=== PATIENT | male | born 1960 | race Hispanic/Latino ===

== ENCOUNTER 2017-07-14 10:44 | Inpatient (IN) | payer MEDICAID, OTHER ==
--- NOTE | 2017-07-14 11:52 | C.PDOC ---
Time Seen by Provider: 07/14/17 11:41 Chief Complaint (Nursing): Lower Extremity Problem/Injury Past Medical History Vital Signs: Last Vital Signs Temp 97.7 F 07/14/17 10:50 Pulse 95 H 07/14/17 10:50 Resp 18 07/14/17 10:50 BP 138/88 07/14/17 10:50 Pulse Ox 96 07/14/17 10:50 - Social History Hx Alcohol Use: Yes Hx Substance Use: Yes ED Course And Treatment O2 Sat by Pulse Oximetry: 96 Progress - Data Reviewed Data Reviewed: Lab, Diagnostic imaging, EKG, Old records Disposition - Disposition Forms: [employer] [employer] (Estonian)
--- NOTE | 2017-07-14 11:54 | C.PDOC ---
History Of Present Illness 56 Y/O MALE C/O NEW ONSET WORSENING KIRKPATRICK FOR SEVERAL MONTHS; NEW ONSET BILATERAL LEG SWELLING FOR 2 WEEKS. PT STATES HIS RIGHT LEG IS CHRONICALLY THINNER VS. LEFT DUE TO PRIOR INJURY. DENIES CHEST PAIN. NOT ON ANY DIURETICS. NO KNOWN HEART PROBLEMS. DENIES SMOKING OR OTHER LUNG DISEASE. EXAM LUNGS CLEAR, L > R LEG SWELLING. BILATERAL. 2+ PITTING EDEMA. NO CELLULITIS. Time Seen by Provider: 07/14/17 11:41 Chief Complaint (Nursing): Lower Extremity Problem/Injury History Per: Patient History/Exam Limitations: no limitations Onset/Duration Of Symptoms: Days Current Symptoms Are (Timing): Still Present Recent travel outside of the [place]: No Past Medical History Reviewed: Historical Data, Nursing Documentation, Vital Signs Vital Signs: Last Vital Signs Temp 97.7 F 07/14/17 10:50 Pulse 83 07/14/17 13:45 Resp 19 07/14/17 13:45 BP 136/95 H 07/14/17 13:45 Pulse Ox 96 07/14/17 15:43 - Medical History PMH: No Chronic Diseases Family History: States: Unknown Family Hx - Social History Hx Alcohol Use: Yes Hx Substance Use: Yes Review Of Systems Except As Marked, All Systems Reviewed And Found Negative. Constitutional: Negative for: Fever, Chills Cardiovascular: Negative for: Chest Pain, Palpitations Respiratory: Positive for: SOB with Excertion. Negative for: Cough Gastrointestinal: Negative for: Nausea, Vomiting, Abdominal Pain Musculoskeletal: Positive for: Other (LEG SWELLING) Skin: Negative for: Rash Neurological: Negative for: Headache, Dizziness Physical Exam - Physical Exam Appears: Non-toxic, No Acute Distress Skin: Normal Color, Warm, Dry Head: Atraumatic, Normacephalic Oral Mucosa: Moist Chest: Symmetrical Cardiovascular: Rhythm Regular Respiratory: Normal Breath Sounds, No Rales, No Rhonchi, No Wheezing Gastrointestinal/Abdominal: Soft, No Tenderness, No Guarding, No Rebound Back: Normal Inspection Extremity: Normal ROM, Capillary Refill (< 2 SEC.), Other (L > R LEG SWELLING. BILATERAL. 2+ PITTING EDEMA. NO CELLULITIS. ) Neurological/Psych: Oriented x3, Normal Speech, Normal Cognition ED Course And Treatment - Laboratory Results Result Diagrams: 07/14/17 12:07 07/14/17 12:07 ECG: Interpreted By Me ECG Rhythm: Sinus Rhythm Interpretation Of ECG: Prolonged QT Rate From EC (bpm) O2 Sat by Pulse Oximetry: 96 (RA) Pulse Ox Interpretation: Normal - Radiology CXR: Interpreted by Me CXR Interpretation: Yes: No Acute Disease - CT Scan/US CT Chest Other Rad Studies (CT/US): Read By Radiologist, Radiology Report Reviewed CT/US Interpretation: Findings: Visualized portions of the inferior thyroid gland appear unremarkable. The mediastinal and hilar vascular structures appear within normal limits. The heart appears within normal limits of size. No large central or segmental pulmonary embolus evident. No focal consolidation. No pleural effusion. No pneumothorax. No suspicious pulmonary nodules measuring greater than 5 mm. Limited visualized portions of the upper abdomen demonstrates diffuse hypoattenuation of the visualized liver consistent with hepatic steatosis. 18 mm probable splenule. Degenerative changes of the spine including confluent anterior osteophyte formation. Impression: No large central or segmental pulmonary embolus identified. Hepatic steatosis. Progress - Re-Evaluation Re-evaluation Note: 07/14/17 15:42 EXAM UN[facility] D/W DR NUNEZ WILL ADMIT - Data Reviewed Data Reviewed: Lab, Diagnostic imaging, EKG, Old records Disposition Counseled Patient/Family Regarding: Studies Performed, Diagnosis - Disposition Disposition: HOSPITALIZED Disposition Time: 15:42 Condition: STABLE - POA Present On Arrival: None - Clinical Impression Clinical Impression: Leg edema, KIRKPATRICK (dyspnea on exertion), Abnormal liver enzymes - Scribe Statement The provider has reviewed the documentation as recorded by the Scribe [facility] [place] All medical record entries made by the Scribe were at my direction and personally dictated by me. I have reviewed the chart and agree that the record accurately reflects my personal performance of the history, physical exam, medical decision making, and the department course for this patient. I have also personally directed, reviewed, and agree with the discharge instructions and disposition. Decision To Admit - Pt Status Changed To: Hospital Disposition Of: Observation - . Bed Request Type: Regular Admitting Physician: Abimael Nunez Patient Diagnosis: Leg edema, KIRKPATRICK (dyspnea on exertion), Abnormal liver enzymes
[2017-07-14 12:16] LABS: BASO # 0.1 K/uL (0.0-0.2); BASO % 0.8 % (0.0-2.0); EOS # 0.1 K/uL (0.0-0.7); EOS % 1.1 % (0.0-4.0); HEMATOCRIT 39.1 % (35.0-51.0); LYMPH # 1.9 K/uL (1.0-4.3); LYMPH % 24.1 % (20.0-40.0); MEAN CELL VOLUME 114.2 fL (80.0-94.0); MEAN CORPUSCULAR HEMOGLOBIN 39.3 pg (27.0-31.0); MEAN CORPUSCULAR HGB CONC 34.4 g/dL (33.0-37.0); MEAN PLATELET VOLUME 7.6 fL (7.2-11.7); MONO % 12.9 % (0.0-10.0); WHITE BLOOD COUNT 7.9 K/uL (4.8-10.8)
[2017-07-14 12:29] LABS: INR 1.1
--- NOTE | 2017-07-14 12:29 | RAD ---
HISTORY: SOB COMPARISON: No prior. TECHNIQUE: Chest PA and lateral FINDINGS: LUNGS: There appears to be some mild pleural-based scarring and tenting right hemidiaphragm. . Note that small nodules or masses may be not visualized on plain film radiographs and there is any concern, followup CT scan recommended PLEURA: No significant pleural effusion identified. No pneumothorax apparent. CARDIOVASCULAR: Normal. OSSEOUS STRUCTURES: ACDF plate seen overlying the lower cervical spine. Mild moderate multilevel degenerative spondylosis of the thoracic spine VISUALIZED UPPER ABDOMEN: Normal. OTHER FINDINGS: None. IMPRESSION: Mild pleural-based scarring and tenting right hemidiaphragm. . See above discussion for additional details
[2017-07-14 12:30] LABS: CHLORIDE 103 mmol/L (98-107); POTASSIUM 3.2 mmol/L (3.6-5.2); SODIUM 141 mmol/L (132-148)
[2017-07-14 12:32] LABS: AST/SGOT 223 U/L (17-59); CARBON DIOXIDE 25 mmol/L (22-30); GFR AFRICAN-AMERICAN > 60
[2017-07-14 12:33] LABS: ALB/GLOB RATIO 0.8 (1.0-2.1); ALKALINE PHOSPHATASE 195 U/L (38-126); ALT/SGPT 84 U/L (21-72); BLOOD UREA NITROGEN 3 mg/dL (9-20); CALCIUM 7.9 mg/dl (8.6-10.4); GLUCOSE,RANDOM 121 mg/dL (75-110); TOTAL PROTEIN 6.7 g/dL (6.3-8.3)
[2017-07-14] MEDS ORDERED: Iodixanol 320 MG/ML 100 ML BOTTLE IV ONE (14:07)
--- NOTE | 2017-07-14 15:26 | CT ---
CTA chest PE protocol Indication: Shortness of breath, rule out PE Technique: Contiguous axial images were obtained through the chest with intravenous contrast enhancement. Sagittal and coronal reconstructions were generated and reviewed. This CT exam was performed using 1 or more of the falling dose reduction techniques: Automated exposure control, adjustment of the MAA and/or kV according to patient size, and/or use of iterative reconstruction technique. IV Contrast: 100 mL Visipaque Radiation dose (DLP): 598.53 MGy-cm. Comparison: Chest x-ray performed 07/14/17 Findings: Visualized portions of the inferior thyroid gland appear unremarkable. The mediastinal and hilar vascular structures appear within normal limits. The heart appears within normal limits of size. No large central or segmental pulmonary embolus evident. No focal consolidation. No pleural effusion. No pneumothorax. No suspicious pulmonary nodules measuring greater than 5 mm. Limited visualized portions of the upper abdomen demonstrates diffuse hypoattenuation of the visualized liver consistent with hepatic steatosis. 18 mm probable splenule. Degenerative changes of the spine including confluent anterior osteophyte formation. Impression: No large central or segmental pulmonary embolus identified. Hepatic steatosis.
[2017-07-14] MEDS ORDERED: Potassium Chloride 20 mEq ER Tab PO ONE ×2 (15:56→16:48)
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
[2017-07-14 16:49] LABS: PHOSPHOROUS 2.2 mg/dL (2.5-4.5)
[2017-07-14 17:08] LABS: T4 7.91 ug/dL (5.5-11.0)
[2017-07-14 17:21] LABS: THYROID STIMULATING HORMONE 1.85 mIU/L (0.46-4.68)
--- NOTE | 2017-07-14 19:07 | US ---
HISTORY: cirrhosis COMPARISON: None. TECHNIQUE: Sonographic evaluation of the abdomen. FINDINGS: LIVER: Liver demonstrates increased echogenicity, likely representing hepatic parenchymal disease or fatty infiltration. This limits evaluation for small masses. No focal large liver mass is identified. No intrahepatic biliary ductal dilatation is identified. Portal vein is patent with normal hepatopetal flow. GALLBLADDER: The gallbladder is physiologically distended. No gallstones, gallbladder wall thickening, or pericholecystic fluid is identified.No sonographic Padilla's sign was appreciated during the exam. COMMON BILE DUCT: Normal in caliber measuring 0.6 cm. PANCREAS: Not visualized due to overlying bowel gas. RIGHT KIDNEY: Measures 12.3cm. Unremarkable in echogenicity. No shadowing renal stone, cyst or hydronephrosis is identified. LEFT KIDNEY: Measures 11.8cm. Unremarkable in echogenicity. No cyst or hydronephrosis is identified .Questionable, non shadowing 0.9 cm echogenic focus, possibly angiomyolipoma or non shadowing renal stone. SPLEEN: Measures 12cm. Normal in size and unremarkable in echotexture. AORTA: No aneurysmal dilatation of the visualized portions. IVC: Visualized portions are unremarkable.. OTHER FINDINGS: None. IMPRESSION: Echogenic liver, likely representing fatty infiltration or hepatic parenchymal disease. Left kidney with a Questionable, non shadowing 0.9 cm echogenic focus, possibly angiomyolipoma or non shadowing renal stone.
[2017-07-14 19:41] LABS: RBC URINE < 1 /hpf (0-3); URINE BACTERIA RARE (<OCC); URINE BILIRUBIN NEGATIVE (NEGATIVE); URINE BLOOD NEGATIVE (NEGATIVE); URINE COLOR Yellow (YELLOW); URINE GLUCOSE (UA) NORMAL (Normal); URINE KETONE NEGATIVE (NEGATIVE); URINE LEUKOCYTE ESTERASE NEG Leu/uL (Negative); URINE PROTEIN NEGATIVE (NEGATIVE); WBC URINE 2 /hpf (0-5)
[2017-07-14] MEDS ORDERED: Bacitracin 500 Units/gm Oint Foilpak UD ONE (19:57)
[2017-07-14] MEDS: Bacitracin 500 Units/gm Oint Foilpak UD TOP SCH (20:00)
[2017-07-14] MEDS: Potassium & Sodium Phosphate PO SCH (20:00)
[2017-07-14] MEDS: Nystatin 100,000 Units/gm Cream(15 gm) TOP SCH (20:07)
[2017-07-15 07:58] LABS: BASO % 0.5 % (0.0-2.0); EOS # 0.1 K/uL (0.0-0.7); EOS % 1.2 % (0.0-4.0); HEMATOCRIT 37.2 % (35.0-51.0); LYMPH # 1.3 K/uL (1.0-4.3); LYMPH % 20.9 % (20.0-40.0); MEAN CELL VOLUME 112.8 fL (80.0-94.0); MEAN CORPUSCULAR HEMOGLOBIN 39.5 pg (27.0-31.0); MEAN CORPUSCULAR HGB CONC 35.1 g/dL (33.0-37.0); MONO # 0.6 K/uL (0.0-0.8); MONO % 10.3 % (0.0-10.0); NRBC % 0.1 % (0.0-2.0); RED CELL DISTRIBUTION WIDTH 14.9 % (11.5-14.5)
[2017-07-15 08:07] LABS: CHLORIDE 101 mmol/L (98-107); SODIUM 138 mmol/L (132-148)
[2017-07-15 08:08] LABS: POTASSIUM 3.5 mmol/L (3.6-5.2)
[2017-07-15 08:09] LABS: GFR AFRICAN-AMERICAN > 60
[2017-07-15 08:10] LABS: ALB/GLOB RATIO 0.8 (1.0-2.1); ALKALINE PHOSPHATASE 205 U/L (38-126); ALT/SGPT 81 U/L (21-72); AST/SGOT 223 U/L (17-59); BILIRUBIN,TOTAL 1.2 mg/dL (0.2-1.3); BLOOD UREA NITROGEN 6 mg/dL (9-20); CARBON DIOXIDE 29 mmol/L (22-30); GLUCOSE,RANDOM 90 mg/dL (75-110); PHOSPHOROUS 3.1 mg/dL (2.5-4.5); TOTAL PROTEIN 6.4 g/dL (6.3-8.3)
[2017-07-15 08:11] LABS: CALCIUM 7.9 mg/dl (8.6-10.4); MAGNESIUM 1.2 mg/dL (1.6-2.3)
[2017-07-15] MEDS: Potassium & Sodium Phosphate PO SCH ×2 (09:31→22:16)
[2017-07-15] MEDS: Enoxaparin 40 mg Syringe SC SCH (09:32)
[2017-07-15] MEDS: Bacitracin 500 Units/gm Oint Foilpak UD TOP SCH ×3 (09:32→18:41)
[2017-07-15] MEDS: Multiple Vitamins Tab PO SCH (09:33)
[2017-07-15] MEDS ORDERED: Potassium Chloride 20 mEq ER Tab PO ONE (10:00)
[2017-07-15] MEDS: Magnesium Sulfate 1 gm in D5W 1 GM/100 ML BAG IVPB SCH ×2 (10:30→10:55)
[2017-07-15] MEDS: Nystatin 100,000 Units/gm Cream(15 gm) TOP SCH ×3 (11:02→18:41)
[2017-07-15] MEDS ORDERED: Magnesium Sulfate 1 gm in D5W 1 GM/100 ML BAG IVPB ONE (12:30)
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
--- NOTE | 2017-07-15 13:21 | PCM.PSYCH ---
Initial Psychiatric Evaluation - Initial Psychiatric Evaluation Type of Admission: Voluntary Legal Status: Capacity Chief Complaint (in patient's own words): "I am alright" History of Present Illness and Precipitating Events: Pt is a 56 y.o. male. Psych consult was requested for alcohol use and a hx of depression. Pt was admitted into the hospital due to severe lower leg swelling bilaterally. Pt also complains of back pain. Pt reports doing "20 shots a day" of alcohol the past couple of months and reports drinking "all his life." Pt denies any withdrawal symptoms currently. Pt also says he smokes marijuana "once in a while." Pt reports no history of seizures. Pt reports feeling "alright" currently. Pt denies SI, AVH, and paranoid delusions. Pt denies feelings of depression, nervousness. Pt reports mild anxiety due to current medical state. Psychiatric Hx: Denies. Never been to detox or rehab. Social Hx: Pt is living with his sister currently. Pt has a girlfriend currently but no children. Pt says he works "on and off" in the [employer] business. Other Medical Hx: HTN Family Psych Hx: Denies Current Medications: Active Medications Generic Name Dose Route Start Last Admin Trade Name Freq PRN Reason Stop Dose Admin Bacitracin 1 ea 07/14/17 18:00 07/15/17 09:32 Bacitracin TOP 1 ea TID [facility] Administration Clonidine HCl 1 patch 07/22/17 10:00 Catapres-Tts2 0.2 Mg/24 Hr TD Q7D@1000 [facility] Docusate Sodium 100 mg 07/14/17 18:00 07/15/17 09:33 Colace PO 100 mg BID [facility] Administration Enalapril Maleate 10 mg 07/15/17 10:00 07/15/17 09:32 Vasotec PO 10 mg DAILY [facility] Administration Enoxaparin Sodium 40 mg 07/15/17 10:00 07/15/17 09:32 Lovenox SC 40 mg DAILY [facility] Administration Escitalopram Oxalate 10 mg 07/15/17 12:15 Lexapro PO DAILY [facility] Famotidine 20 mg 07/15/17 10:00 07/15/17 09:33 Pepcid PO 20 mg DAILY [facility] Administration Folic Acid 1 mg 07/15/17 10:00 07/15/17 09:32 Folic Acid PO 1 mg DAILY [facility] Administration Furosemide 40 mg 07/15/17 10:00 07/15/17 09:32 Lasix IVP 40 mg DAILY [facility] Administration Gabapentin 100 mg 07/14/17 18:00 07/15/17 09:33 Neurontin PO 100 mg TID [facility] Administration Lorazepam 2 mg 07/14/17 18:00 07/15/17 09:32 Ativan PO 07/19/17 17:59 2 mg Q8H [facility] Administration Taper Lorazepam 1 mg 07/14/17 17:10 Ativan IVP Q6H PRN Symptoms of alcohol withdrawl Morphine Sulfate 1 mg 07/14/17 17:03 07/15/17 11:11 Morphine IVP 1 mg Q4 PRN Administration Pain, severe (8-10) Multivitamins 1 tab 07/15/17 10:00 07/15/17 09:33 Hexavitamin PO 1 tab DAILY [facility] Administration Nystatin 1 ea 07/14/17 18:00 07/15/17 11:02 Mycostatin Cream TOP 1 applic TID [facility] Administration Ondansetron HCl 4 mg 07/14/17 17:15 Zofran Inj IVP Q6H PRN Nausea/Vomiting Potassium Phos/Sodium Phos 1 pkt 07/14/17 18:00 07/15/17 09:31 Neutra-Phos PO 07/15/17 18:01 1 pkt BID [facility] Administration Thiamine HCl 100 mg 07/15/17 10:00 07/15/17 09:32 Vitamin B1 Tab PO 100 mg DAILY [facility] Administration Past Psychiatric History - Past Psychiatric History Pertinent Medical Hx (Current Medical&Sleep Prob, Allergies): Allergies Allergy/AdvReac Type Severity Reaction Status Date / Time No Known Allergies Allergy Verified 07/14/17 10:52 No Known Home Med 07/14/17 Review of Systems - Neurological Neurological: UNREMARKABLE - Psychiatric Psychiatric: As Per HPI. absent: Depression, Hallucinations, Paranoia, Suicidal Ideation, Visual Hallucinations Mental Status Examination - Personal Presentation Personal Presentation: Looks stated age - Affect Affect: Broad - Motor Activity Motor Activity: Calm - Reliability in Providing Information Reliability in Providing Information: Good - Speech Speech: Organized - Mood Mood: Neutral - Formal Thought Process Formal Thought Process: No Impairment - Cognitive Functions Orientation: Person, Place, Situation, Time Sensorium: Alert - Risk Risk: Withdrawal - Strength & Assets Inventory Strength & Assets Inventory: Family support DSM 5 DX - DSM 5 DSM 5 Diagnosis: Alcohol use disorder, Severe Alcohol withdrawal Alcohol-induced anxiety disorder Depressive d/o - unspecified - Recommended/Plan of Treatment Treatment Recommendations and Plan of Treatment: Lexapro for depression and anxiety Gabapentinfor alcohol and anxiety Lorazepam for alcohol As needed meds and vitamins [place] for abstinence and CBT for relapse prevention Support and psychoeducation Consider and encourage MAT Refer to after care 33 mins Prognosis: Good with tx
--- NOTE | 2017-07-16 07:11 | CP.PCM.PN ---
<Elen Sloan - Last Filed: 07/16/17 12:19> Subjective - Date & Time of Evaluation Date of Evaluation: 07/16/17 Time of Evaluation: 07:00 - Subjective Subjective: Medicine Note for Dr. Nunez Patient was seen and examined at bedside. Patient states he continues to have bilateral lower extremity swelling and pain but this has reduced immensely since day of admission. Denied any fever, chills, headache, chest pain, abdominal pain, n/v/d/c, or urinary symptoms. Objective - Vital Signs/Intake and Output Vital Signs (last 24 hours): Temp Pulse Resp BP Pulse Ox 98.1 F 88 20 159/104 H 94 L 07/15/17 23:55 07/15/17 23:55 07/15/17 23:55 07/15/17 23:55 07/15/17 23:55 Intake and Output: 07/16/17 07/16/17 06:59 18:59 Intake Total 500 Balance 500 - Medications Medications: Current Medications Bacitracin (Bacitracin) 1 ea TOP TID [facility] Last Admin: 07/15/17 18:41 Dose: 1 ea Clonidine HCl (Catapres) 0.2 mg PO BID [facility] Last Admin: 07/15/17 18:40 Dose: 0.2 mg Docusate Sodium (Colace) 100 mg PO BID [facility] Last Admin: 07/15/17 18:40 Dose: 100 mg Enalapril Maleate (Vasotec) 10 mg PO DAILY [facility] Last Admin: 07/15/17 09:32 Dose: 10 mg Enoxaparin Sodium (Lovenox) 40 mg SC DAILY [facility] Last Admin: 07/15/17 09:32 Dose: 40 mg Escitalopram Oxalate (Lexapro) 10 mg PO DAILY [facility] Last Admin: 07/15/17 13:16 Dose: 10 mg Famotidine (Pepcid) 20 mg PO DAILY [facility] Last Admin: 07/15/17 09:33 Dose: 20 mg Folic Acid (Folic Acid) 1 mg PO DAILY [facility] Last Admin: 07/15/17 09:32 Dose: 1 mg Furosemide (Lasix) 40 mg IVP DAILY [facility] Last Admin: 07/15/17 09:32 Dose: 40 mg Gabapentin (Neurontin) 100 mg PO TID [facility] Last Admin: 07/15/17 18:40 Dose: 100 mg Lorazepam (Ativan) 1 mg PO Q6H [facility] PRN Reason: Taper Stop: 07/19/17 17:59 Last Admin: 07/16/17 00:21 Dose: 1 mg Lorazepam (Ativan) 1 mg IVP Q6H PRN PRN Reason: Symptoms of alcohol withdrawl Morphine Sulfate (Morphine) 1 mg IVP Q4 PRN PRN Reason: Pain, severe (8-10) Last Admin: 07/16/17 00:20 Dose: 1 mg Multivitamins (Hexavitamin) 1 tab PO DAILY [facility] Last Admin: 07/15/17 09:33 Dose: 1 tab Nystatin (Mycostatin Cream) 1 ea TOP TID [facility] Last Admin: 07/15/17 18:41 Dose: 1 applic Ondansetron HCl (Zofran Inj) 4 mg IVP Q6H PRN PRN Reason: Nausea/Vomiting Thiamine HCl (Vitamin B1 Tab) 100 mg PO DAILY [facility] Last Admin: 07/15/17 09:32 Dose: 100 mg - Labs Labs: 07/15/17 07:46 07/15/17 07:46 PT 12.8 SECONDS (9.7-12.2) H 07/14/17 12:07 INR 1.1 07/14/17 12:07 APTT 34 SECONDS (21-34) 07/14/17 12:07 - Constitutional Appears: No Acute Distress - Head Exam Head Exam: NORMAL INSPECTION, NORMOCEPHALIC - Eye Exam Eye Exam: EOMI, Normal appearance, PERRL. absent: Nystagmus Pupil Exam: NORMAL ACCOMODATION - ENT Exam ENT Exam: Mucous Membranes Moist - Respiratory Exam Respiratory Exam: Clear to Ausculation Bilateral, NORMAL BREATHING PATTERN. absent: Decreased Breath Sounds - Cardiovascular Exam Cardiovascular Exam: REGULAR RHYTHM, RRR, +S1, +S2 - GI/Abdominal Exam GI & Abdominal Exam: Soft, Normal Bowel Sounds. absent: Distended, Tenderness - Extremities Exam Extremities Exam: Pedal Edema Additional comments: reduction on swelling since day of admission. - Neurological Exam Neurological Exam: Alert, Awake, Oriented x3 - Psychiatric Exam Psychiatric exam: Depressed - Skin Skin Exam: Dry, Intact, Normal Color, Warm Assessment and Plan - Assessment and Plan (Free Text) Plan: Dyspnea * Most likey 2/2 ascites * BNP: 253 * D-Dimer = 340 * CTA - negative for PE, no ascites noted * CXR: Mild pleural-based scarring and tenting right hemidiaphragm. ACDF plate seen overlying the lower cervical spine. Mild moderate multilevel degenerative spondylosis of the thoracic spine * EKG NSR @ 77 BPM with prolonged QT - 446 Cirrhosis * 2/2 Alcohol Abuse * CTA - hepatic steotosis * INR: 1.1, albumin 3.0, AST/ALT: 223/ 84 * Abdominal US - hepatic steotosis, no ascites noted * Performed bedside US, no fluid seen. Hx of Alcohol Abuse * [facility] Protocol * Ativan Taper on day 3 - 1mg PO Q8H, 07/17/17 1mg Q12, 07/18/17 1mg PO daily. * Ativan 1mg IVP Q6H PRN - alcohol withdrawal symptoms * Thiamine, Folic acid, and MV PO daily * No fluids started due to ascites and BL LE swelling * Alcohol level - 343 * UDS - + opiates, cannabinoids * Psychiatry consulted- help appreciated - As needed meds and vitamins. Attend groups and activities. [place] for abstinence and CBT for relapse prevention. Support and psychoeducation. Consider and encourage MAT Bilateral LE swelling * Venous dopplers ordered to rule out DVT - negative * Lasix 40mg IVP daily * Neurontin 100mg PO TID Transaminitis * CTA - Hepatic steatosis * AST/ALT: 223/ 84 * Hepatitis panel - negative HTN * Started on Vasotec 10mg PO daily * TSH, T4, HGBA1C - WNL * Clonidine 0.2mg PO BID * Lipid panel - WNL * F/U ECHO Electrolyte Imbalance * Potassium, magnesium, phosphorous - low * Repleted Prophylactic Measure * GI PPX: Pepcid 20mg PO daily * DVT PPX: Lovenox 40U SC daily, SCDs c/i due to BL LE swelling * Hepatic Diet * Peak Flow * Incentive spirometry DW Nathalia Mercer DO, PGY-1 <Abimael Nunez - Last Filed: 07/16/17 15:00> Objective - Vital Signs/Intake and Output Vital Signs (last 24 hours): Temp Pulse Resp BP Pulse Ox 97.8 F 83 20 152/90 H 95 07/16/17 07:31 07/16/17 12:06 07/16/17 07:31 07/16/17 11:02 07/16/17 12:06 Intake and Output: 07/16/17 07/16/17 06:59 18:59 Intake Total 500 Balance 500 - Medications Medications: Current Medications Bacitracin (Bacitracin) 1 ea TOP TID [facility] Last Admin: 07/16/17 13:29 Dose: 1 ea Clonidine HCl (Catapres) 0.2 mg PO BID [facility] Last Admin: 07/16/17 10:55 Dose: 0.2 mg Docusate Sodium (Colace) 100 mg PO BID [facility] Last Admin: 07/16/17 10:55 Dose: 100 mg Enalapril Maleate (Vasotec) 10 mg PO DAILY [facility] Last Admin: 07/16/17 10:55 Dose: 10 mg Enoxaparin Sodium (Lovenox) 40 mg SC DAILY [facility] Last Admin: 07/16/17 10:55 Dose: 40 mg Escitalopram Oxalate (Lexapro) 10 mg PO DAILY [facility] Last Admin: 07/16/17 10:55 Dose: 10 mg Famotidine (Pepcid) 20 mg PO DAILY [facility] Last Admin: 07/16/17 10:55 Dose: 20 mg Folic Acid (Folic Acid) 1 mg PO DAILY [facility] Last Admin: 07/16/17 10:55 Dose: 1 mg Furosemide (Lasix) 40 mg IVP DAILY [facility] Last Admin: 07/16/17 10:55 Dose: 40 mg Gabapentin (Neurontin) 100 mg PO TID [facility] Last Admin: 07/16/17 13:29 Dose: 100 mg Lorazepam (Ativan) 1 mg PO Q6H [facility] PRN Reason: Taper Stop: 07/19/17 17:59 Last Admin: 07/16/17 12:33 Dose: 1 mg Lorazepam (Ativan) 1 mg IVP Q6H PRN PRN Reason: Symptoms of alcohol withdrawl Morphine Sulfate (Morphine) 1 mg IVP Q4 PRN PRN Reason: Pain, severe (8-10) Last Admin: 07/16/17 00:20 Dose: 1 mg Multivitamins (Hexavitamin) 1 tab PO DAILY [facility] Last Admin: 07/16/17 10:55 Dose: 1 tab Nystatin (Mycostatin Cream) 1 ea TOP TID [facility] Last Admin: 07/16/17 13:30 Dose: 1 applic Ondansetron HCl (Zofran Inj) 4 mg IVP Q6H PRN PRN Reason: Nausea/Vomiting Thiamine HCl (Vitamin B1 Tab) 100 mg PO DAILY [facility] Last Admin: 07/16/17 10:55 Dose: 100 mg - Labs Labs: 07/16/17 08:01 07/16/17 08:01 PT 12.8 SECONDS (9.7-12.2) H 07/14/17 12:07 INR 1.1 07/14/17 12:07 APTT 34 SECONDS (21-34) 07/14/17 12:07 Attending/Attestation - Attestation I have personally seen and examined this patient.: Yes I have fully participated in the care of the patient.: Yes I have reviewed all pertinent clinical information, including history, physical exam and plan: Yes Notes (Text): 07/16/17 14:59 Patient was seen and examined at bedside with the resident Still complains of shortness of breath on ambulation We will obtain pulmonary function tests Monitor peak flow Patient continues to be on Ativan taper for alcohol withdrawal. He is also on Lasix for lower extremity swelling and the swelling is trending down I discussed the plan of care with the resident and agree with the history and physical and assessment/plan recommended by the resident
[2017-07-16 08:15] LABS: BASO # 0.1 K/uL (0.0-0.2); BASO % 0.9 % (0.0-2.0); EOS # 0.1 K/uL (0.0-0.7); EOS % 2.1 % (0.0-4.0); HEMATOCRIT 38.2 % (35.0-51.0); LYMPH # 1.3 K/uL (1.0-4.3); LYMPH % 21.7 % (20.0-40.0); MEAN CORPUSCULAR HEMOGLOBIN 40.1 pg (27.0-31.0); MEAN CORPUSCULAR HGB CONC 35.2 g/dL (33.0-37.0); MEAN PLATELET VOLUME 9.9 fL (7.2-11.7); MONO # 0.5 K/uL (0.0-0.8); MONO % 9.4 % (0.0-10.0); NRBC % 0.1 % (0.0-2.0); RED CELL DISTRIBUTION WIDTH 15.2 % (11.5-14.5); WHITE BLOOD COUNT 5.8 K/uL (4.8-10.8)
[2017-07-16 08:27] LABS: CHLORIDE 97 mmol/L (98-107); SODIUM 134 mmol/L (132-148)
[2017-07-16 08:29] LABS: ALB/GLOB RATIO 0.8 (1.0-2.1); ALKALINE PHOSPHATASE 195 U/L (38-126); ALT/SGPT 76 U/L (21-72); AST/SGOT 189 U/L (17-59); BLOOD UREA NITROGEN 7 mg/dL (9-20); CARBON DIOXIDE 29 mmol/L (22-30); CHOLESTEROL 146 mg/dL (0-199); GFR AFRICAN-AMERICAN > 60; GLUCOSE,RANDOM 88 mg/dL (75-110); TOTAL PROTEIN 6.5 g/dL (6.3-8.3)
[2017-07-16 08:30] LABS: CALCIUM 7.9 mg/dl (8.6-10.4); MAGNESIUM 1.5 mg/dL (1.6-2.3); PHOSPHOROUS 2.8 mg/dL (2.5-4.5)
[2017-07-16] MEDS: Bacitracin 500 Units/gm Oint Foilpak UD TOP SCH ×3 (10:55→17:35)
[2017-07-16] MEDS: Multiple Vitamins Tab PO SCH (10:55)
[2017-07-16] MEDS: Enoxaparin 40 mg Syringe SC SCH (10:55)
[2017-07-16] MEDS: Nystatin 100,000 Units/gm Cream(15 gm) TOP SCH ×3 (10:55→17:39)
--- NOTE | 2017-07-16 11:40 | VASCLAB ---
PROCEDURE: Lower Extremity Venous Duplex Exam. HISTORY: SWELLING, SOB PRIORS: No previous vascular study. TECHNIQUE: Bilateral common femoral, femoral, popliteal and posterior tibial, peroneal and great saphenous veins were evaluated. Flow was assessed with color Doppler, compressibility, assessment of phasic flow and augmentation response. Report prepared by NADIA Landon FINDINGS: RIGHT: 1. Common Femoral Vein: 1.1. Compressibility - Fully compressible: Thrombus - None : Flow - Phasic: Augmentation -Normal: Reflux - None. 2. Femoral Vein: 2.1. Compressibility - Fully compressible: Thrombus - None : Flow - Phasic: Augmentation -Normal: Reflux - None. 3. Popliteal Vein: 3.1. Compressibility - Fully compressible: Thrombus - None : Flow - Phasic: Augmentation -Normal: Reflux - None. 4. Posterior Tibial Vein: 4.1. Compressibility - Fully compressible: Thrombus - None: Flow - Phasic: Augmentation -Normal: Reflux - None. 5. Peroneal Vein: 5.1. Compressibility - Fully compressible: Thrombus - None: Flow - Phasic: Augmentation -Normal: Reflux - None. 6. Great Saphenous Vein: 6.1. Compressibility - Fully compressible: Thrombus - None: Flow - Phasic: Augmentation - Normal: Reflux - Moderate.3.14seconds LEFT: 1. Common Femoral Vein: 1.1. Compressibility - Fully compressible: Thrombus - None: Flow - Phasic: Augmentation -Normal: Reflux - None. 2. Femoral Vein: 2.1. Compressibility - Fully compressible: Thrombus - None: Flow - Phasic: Augmentation -Normal: Reflux - None. 3. Popliteal Vein: 3.1. Compressibility - Fully compressible: Thrombus - None : Flow - Phasic: Augmentation -Normal: Reflux - None. 4. Posterior Tibial Vein: 4.1. Compressibility - Fully compressible: Thrombus - None: Flow - Phasic: Augmentation -Normal: Reflux - None. 5. Peroneal Vein: 5.1. Compressibility - Fully compressible: Thrombus - None: Flow - Phasic: Augmentation -Normal: Reflux - None. 6. Great Saphenous Vein: 6.1. Compressibility - Fully compressible: Thrombus - None: Flow - Phasic: Augmentation - Normal: Reflux - None. OTHER FINDINGS: Right: None significant. Left: None significant. IMPRESSION: Right: No evidence of deep or superficial vein thrombosis of the right lower extremity. Valvular incompetence is noted of the right great saphenous vein. Left: No evidence of deep or superficial vein thrombosis of the left lower extremity. Normal valve function noted of the left side.
[2017-07-16] MEDS ORDERED: Potassium Chloride 20 mEq ER Tab PO ONE (12:30)
[2017-07-16] MEDS: Magnesium Sulfate 1 gm in D5W 1 GM/100 ML BAG IVPB SCH ×2 (12:33→13:29)
[2017-07-17 07:40] LABS: BASO % 0.5 % (0.0-2.0); EOS # 0.1 K/uL (0.0-0.7); EOS % 1.7 % (0.0-4.0); HEMATOCRIT 39.6 % (35.0-51.0); LYMPH # 1.5 K/uL (1.0-4.3); LYMPH % 22.5 % (20.0-40.0); MEAN CELL VOLUME 115.5 fL (80.0-94.0); MEAN CORPUSCULAR HEMOGLOBIN 39.8 pg (27.0-31.0); MEAN CORPUSCULAR HGB CONC 34.4 g/dL (33.0-37.0); MONO # 0.6 K/uL (0.0-0.8); MONO % 8.7 % (0.0-10.0); NRBC % 0.1 % (0.0-2.0); RED CELL DISTRIBUTION WIDTH 15.1 % (11.5-14.5); WHITE BLOOD COUNT 6.6 K/uL (4.8-10.8)
[2017-07-17 07:47] LABS: CHLORIDE 96 mmol/L (98-107)
[2017-07-17 07:48] LABS: POTASSIUM 4.5 mmol/L (3.6-5.2); SODIUM 133 mmol/L (132-148)
[2017-07-17 07:50] LABS: ALB/GLOB RATIO 0.8 (1.0-2.1); ALKALINE PHOSPHATASE 186 U/L (38-126); AST/SGOT 176 U/L (17-59); BLOOD UREA NITROGEN 10 mg/dL (9-20); CARBON DIOXIDE 28 mmol/L (22-30); GFR AFRICAN-AMERICAN > 60; GLUCOSE,RANDOM 84 mg/dL (75-110); TOTAL PROTEIN 6.9 g/dL (6.3-8.3)
[2017-07-17 07:51] LABS: ALT/SGPT 69 U/L (21-72); CALCIUM 8.1 mg/dl (8.6-10.4); MAGNESIUM 1.9 mg/dL (1.6-2.3); PHOSPHOROUS 2.9 mg/dL (2.5-4.5)
[2017-07-17] MEDS: Multiple Vitamins Tab PO SCH (10:05)
[2017-07-17] MEDS: Nystatin 100,000 Units/gm Cream(15 gm) TOP SCH ×3 (10:07→17:40)
[2017-07-17] MEDS: Bacitracin 500 Units/gm Oint Foilpak UD TOP SCH ×3 (10:07→17:39)
[2017-07-17] MEDS: Enoxaparin 40 mg Syringe SC SCH (10:08)
--- NOTE | 2017-07-17 13:43 | CP.PCM.PN ---
<Elen Sloan - Last Filed: 07/17/17 13:40> Subjective - Date & Time of Evaluation Date of Evaluation: 07/17/17 Time of Evaluation: 07:00 - Subjective Subjective: Medicine Note for Dr. Nunez Patient was seen and examined at bedside. Patient states he continues to have bilateral lower extremity swelling and pain but this has reduced immensely since day of admission. Patient now recalls that has had episodes of blood tinged sputum the past couple of months. This last happened 2 weeks ago. Denied any fever, chills, headache, chest pain, abdominal pain, n/v/d/c, or urinary symptoms. Objective - Vital Signs/Intake and Output Vital Signs (last 24 hours): Temp Pulse Resp BP Pulse Ox 97.6 F 69 20 126/82 96 07/17/17 08:03 07/17/17 08:03 07/17/17 08:03 07/17/17 10:07 07/17/17 08:03 Intake and Output: 07/17/17 07/17/17 06:59 18:59 Intake Total 400 Balance 400 - Medications Medications: Current Medications Bacitracin (Bacitracin) 1 ea TOP TID [facility] Last Admin: 07/17/17 10:07 Dose: 1 ea Clonidine HCl (Catapres) 0.2 mg PO BID [facility] Last Admin: 07/17/17 10:05 Dose: 0.2 mg Docusate Sodium (Colace) 100 mg PO BID [facility] Last Admin: 07/17/17 10:06 Dose: 100 mg Enalapril Maleate (Vasotec) 10 mg PO DAILY [facility] Last Admin: 07/17/17 10:06 Dose: 10 mg Enoxaparin Sodium (Lovenox) 40 mg SC DAILY [facility] Last Admin: 07/17/17 10:08 Dose: 40 mg Escitalopram Oxalate (Lexapro) 10 mg PO DAILY [facility] Last Admin: 07/17/17 10:05 Dose: 10 mg Famotidine (Pepcid) 20 mg PO DAILY [facility] Last Admin: 07/17/17 10:05 Dose: 20 mg Folic Acid (Folic Acid) 1 mg PO DAILY [facility] Last Admin: 07/17/17 10:05 Dose: 1 mg Furosemide (Lasix) 40 mg IVP DAILY [facility] Last Admin: 07/17/17 10:07 Dose: 40 mg Gabapentin (Neurontin) 100 mg PO TID [facility] Last Admin: 07/17/17 10:05 Dose: 100 mg Lorazepam (Ativan) 1 mg PO Q8H [facility] PRN Reason: Taper Stop: 07/19/17 17:59 Last Admin: 07/17/17 10:05 Dose: 1 mg Lorazepam (Ativan) 1 mg IVP Q6H PRN PRN Reason: Symptoms of alcohol withdrawl Morphine Sulfate (Morphine) 1 mg IVP Q4 PRN PRN Reason: Pain, severe (8-10) Last Admin: 07/17/17 08:38 Dose: 1 mg Multivitamins (Hexavitamin) 1 tab PO DAILY [facility] Last Admin: 07/17/17 10:05 Dose: 1 tab Nystatin (Mycostatin Cream) 1 ea TOP TID [facility] Last Admin: 07/17/17 10:07 Dose: 1 applic Ondansetron HCl (Zofran Inj) 4 mg IVP Q6H PRN PRN Reason: Nausea/Vomiting Thiamine HCl (Vitamin B1 Tab) 100 mg PO DAILY [facility] Last Admin: 07/17/17 10:05 Dose: 100 mg - Labs Labs: 07/17/17 07:21 07/17/17 07:21 PT 12.8 SECONDS (9.7-12.2) H 07/14/17 12:07 INR 1.1 07/14/17 12:07 APTT 34 SECONDS (21-34) 07/14/17 12:07 - Constitutional Appears: No Acute Distress - Head Exam Head Exam: NORMAL INSPECTION - Eye Exam Eye Exam: EOMI, Normal appearance, PERRL. absent: Nystagmus, Scleral icterus Pupil Exam: NORMAL ACCOMODATION - ENT Exam ENT Exam: Mucous Membranes Moist - Respiratory Exam Respiratory Exam: NORMAL BREATHING PATTERN. absent: Decreased Breath Sounds - Cardiovascular Exam Cardiovascular Exam: REGULAR RHYTHM, RRR, +S1, +S2 - GI/Abdominal Exam GI & Abdominal Exam: Distended, Soft, Normal Bowel Sounds - Extremities Exam Extremities Exam: Pedal Edema Additional comments: reduction on swelling since day of admission. - Neurological Exam Neurological Exam: Alert, Awake, Oriented x3 - Skin Skin Exam: Dry, Intact, Normal Color, Warm Assessment and Plan - Assessment and Plan (Free Text) Plan: Blood Tinged Sputum * R/O TB * Last blood tinged sputum was 2 weeks ago * AFB x3 Q8H, Contact Isolation: Airborne * F/U Quantiferon Dyspnea * Most likey 2/2 ascites * BNP: 253 * D-Dimer = 340 * CTA - negative for PE, no ascites noted * CXR: Mild pleural-based scarring and tenting right hemidiaphragm. ACDF plate seen overlying the lower cervical spine. Mild moderate multilevel degenerative spondylosis of the thoracic spine * EKG NSR @ 77 BPM with prolonged QT - 446 * Persistent SOB * Pulmonary consulted- Dr. Goldstein - help appreciated Hx of Alcohol Abuse * [facility] Protocol * Ativan Taper 07/17/17 1mg Q12, 07/18/17 1mg PO daily * Ativan 1mg IVP Q6H PRN - alcohol withdrawal symptoms * Thiamine, Folic acid, and MV PO daily * No fluids started due to ascites and BL LE swelling * Alcohol level - 343 * UDS - + opiates, cannabinoids * Psychiatry consulted- help appreciated - As needed meds and vitamins. Attend groups and activities. [place] for abstinence and CBT for relapse prevention. Support and psychoeducation. Consider and encourage MAT Cirrhosis * 2/2 Alcohol Abuse * CTA - hepatic steotosis * INR: 1.1, albumin 3.0, AST/ALT: 223/ 84 * Abdominal US - hepatic steotosis, no ascites noted * Performed bedside US, no fluid seen. Bilateral LE swelling * Venous dopplers ordered to rule out DVT - negative * Lasix 40mg IVP daily * Neurontin 100mg PO TID Transaminitis * CTA - Hepatic steatosis * AST/ALT: 223/ 84 * Hepatitis panel - negative HTN * Started on Vasotec 10mg PO daily * TSH, T4, HGBA1C - WNL * Clonidine 0.2mg PO BID * Lipid panel - WNL * F/U ECHO Electrolyte Imbalance * Potassium, magnesium, phosphorous - low * Repleted Prophylactic Measure * GI PPX: Pepcid 20mg PO daily * DVT PPX: Lovenox 40U SC daily, SCDs c/i due to BL LE swelling * Hepatic Diet * Peak Flow * Incentive spirometry DW Nathalia Mercer DO, PGY-1 <Abimael Nunez - Last Filed: 07/17/17 17:38> Objective - Vital Signs/Intake and Output Vital Signs (last 24 hours): Temp Pulse Resp BP Pulse Ox 97.7 F 68 20 95/60 L 95 07/17/17 15:42 07/17/17 15:42 07/17/17 15:42 07/17/17 15:42 07/17/17 15:42 Intake and Output: 07/17/17 07/17/17 06:59 18:59 Intake Total 400 Balance 400 - Medications Medications: Current Medications Bacitracin (Bacitracin) 1 ea TOP TID [facility] Last Admin: 07/17/17 14:32 Dose: 1 ea Clonidine HCl (Catapres) 0.2 mg PO BID [facility] Last Admin: 07/17/17 10:05 Dose: 0.2 mg Docusate Sodium (Colace) 100 mg PO BID [facility] Last Admin: 07/17/17 10:06 Dose: 100 mg Enalapril Maleate (Vasotec) 10 mg PO DAILY [facility] Last Admin: 07/17/17 10:06 Dose: 10 mg Enoxaparin Sodium (Lovenox) 40 mg SC DAILY [facility] Last Admin: 07/17/17 10:08 Dose: 40 mg Escitalopram Oxalate (Lexapro) 10 mg PO DAILY [facility] Last Admin: 07/17/17 10:05 Dose: 10 mg Famotidine (Pepcid) 20 mg PO DAILY [facility] Last Admin: 07/17/17 10:05 Dose: 20 mg Folic Acid (Folic Acid) 1 mg PO DAILY [facility] Last Admin: 07/17/17 10:05 Dose: 1 mg Furosemide (Lasix) 40 mg IVP DAILY [facility] Last Admin: 07/17/17 10:07 Dose: 40 mg Gabapentin (Neurontin) 100 mg PO TID [facility] Last Admin: 07/17/17 14:32 Dose: 100 mg Lorazepam (Ativan) 1 mg PO Q8H [facility] PRN Reason: Taper Stop: 07/19/17 17:59 Last Admin: 07/17/17 10:05 Dose: 1 mg Lorazepam (Ativan) 1 mg IVP Q6H PRN PRN Reason: Symptoms of alcohol withdrawl Morphine Sulfate (Morphine) 1 mg IVP Q4 PRN PRN Reason: Pain, severe (8-10) Last Admin: 07/17/17 14:32 Dose: 1 mg Multivitamins (Hexavitamin) 1 tab PO DAILY [facility] Last Admin: 07/17/17 10:05 Dose: 1 tab Nystatin (Mycostatin Cream) 1 ea TOP TID [facility] Last Admin: 07/17/17 14:32 Dose: 1 applic Ondansetron HCl (Zofran Inj) 4 mg IVP Q6H PRN PRN Reason: Nausea/Vomiting Thiamine HCl (Vitamin B1 Tab) 100 mg PO DAILY [facility] Last Admin: 07/17/17 10:05 Dose: 100 mg - Labs Labs: 07/17/17 07:21 07/17/17 07:21 PT 12.8 SECONDS (9.7-12.2) H 07/14/17 12:07 INR 1.1 07/14/17 12:07 APTT 34 SECONDS (21-34) 07/14/17 12:07 Attending/Attestation - Attestation I have personally seen and examined this patient.: Yes I have fully participated in the care of the patient.: Yes I have reviewed all pertinent clinical information, including history, physical exam and plan: Yes Notes (Text): 07/17/17 17:38 Patient was seen and examined at bedside with the resident Patient stated that Breathing is improved Lower extremity swelling is also improving We will obtain a pulmonary consult for persistent shortness of breath Follow-up echocardiogram report. I discussed the plan of care with the resident I agree with the assessment plan documented above.
[2017-07-17 14:36] LABS: FOLATE 5.6 ng/mL
[2017-07-18 07:38] LABS: BASO % 0.5 % (0.0-2.0); EOS # 0.1 K/uL (0.0-0.7); HEMATOCRIT 39.6 % (35.0-51.0); LYMPH # 1.1 K/uL (1.0-4.3); LYMPH % 14.1 % (20.0-40.0); MEAN CELL VOLUME 114.4 fL (80.0-94.0); MEAN CORPUSCULAR HEMOGLOBIN 39.5 pg (27.0-31.0); MEAN CORPUSCULAR HGB CONC 34.5 g/dL (33.0-37.0); MEAN PLATELET VOLUME 9.2 fL (7.2-11.7); MONO # 0.9 K/uL (0.0-0.8); MONO % 11.1 % (0.0-10.0); NRBC % 0.1 % (0.0-2.0); RED CELL DISTRIBUTION WIDTH 14.7 % (11.5-14.5)
[2017-07-18 08:05] LABS: CHLORIDE 95 mmol/L (98-107)
[2017-07-18 08:06] LABS: POTASSIUM 4.3 mmol/L (3.6-5.2); SODIUM 130 mmol/L (132-148)
[2017-07-18 08:07] LABS: GFR AFRICAN-AMERICAN > 60
[2017-07-18 08:08] LABS: ALB/GLOB RATIO 0.8 (1.0-2.1); ALKALINE PHOSPHATASE 175 U/L (38-126); ALT/SGPT 68 U/L (21-72); AST/SGOT 176 U/L (17-59); BILIRUBIN,TOTAL 2.1 mg/dL (0.2-1.3); BLOOD UREA NITROGEN 13 mg/dL (9-20); CARBON DIOXIDE 26 mmol/L (22-30); GLUCOSE,RANDOM 98 mg/dL (75-110); PHOSPHOROUS 3.5 mg/dL (2.5-4.5); TOTAL PROTEIN 6.9 g/dL (6.3-8.3)
[2017-07-18 08:09] LABS: CALCIUM 8.3 mg/dl (8.6-10.4); MAGNESIUM 1.7 mg/dL (1.6-2.3)
[2017-07-18] MEDS: Bacitracin 500 Units/gm Oint Foilpak UD TOP SCH ×3 (11:00→19:45)
[2017-07-18] MEDS: Enoxaparin 40 mg Syringe SC SCH (11:00)
[2017-07-18] MEDS: Multiple Vitamins Tab PO SCH (11:00)
[2017-07-18] MEDS: Nystatin 100,000 Units/gm Cream(15 gm) TOP SCH ×3 (11:00→18:00)
--- NOTE | 2017-07-18 13:07 | RAD ---
PROCEDURE: Right Wrist Radiographs. HISTORY: s/p fall, pain, decreased ROM COMPARISON: None. FINDINGS: BONES: No fracture identified. JOINTS: Normal. No dislocation. SOFT TISSUES: Normal. OTHER FINDINGS: None. IMPRESSION: No radiographic evidence of fracture.
--- NOTE | 2017-07-18 15:53 | CP.PCM.PN ---
<Deion Strauss - Last Filed: 07/18/17 22:44> Subjective - Date & Time of Evaluation Date of Evaluation: 07/18/17 Time of Evaluation: 07:20 - Subjective Subjective: PGY-[address] Vini Nunez Patient seen and examined at bedside. Patient reports pain in his right wrist and improved swelling in his feet. He reports that he is currently not coughing up blood tinged sputum. Denies fevers, chills, headaches, dizziness, chest pain , SOB, abdominal pain, dysuria. Objective - Vital Signs/Intake and Output Vital Signs (last 24 hours): Temp Pulse Resp BP Pulse Ox 98.2 F 78 20 121/79 95 07/18/17 15:42 07/18/17 15:42 07/18/17 15:42 07/18/17 15:42 07/18/17 15:42 Intake and Output: 07/18/17 07/18/17 06:59 18:59 Intake Total 400 Balance 400 - Medications Medications: Current Medications Bacitracin (Bacitracin) 1 ea TOP TID [facility] Last Admin: 07/18/17 14:50 Dose: 1 ea Clonidine HCl (Catapres) 0.2 mg PO BID [facility] Last Admin: 07/18/17 11:00 Dose: 0.2 mg Docusate Sodium (Colace) 100 mg PO BID [facility] Last Admin: 07/18/17 11:00 Dose: 100 mg Enalapril Maleate (Vasotec) 10 mg PO DAILY [facility] Last Admin: 07/18/17 11:42 Dose: 10 mg Enoxaparin Sodium (Lovenox) 40 mg SC DAILY [facility] Last Admin: 07/18/17 11:00 Dose: 40 mg Escitalopram Oxalate (Lexapro) 10 mg PO DAILY [facility] Last Admin: 07/18/17 11:00 Dose: 10 mg Famotidine (Pepcid) 20 mg PO DAILY [facility] Last Admin: 07/18/17 11:00 Dose: 20 mg Folic Acid (Folic Acid) 1 mg PO DAILY [facility] Last Admin: 07/18/17 11:00 Dose: 1 mg Furosemide (Lasix) 40 mg IVP DAILY [facility] Last Admin: 07/18/17 11:00 Dose: 40 mg Gabapentin (Neurontin) 100 mg PO TID [facility] Last Admin: 07/18/17 14:50 Dose: 100 mg Lorazepam (Ativan) 1 mg PO Q12H [facility] PRN Reason: Taper Stop: 07/19/17 17:59 Last Admin: 07/18/17 05:35 Dose: 1 mg Lorazepam (Ativan) 1 mg IVP Q6H PRN PRN Reason: Symptoms of alcohol withdrawl Morphine Sulfate (Morphine) 1 mg IVP Q4 PRN PRN Reason: Pain, severe (8-10) Last Admin: 07/18/17 11:47 Dose: 1 mg Multivitamins (Hexavitamin) 1 tab PO DAILY [facility] Last Admin: 07/18/17 11:00 Dose: 1 tab Nystatin (Mycostatin Cream) 1 ea TOP TID [facility] Last Admin: 07/18/17 13:50 Dose: 1 applic Ondansetron HCl (Zofran Inj) 4 mg IVP Q6H PRN PRN Reason: Nausea/Vomiting Thiamine HCl (Vitamin B1 Tab) 100 mg PO DAILY [facility] Last Admin: 07/18/17 11:00 Dose: 100 mg - Labs Labs: 07/18/17 07:28 07/18/17 07:28 PT 12.8 SECONDS (9.7-12.2) H 07/14/17 12:07 INR 1.1 07/14/17 12:07 APTT 34 SECONDS (21-34) 07/14/17 12:07 - Constitutional Appears: No Acute Distress - Head Exam Head Exam: ATRAUMATIC, NORMAL INSPECTION, NORMOCEPHALIC - Eye Exam Eye Exam: EOMI, PERRL - ENT Exam ENT Exam: Mucous Membranes Moist - Respiratory Exam Respiratory Exam: Clear to Ausculation Bilateral. absent: Rales, Rhonchi, Wheezes - Cardiovascular Exam Cardiovascular Exam: REGULAR RHYTHM, +S1, +S2 - GI/Abdominal Exam GI & Abdominal Exam: Distended, Soft, Normal Bowel Sounds. absent: Tenderness - Extremities Exam Additional comments: Pedal edema bilateral lower extremities. right wrist erythema. - Neurological Exam Neurological Exam: Alert, Awake, Oriented x3 - Skin Skin Exam: Dry, Intact, Warm Assessment and Plan - Assessment and Plan (Free Text) Plan: Blood Tinged Sputum * R/O TB * Last blood tinged sputum was 2 weeks ago * AFB x3 Q8H, Contact Isolation: Airborne * F/U Quantiferon Dyspnea * Most likey 2/2 ascites * BNP: 253 * D-Dimer = 340 * CTA - negative for PE, no ascites noted * CXR: Mild pleural-based scarring and tenting right hemidiaphragm. ACDF plate seen overlying the lower cervical spine. Mild moderate multilevel degenerative spondylosis of the thoracic spine * EKG NSR @ 77 BPM with prolonged QT - 446 * Persistent SOB * Pulmonary consulted- Dr. Goldstein - help appreciated Hx of Alcohol Abuse * [facility] Protocol * Ativan Taper 07/17/17 1mg Q12, 07/18/17 1mg PO daily * Ativan 1mg IVP Q6H PRN - alcohol withdrawal symptoms * Thiamine, Folic acid, and MV PO daily * No fluids started due to ascites and BL LE swelling * Alcohol level - 343 * UDS - + opiates, cannabinoids * Psychiatry consulted- help appreciated - As needed meds and vitamins. Attend groups and activities. [place] for abstinence and CBT for relapse prevention. Support and psychoeducation. Consider and encourage MAT Cirrhosis * 2/2 Alcohol Abuse * CTA - hepatic steotosis * INR: 1.1, albumin 3.0, AST/ALT: 223/ 84 * Abdominal US - hepatic steotosis, no ascites noted * Performed bedside US, no fluid seen. Bilateral LE swelling * Venous dopplers ordered to rule out DVT - negative * Lasix 40mg IVP daily * Neurontin 100mg PO TID Transaminitis * CTA - Hepatic steatosis * AST/ALT: 223/ 84 * Hepatitis panel - negative HTN * Started on Vasotec 10mg PO daily * TSH, T4, HGBA1C - WNL * Clonidine 0.2mg PO BID * Lipid panel - WNL * F/U ECHO Electrolyte Imbalance * Potassium, magnesium, phosphorous - low * Repleted Prophylactic Measure * GI PPX: Pepcid 20mg PO daily * DVT PPX: Lovenox 40U SC daily, SCDs c/i due to BL LE swelling * Hepatic Diet * Peak Flow * Incentive spirometry Pending one more AFB* DW Dr. Enrique Strauss PGY-1 <Abimael Nunez - Last Filed: 07/19/17 10:16> Objective - Vital Signs/Intake and Output Vital Signs (last 24 hours): Temp Pulse Resp BP Pulse Ox 98 F 71 20 132/87 94 L 07/19/17 08:21 07/19/17 08:21 07/19/17 08:21 07/19/17 09:22 07/19/17 08:21 Intake and Output: 07/19/17 07/19/17 06:59 18:59 Intake Total 740 Balance 740 - Medications Medications: Current Medications Bacitracin (Bacitracin) 1 ea TOP TID [facility] Last Admin: 07/19/17 09:23 Dose: 1 ea Clonidine HCl (Catapres) 0.2 mg PO BID [facility] Last Admin: 07/19/17 09:22 Dose: 0.2 mg Docusate Sodium (Colace) 100 mg PO BID [facility] Last Admin: 07/19/17 09:21 Dose: 100 mg Enalapril Maleate (Vasotec) 10 mg PO DAILY [facility] Last Admin: 07/19/17 09:22 Dose: 10 mg Enoxaparin Sodium (Lovenox) 40 mg SC DAILY [facility] Last Admin: 07/19/17 09:21 Dose: 40 mg Escitalopram Oxalate (Lexapro) 10 mg PO DAILY [facility] Last Admin: 07/19/17 09:22 Dose: 10 mg Famotidine (Pepcid) 20 mg PO DAILY [facility] Last Admin: 07/19/17 09:21 Dose: 20 mg Folic Acid (Folic Acid) 1 mg PO DAILY [facility] Last Admin: 07/19/17 09:21 Dose: 1 mg Furosemide (Lasix) 40 mg IVP DAILY [facility] Last Admin: 07/19/17 09:22 Dose: 40 mg Gabapentin (Neurontin) 100 mg PO TID [facility] Last Admin: 07/19/17 09:21 Dose: 100 mg Vancomycin/Sodium Chloride (Vancocin) 1 gm in 200 mls @ 166.7 mls/hr IVPB Q24H [facility] Stop: 07/24/17 10:01 Last Admin: 07/19/17 09:20 Dose: 166.7 mls/hr Lorazepam (Ativan) 1 mg PO DAILY [facility] PRN Reason: Taper Stop: 07/19/17 17:59 Last Admin: 07/19/17 09:35 Dose: 1 mg Lorazepam (Ativan) 1 mg IVP Q6H PRN PRN Reason: Symptoms of alcohol withdrawl Morphine Sulfate (Morphine) 1 mg IVP Q4 PRN PRN Reason: Pain, severe (8-10) Last Admin: 07/19/17 09:17 Dose: 1 mg Multivitamins (Hexavitamin) 1 tab PO DAILY [facility] Last Admin: 07/19/17 09:21 Dose: 1 tab Nystatin (Mycostatin Cream) 1 ea TOP TID [facility] Last Admin: 07/19/17 09:24 Dose: 1 applic Ondansetron HCl (Zofran Inj) 4 mg IVP Q6H PRN PRN Reason: Nausea/Vomiting Thiamine HCl (Vitamin B1 Tab) 100 mg PO DAILY [facility] Last Admin: 07/19/17 09:21 Dose: 100 mg - Labs Labs: 07/19/17 07:38 07/19/17 07:38 PT 12.8 SECONDS (9.7-12.2) H 07/14/17 12:07 INR 1.1 07/14/17 12:07 APTT 34 SECONDS (21-34) 07/14/17 12:07 Attending/Attestation - Attestation I have personally seen and examined this patient.: Yes I have fully participated in the care of the patient.: Yes I have reviewed all pertinent clinical information, including history, physical exam and plan: Yes Notes (Text): 07/19/17 10:15 Patient was seen and examined at bedside with the resident Patient states that the shortness of breath is improving. Leg swelling is also improving Follow-up AFB smears 3 Follow-up recommendations of pulmonary I discussed the plan of care with the resident and agree with the assessment plan recommended.
--- NOTE | 2017-07-18 16:04 | CARD ---
APPROVED REPORT EKG Measurement Heart [id number] <Conclusion> Normal sinus rhythm Prolonged QT Abnormal ECG
--- NOTE | 2017-07-18 18:07 | CARD ---
APPROVED REPORT EXAM: Two-dimensional and M-mode echocardiogram with Doppler and color Doppler. Other Information Quality : FairRhythm : NSR Technically limited study due to body habitus. INDICATION Dyspnea Peripheral Edema RISK FACTORS Hypertension M-Mode DIMENSIONS RVDd2.13 (2.1-3.2cm)Left Atrium (MM)4.32 (2.5-4.0cm) IVSd0.82 (0.7-1.1cm)Aortic Root4.02 (2.2-3.7cm) LVDd5.93 (4.0-5.6cm)Aortic Cusp Exc.2.73 (1.5-2.0cm) PWd0.89 (0.7-1.1cm)FS (%) 36 % LVDs3.82 (2.0-3.8cm)LVEF (%)64 (>50%) Mitral Valve MV E Tsodqqxf65.2cm/sMV A Epzmyuay61.1cm/sE/A ratio0.6 TDI E/Lateral E'0.0E/Medial E'0.0 Tricuspid Valve TR Peak Wfradwtz682oh/sTR Peak Gr.[id number] LEFT VENTRICLE The left ventricle is normal size. There is mild concentric left ventricular hypertrophy. The left ventricular function is normal. The left ventricular ejection fraction is within the normal range. Left ventricle systolic function is normal. The Ejection Fraction is 55-60%. There is normal LV segmental wall motion. Transmitral Doppler flow pattern is Grade I-abnormal relaxation pattern. No left ventricle thrombus noted on this study. There is no ventricular septal defect visualized. RIGHT VENTRICLE The right ventricle is normal size. There is normal right ventricular wall thickness. The right ventricular systolic function is normal. ATRIA The left atrium is borderline dilated. The right atrium size is normal. The interatrial septum is intact with no evidence for an atrial septal defect. AORTIC VALVE The aortic valve is thickened but opens well. No aortic regurgitation is present. There is no aortic valvular stenosis. MITRAL VALVE The mitral valve is normal in structure. There is no evidence of mitral valve prolapse. There is no mitral valve stenosis. Mitral regurgitation is trace to mild. TRICUSPID VALVE The tricuspid valve is normal in structure. There is trace to mild tricuspid regurgitation. There is no tricuspid valve prolapse or vegetation. There is no tricuspid valve stenosis. PULMONIC VALVE The pulmonic valve is not well visualized. There is no pulmonic valvular regurgitation. There is no pulmonic valvular stenosis. GREAT VESSELS The aortic root is normal in size. The IVC was not visualized. PERICARDIAL EFFUSION There is no pericardial effusion. <Conclusion> The left ventricular function is normal. The left ventricular ejection fraction is within the normal range. Left ventricle systolic function is normal. The Ejection Fraction is 55-60%. Mitral regurgitation is trace to mild. There is trace to mild tricuspid regurgitation.
[2017-07-18] MEDS ORDERED: Vancomycin 1 gm/NS 200 ml 1 GM/200 ML BAG IVPB STA (21:51)
--- NOTE | 2017-07-19 00:48 | CP.PCM.PN ---
<Elen Sloan - Last Filed: 07/19/17 00:40> Subjective - Date & Time of Evaluation Date of Evaluation: 07/19/17 Time of Evaluation: 00:00 - Subjective Subjective: Medicine Note for Dr. Nunez Patient was seen and examined at bedside. Patient reported his right arm is swelling, tender to touch, and is painful. Denied any fever, chills, headache, chest pain, abdominal pain, n/v/d/c, or urinary symptoms. Objective - Vital Signs/Intake and Output Vital Signs (last 24 hours): Temp Pulse Resp BP Pulse Ox 98.2 F 88 20 145/81 95 07/18/17 15:42 07/18/17 19:46 07/18/17 15:42 07/18/17 19:46 07/18/17 15:42 Intake and Output: 07/18/17 07/19/17 18:59 06:59 Intake Total 500 Balance 500 - Medications Medications: Current Medications Bacitracin (Bacitracin) 1 ea TOP TID [facility] Last Admin: 07/18/17 19:45 Dose: 1 ea Clonidine HCl (Catapres) 0.2 mg PO BID [facility] Last Admin: 07/18/17 19:44 Dose: 0.2 mg Docusate Sodium (Colace) 100 mg PO BID [facility] Last Admin: 07/18/17 19:45 Dose: 100 mg Enalapril Maleate (Vasotec) 10 mg PO DAILY [facility] Last Admin: 07/18/17 11:42 Dose: 10 mg Enoxaparin Sodium (Lovenox) 40 mg SC DAILY [facility] Last Admin: 07/18/17 11:00 Dose: 40 mg Escitalopram Oxalate (Lexapro) 10 mg PO DAILY [facility] Last Admin: 07/18/17 11:00 Dose: 10 mg Famotidine (Pepcid) 20 mg PO DAILY [facility] Last Admin: 07/18/17 11:00 Dose: 20 mg Folic Acid (Folic Acid) 1 mg PO DAILY [facility] Last Admin: 07/18/17 11:00 Dose: 1 mg Furosemide (Lasix) 40 mg IVP DAILY [facility] Last Admin: 07/18/17 11:00 Dose: 40 mg Gabapentin (Neurontin) 100 mg PO TID [facility] Last Admin: 07/18/17 19:44 Dose: 100 mg Vancomycin/Sodium Chloride (Vancocin) 1 gm in 200 mls @ 166.7 mls/hr IVPB Q24H [facility] Stop: 07/24/17 10:01 Lorazepam (Ativan) 1 mg PO DAILY [facility] PRN Reason: Taper Stop: 07/19/17 17:59 Last Admin: 07/18/17 05:35 Dose: 1 mg Lorazepam (Ativan) 1 mg IVP Q6H PRN PRN Reason: Symptoms of alcohol withdrawl Morphine Sulfate (Morphine) 1 mg IVP Q4 PRN PRN Reason: Pain, severe (8-10) Last Admin: 07/18/17 20:52 Dose: 1 mg Multivitamins (Hexavitamin) 1 tab PO DAILY [facility] Last Admin: 07/18/17 11:00 Dose: 1 tab Nystatin (Mycostatin Cream) 1 ea TOP TID [facility] Last Admin: 07/18/17 18:00 Dose: 1 applic Ondansetron HCl (Zofran Inj) 4 mg IVP Q6H PRN PRN Reason: Nausea/Vomiting Thiamine HCl (Vitamin B1 Tab) 100 mg PO DAILY [facility] Last Admin: 07/18/17 11:00 Dose: 100 mg - Labs Labs: 07/18/17 07:28 07/18/17 07:28 PT 12.8 SECONDS (9.7-12.2) H 07/14/17 12:07 INR 1.1 07/14/17 12:07 APTT 34 SECONDS (21-34) 07/14/17 12:07 - Constitutional Appears: No Acute Distress - Head Exam Head Exam: NORMAL INSPECTION, NORMOCEPHALIC - Eye Exam Eye Exam: EOMI, Normal appearance, PERRL. absent: Nystagmus, Scleral icterus - ENT Exam ENT Exam: Mucous Membranes Moist - Respiratory Exam Respiratory Exam: Clear to Ausculation Bilateral, NORMAL BREATHING PATTERN. absent: Rales, Wheezes - Cardiovascular Exam Cardiovascular Exam: REGULAR RHYTHM, RRR, +S1, +S2 - GI/Abdominal Exam GI & Abdominal Exam: Distended, Soft, Normal Bowel Sounds. absent: Tenderness - Extremities Exam Extremities Exam: Pedal Edema Additional comments: reduction on swelling since day of admission. Now +1 BL right hand warm to touch, TTP, extends to wrist. Unable to extend digits. - Neurological Exam Neurological Exam: Alert, Awake, Oriented x3 - Psychiatric Exam Psychiatric exam: Normal Affect, Normal Mood - Skin Skin Exam: Dry, Intact, Normal Color, Warm Assessment and Plan - Assessment and Plan (Free Text) Plan: Right Hand Cellulitis * Patient reported falling 4 days prior, hurting his right wrist * Currently erythematous, edematous, TTP * Wrist Xray- No radiographic evidence of fracture * Started Vancomycin 1gram IVP daily 07/18/17 Blood Tinged Sputum * R/O TB * Last blood tinged sputum was 2 weeks ago * Contact Isolation: Airborne * AFB x3 Q8H - all 3 collected- pending results * F/U Quantiferon Dyspnea * Most likey 2/2 ascites * BNP: 253 * D-Dimer = 340 * CTA - negative for PE, no ascites noted * CXR: Mild pleural-based scarring and tenting right hemidiaphragm. ACDF plate seen overlying the lower cervical spine. Mild moderate multilevel degenerative spondylosis of the thoracic spine * EKG NSR @ 77 BPM with prolonged QT - 446 * Persistent SOB * Pulmonary consulted- Dr. Goldstein - help appreciated Hx of Alcohol Abuse * [facility] Protocol * Ativan Taper 07/19/17 1mg PO daily, then completed Ativan Taper * Ativan 1mg IVP Q6H PRN - alcohol withdrawal symptoms * Thiamine, Folic acid, and MV PO daily * No fluids started due to ascites and BL LE swelling * Alcohol level - 343 * UDS - + opiates, cannabinoids * Psychiatry consulted- help appreciated - As needed meds and vitamins. Attend groups and activities. [place] for abstinence and CBT for relapse prevention. Support and psychoeducation. Consider and encourage MAT Cirrhosis * 2/2 Alcohol Abuse * CTA - hepatic steotosis * INR: 1.1, albumin 3.0, AST/ALT: 223/ 84 * Abdominal US - hepatic steotosis, no ascites noted * Performed bedside US, no fluid seen. Bilateral LE swelling * Venous dopplers ordered to rule out DVT - negative * Lasix 40mg IVP daily * Neurontin 100mg PO TID Transaminitis * CTA - Hepatic steatosis * AST/ALT: 223/ 84 * Hepatitis panel - negative HTN * Started on Vasotec 10mg PO daily * TSH, T4, HGBA1C - WNL * Clonidine 0.2mg PO BID * Lipid panel - WNL * ECHO- LVEF: 55-60%, Mild MR, mild TR Electrolyte Imbalance * Potassium, magnesium, phosphorous - low * Repleted Prophylactic Measure * GI PPX: Pepcid 20mg PO daily * DVT PPX: Lovenox 40U SC daily, SCDs c/i due to BL LE swelling * Hepatic Diet * Peak Flow * Incentive spirometry DW Nathalia Mercer DO, PGY-1 <Abimael Nunez - Last Filed: 07/19/17 16:03> Objective - Vital Signs/Intake and Output Vital Signs (last 24 hours): Temp Pulse Resp BP Pulse Ox 98 F 71 20 132/87 94 L 07/19/17 08:21 07/19/17 08:21 07/19/17 08:21 07/19/17 09:22 07/19/17 08:21 Intake and Output: 07/19/17 07/19/17 06:59 18:59 Intake Total 740 Balance 740 - Medications Medications: Current Medications Bacitracin (Bacitracin) 1 ea TOP TID [facility] Last Admin: 07/19/17 13:43 Dose: 1 ea Clonidine HCl (Catapres) 0.2 mg PO BID [facility] Last Admin: 07/19/17 09:22 Dose: 0.2 mg Docusate Sodium (Colace) 100 mg PO BID [facility] Last Admin: 07/19/17 09:21 Dose: 100 mg Enalapril Maleate (Vasotec) 10 mg PO DAILY [facility] Last Admin: 07/19/17 09:22 Dose: 10 mg Enoxaparin Sodium (Lovenox) 40 mg SC DAILY [facility] Last Admin: 07/19/17 09:21 Dose: 40 mg Escitalopram Oxalate (Lexapro) 10 mg PO DAILY [facility] Last Admin: 07/19/17 09:22 Dose: 10 mg Famotidine (Pepcid) 20 mg PO DAILY [facility] Last Admin: 07/19/17 09:21 Dose: 20 mg Folic Acid (Folic Acid) 1 mg PO DAILY [facility] Last Admin: 07/19/17 09:21 Dose: 1 mg Furosemide (Lasix) 40 mg IVP DAILY [facility] Last Admin: 07/19/17 09:22 Dose: 40 mg Gabapentin (Neurontin) 100 mg PO TID [facility] Last Admin: 07/19/17 13:42 Dose: 100 mg Vancomycin/Sodium Chloride (Vancocin) 1 gm in 200 mls @ 166.7 mls/hr IVPB Q24H [facility] Stop: 07/24/17 10:01 Last Admin: 07/19/17 09:20 Dose: 166.7 mls/hr Lorazepam (Ativan) 1 mg PO DAILY [facility] PRN Reason: Taper Stop: 07/19/17 17:59 Last Admin: 07/19/17 09:35 Dose: 1 mg Lorazepam (Ativan) 1 mg IVP Q6H PRN PRN Reason: Symptoms of alcohol withdrawl Morphine Sulfate (Morphine) 2 mg IVP Q4 PRN PRN Reason: Pain, severe (8-10) Last Admin: 07/19/17 13:42 Dose: 2 mg Multivitamins (Hexavitamin) 1 tab PO DAILY [facility] Last Admin: 07/19/17 09:21 Dose: 1 tab Nystatin (Mycostatin Cream) 1 ea TOP TID [facility] Last Admin: 07/19/17 13:44 Dose: 1 applic Ondansetron HCl (Zofran Inj) 4 mg IVP Q6H PRN PRN Reason: Nausea/Vomiting Thiamine HCl (Vitamin B1 Tab) 100 mg PO DAILY [facility] Last Admin: 07/19/17 09:21 Dose: 100 mg - Labs Labs: 07/19/17 07:38 07/19/17 07:38 PT 12.8 SECONDS (9.7-12.2) H 07/14/17 12:07 INR 1.1 07/14/17 12:07 APTT 34 SECONDS (21-34) 07/14/17 12:07 Attending/Attestation - Attestation I have personally seen and examined this patient.: Yes I have fully participated in the care of the patient.: Yes I have reviewed all pertinent clinical information, including history, physical exam and plan: Yes Notes (Text): 07/19/17 16:02 Patient was seen and examined at bedside. Patient complains of severe pain in the right wrist and forearm X-ray of the wrist report reviewed. No fracture. ? Possible gout attack. We will start colchicine and steroids. Will also administer 1 dose of Motrin for now. We will also obtain a CT scan of the wrist to rule out any fracture even though the x-ray is negative. I discussed the plan of care with the resident and agree with the assessment and plan documented above.
[2017-07-19 07:48] LABS: BASO # 0.1 K/uL (0.0-0.2); BASO % 0.6 % (0.0-2.0); EOS # 0.1 K/uL (0.0-0.7); EOS % 0.6 % (0.0-4.0); HEMATOCRIT 38.4 % (35.0-51.0); LYMPH # 1.1 K/uL (1.0-4.3); MEAN CELL VOLUME 114.6 fL (80.0-94.0); MEAN CORPUSCULAR HEMOGLOBIN 39.2 pg (27.0-31.0); MEAN CORPUSCULAR HGB CONC 34.2 g/dL (33.0-37.0); MEAN PLATELET VOLUME 10.2 fL (7.2-11.7); MONO % 11.4 % (0.0-10.0); RED CELL DISTRIBUTION WIDTH 14.6 % (11.5-14.5); WHITE BLOOD COUNT 8.7 K/uL (4.8-10.8)
[2017-07-19 08:16] LABS: CHLORIDE 97 mmol/L (98-107); POTASSIUM 4.3 mmol/L (3.6-5.2); SODIUM 132 mmol/L (132-148)
[2017-07-19 08:18] LABS: ALB/GLOB RATIO 0.8 (1.0-2.1); ALKALINE PHOSPHATASE 168 U/L (38-126); AST/SGOT 171 U/L (17-59); CARBON DIOXIDE 25 mmol/L (22-30); GFR AFRICAN-AMERICAN > 60; TOTAL PROTEIN 7.1 g/dL (6.3-8.3)
[2017-07-19 08:19] LABS: ALT/SGPT 66 U/L (21-72); BLOOD UREA NITROGEN 11 mg/dL (9-20); CALCIUM 8.7 mg/dl (8.6-10.4); GLUCOSE,RANDOM 91 mg/dL (75-110); MAGNESIUM 1.7 mg/dL (1.6-2.3); PHOSPHOROUS 3.6 mg/dL (2.5-4.5)
[2017-07-19] MEDS: Vancomycin 1 gm/NS 200 ml 1 GM/200 ML BAG IVPB SCH (09:20)
[2017-07-19] MEDS: Enoxaparin 40 mg Syringe SC SCH (09:21)
[2017-07-19] MEDS: Multiple Vitamins Tab PO SCH (09:21)
[2017-07-19] MEDS: Bacitracin 500 Units/gm Oint Foilpak UD TOP SCH ×3 (09:23→17:34)
[2017-07-19] MEDS: Nystatin 100,000 Units/gm Cream(15 gm) TOP SCH ×3 (09:24→17:35)
--- NOTE | 2017-07-19 18:58 | CT ---
EXAM: CT Right Upper Extremity Without Intravenous Contrast, Forearm EXAM DATE/TIME: Exam ordered 07/19/2017 11:40 AM CLINICAL HISTORY: 56 years old, male; Pain; Lower or forearm; Bilateral; Additional info: Wrist pain TECHNIQUE: Axial computed tomography images of the right forearm without intravenous contrast. All CT scans at this facility use one or more dose reduction techniques, viz.: automated exposure control; ma/kV adjustment per patient size (including targeted exams where dose is matched to indication; i.e. head); or iterative reconstruction technique. Coronal and sagittal reformatted images were created and reviewed. COMPARISON: No relevant prior studies available. FINDINGS: Bones/joints: Degenerative changes are noted of the radius at the level of the radiocarpal joint . There is no fracture. A small bone island is noted within the hamate. No dislocation. Soft tissues: Unremarkable. IMPRESSION: Mild degenerative changes of the radiocarpal joint. No fracture..
--- NOTE | 2017-07-19 21:30 | CT ---
EXAM: CT Right Upper Extremity Without Intravenous Contrast, Wrist EXAM DATE/TIME: Exam ordered 07/19/2017 8:45 PM CLINICAL HISTORY: 56 years old, male; Pain; Wrist; Right; Additional info: Right wrist TECHNIQUE: Axial computed tomography images of the right wrist without intravenous contrast. All CT scans at this facility use one or more dose reduction techniques, viz.: automated exposure control; ma/kV adjustment per patient size (including targeted exams where dose is matched to indication; i.e. head); or iterative reconstruction technique. Coronal and sagittal reformatted images were created and reviewed. COMPARISON: CT - EXT UPPER W/O CONTRAST RIGHT 07/19/2017 5:10:54 PM FINDINGS: Bones/joints: Mild irregularity is noted of the articular surface of the distal radius at the level of the radiocarpal joint indicating mild osteoarthritis. There is mild ulnar plus variance. No acute fracture. No dislocation. Soft tissues: Unremarkable. IMPRESSION: 1. No acute findings. 2. Mild degenerative changes of the radiocarpal joint.
--- NOTE | 2017-07-20 01:23 | CP.PCM.PN ---
<Ekta Sloana - Last Filed: 07/20/17 01:18> Subjective - Date & Time of Evaluation Date of Evaluation: 07/20/17 Time of Evaluation: 01:00 - Subjective Subjective: Medicine Note for Dr. Nunez Patient was seen and examined at bedside. Patient reported his right arm is swelling, tender to touch, pain is less severe. Denied any fever, chills, headache, chest pain, abdominal pain, n/v/d/c, or urinary symptoms. Objective - Vital Signs/Intake and Output Vital Signs (last 24 hours): Temp Pulse Resp BP Pulse Ox 97.6 F 64 20 132/89 95 07/19/17 23:40 07/19/17 23:40 07/19/17 23:40 07/19/17 23:40 07/19/17 23:40 Intake and Output: 07/19/17 07/20/17 18:59 06:59 Intake Total 1350 420 Balance 1350 420 - Medications Medications: Current Medications Bacitracin (Bacitracin) 1 ea TOP TID [facility] Last Admin: 07/19/17 17:34 Dose: 1 ea Clonidine HCl (Catapres) 0.2 mg PO BID [facility] Last Admin: 07/19/17 17:34 Dose: 0.2 mg Docusate Sodium (Colace) 100 mg PO BID [facility] Last Admin: 07/19/17 17:34 Dose: 100 mg Enalapril Maleate (Vasotec) 10 mg PO DAILY [facility] Last Admin: 07/19/17 09:22 Dose: 10 mg Enoxaparin Sodium (Lovenox) 40 mg SC DAILY [facility] Last Admin: 07/19/17 09:21 Dose: 40 mg Escitalopram Oxalate (Lexapro) 10 mg PO DAILY [facility] Last Admin: 07/19/17 09:22 Dose: 10 mg Famotidine (Pepcid) 20 mg PO DAILY [facility] Last Admin: 07/19/17 09:21 Dose: 20 mg Folic Acid (Folic Acid) 1 mg PO DAILY [facility] Last Admin: 07/19/17 09:21 Dose: 1 mg Furosemide (Lasix) 40 mg IVP DAILY [facility] Last Admin: 07/19/17 09:22 Dose: 40 mg Gabapentin (Neurontin) 100 mg PO TID [facility] Last Admin: 07/19/17 17:34 Dose: 100 mg Vancomycin/Sodium Chloride (Vancocin) 1 gm in 200 mls @ 166.7 mls/hr IVPB Q24H [facility] Stop: 07/24/17 10:01 Last Admin: 07/19/17 09:20 Dose: 166.7 mls/hr Lorazepam (Ativan) 1 mg IVP Q6H PRN PRN Reason: Symptoms of alcohol withdrawl Morphine Sulfate (Morphine) 2 mg IVP Q4 PRN PRN Reason: Pain, severe (8-10) Last Admin: 07/19/17 23:48 Dose: 2 mg Multivitamins (Hexavitamin) 1 tab PO DAILY [facility] Last Admin: 07/19/17 09:21 Dose: 1 tab Nystatin (Mycostatin Cream) 1 ea TOP TID [facility] Last Admin: 07/19/17 17:35 Dose: 1 applic Ondansetron HCl (Zofran Inj) 4 mg IVP Q6H PRN PRN Reason: Nausea/Vomiting Thiamine HCl (Vitamin B1 Tab) 100 mg PO DAILY [facility] Last Admin: 07/19/17 09:21 Dose: 100 mg - Labs Labs: 07/19/17 07:38 07/19/17 07:38 PT 12.8 SECONDS (9.7-12.2) H 07/14/17 12:07 INR 1.1 07/14/17 12:07 APTT 34 SECONDS (21-34) 07/14/17 12:07 - Constitutional Appears: No Acute Distress - Head Exam Head Exam: NORMAL INSPECTION, NORMOCEPHALIC - Eye Exam Eye Exam: EOMI, Normal appearance, PERRL Pupil Exam: NORMAL ACCOMODATION - ENT Exam ENT Exam: Mucous Membranes Moist - Respiratory Exam Respiratory Exam: Clear to Ausculation Bilateral, NORMAL BREATHING PATTERN. absent: Decreased Breath Sounds, Wheezes - Cardiovascular Exam Cardiovascular Exam: REGULAR RHYTHM, RRR - GI/Abdominal Exam GI & Abdominal Exam: Soft, Normal Bowel Sounds. absent: Distended, Tenderness - Extremities Exam Extremities Exam: Pedal Edema Additional comments: reduction on swelling since day of admission. Now +1 BL right hand warm to touch, TTP, extends to wrist. Unable to extend digits. - Neurological Exam Neurological Exam: Alert, Awake, Oriented x3 - Psychiatric Exam Psychiatric exam: Normal Affect, Normal Mood - Skin Skin Exam: Dry, Intact, Normal Color, Warm Assessment and Plan - Assessment and Plan (Free Text) Plan: Right Hand Cellulitis * Patient reported falling 4 days prior, hurting his right wrist * Currently erythematous, edematous, TTP * Wrist Xray- No radiographic evidence of fracture * Started Vancomycin 1gram IVP daily 07/18/17 * CT hand and forearm: Mild degenerative changes of the radiocarpal joint. No fracture. 1. No acute findings. Mild degenerative changes of the radiocarpal joint. Possible Gout? Colchicine, Motrin, solumedrol x1 doses given Blood Tinged Sputum * R/O TB * Last blood tinged sputum was 2 weeks ago * Contact Isolation: Airborne * Quantiferon -indeterminate * AFB x3 Q8H - all 3 collected- pending results, 1st AFB- negative Dyspnea * Most likey 2/2 ascites * BNP: 253 * D-Dimer = 340 * CTA - negative for PE, no ascites noted * CXR: Mild pleural-based scarring and tenting right hemidiaphragm. ACDF plate seen overlying the lower cervical spine. Mild moderate multilevel degenerative spondylosis of the thoracic spine * EKG NSR @ 77 BPM with prolonged QT - 446 * Persistent SOB * Pulmonary consulted- Dr. Goldstein - help appreciated Hx of Alcohol Abuse * [facility] Protocol * Ativan Taper 07/19/17 1mg PO daily, then completed Ativan Taper * Ativan 1mg IVP Q6H PRN - alcohol withdrawal symptoms * Thiamine, Folic acid, and MV PO daily * No fluids started due to ascites and BL LE swelling * Alcohol level - 343 * UDS - + opiates, cannabinoids * Psychiatry consulted- help appreciated - As needed meds and vitamins. Attend groups and activities. [place] for abstinence and CBT for relapse prevention. Support and psychoeducation. Consider and encourage MAT Cirrhosis * 2/2 Alcohol Abuse * CTA - hepatic steotosis * INR: 1.1, albumin 3.0, AST/ALT: 223/ 84 * Abdominal US - hepatic steotosis, no ascites noted * Performed bedside US, no fluid seen. Bilateral LE swelling * Venous dopplers ordered to rule out DVT - negative * Lasix 40mg IVP daily * Neurontin 100mg PO TID Transaminitis * CTA - Hepatic steatosis * AST/ALT: 223/ 84 * Hepatitis panel - negative HTN * Started on Vasotec 10mg PO daily * TSH, T4, HGBA1C - WNL * Clonidine 0.2mg PO BID * Lipid panel - WNL * ECHO- LVEF: 55-60%, Mild MR, mild TR Electrolyte Imbalance * Potassium, magnesium, phosphorous - low * Repleted Prophylactic Measure * GI PPX: Pepcid 20mg PO daily * DVT PPX: Lovenox 40U SC daily, SCDs c/i due to BL LE swelling * Hepatic Diet * Peak Flow * Incentive spirometry DW Nathalia Mercer DO, PGY-1 <Abimael Nunez M - Last Filed: 07/20/17 15:23> Objective - Vital Signs/Intake and Output Vital Signs (last 24 hours): Temp Pulse Resp BP Pulse Ox 98.0 F 67 20 132/82 95 07/20/17 08:00 07/20/17 08:00 07/20/17 08:00 07/20/17 09:43 07/20/17 08:00 Intake and Output: 07/20/17 07/20/17 06:59 18:59 Intake Total 540 Balance 540 - Medications Medications: Current Medications Bacitracin (Bacitracin) 1 ea TOP TID [facility] Last Admin: 07/20/17 13:40 Dose: 1 ea Clonidine HCl (Catapres) 0.2 mg PO BID [facility] Last Admin: 07/20/17 09:43 Dose: 0.2 mg Colchicine (Colocrys) 0.6 mg PO DAILY [facility] Last Admin: 07/20/17 09:44 Dose: 0.6 mg Docusate Sodium (Colace) 100 mg PO BID [facility] Last Admin: 07/20/17 09:42 Dose: 100 mg Enalapril Maleate (Vasotec) 10 mg PO DAILY [facility] Last Admin: 07/20/17 09:43 Dose: 10 mg Enoxaparin Sodium (Lovenox) 40 mg SC DAILY [facility] Last Admin: 07/20/17 09:44 Dose: 40 mg Escitalopram Oxalate (Lexapro) 10 mg PO DAILY [facility] Last Admin: 07/20/17 09:42 Dose: 10 mg Famotidine (Pepcid) 20 mg PO DAILY [facility] Last Admin: 07/20/17 09:42 Dose: 20 mg Folic Acid (Folic Acid) 1 mg PO DAILY [facility] Last Admin: 07/20/17 09:42 Dose: 1 mg Furosemide (Lasix) 40 mg IVP DAILY [facility] Last Admin: 07/20/17 09:36 Dose: 40 mg Gabapentin (Neurontin) 100 mg PO TID [facility] Last Admin: 07/20/17 13:39 Dose: 100 mg Vancomycin/Sodium Chloride (Vancocin) 1 gm in 200 mls @ 166.7 mls/hr IVPB Q24H [facility] Stop: 07/24/17 10:01 Last Admin: 07/20/17 09:38 Dose: 166.7 mls/hr Lorazepam (Ativan) 1 mg IVP Q6H PRN PRN Reason: Symptoms of alcohol withdrawl Morphine Sulfate (Morphine) 2 mg IVP Q4 PRN PRN Reason: Pain, severe (8-10) Last Admin: 07/20/17 13:41 Dose: 2 mg Multivitamins (Hexavitamin) 1 tab PO DAILY [facility] Last Admin: 07/20/17 09:43 Dose: 1 tab Nystatin (Mycostatin Cream) 1 ea TOP TID [facility] Last Admin: 07/20/17 13:41 Dose: 1 applic Ondansetron HCl (Zofran Inj) 4 mg IVP Q6H PRN PRN Reason: Nausea/Vomiting Prednisone (Prednisone Tab) 40 mg PO DAILY [facility] Stop: 07/22/17 23:59 Last Admin: 07/20/17 09:43 Dose: 40 mg Thiamine HCl (Vitamin B1 Tab) 100 mg PO DAILY [facility] Last Admin: 07/20/17 09:43 Dose: 100 mg - Labs Labs: 07/20/17 08:32 07/20/17 08:32 PT 12.8 SECONDS (9.7-12.2) H 07/14/17 12:07 INR 1.1 07/14/17 12:07 APTT 34 SECONDS (21-34) 07/14/17 12:07 Attending/Attestation - Attestation I have personally seen and examined this patient.: Yes I have fully participated in the care of the patient.: Yes I have reviewed all pertinent clinical information, including history, physical exam and plan: Yes Notes (Text): 07/20/17 15:22 Patient was seen and examined at bedside States that the right breast pain is improved feeding. Patient is able to move his wrist A little more freely today CT scan of the right forearm and wrist report reviewed. No fracture and no inflammation noted We will continue treatment with prednisone and colchicine for possible gout. Patient remains on respiratory isolation. Follow-up AFB smears. I discussed the plan of care with the resident and agree with the assessment and plan documented.
[2017-07-20 09:00] LABS: BASO # 0.1 K/uL (0.0-0.2); BASO % 0.7 % (0.0-2.0); EOS % 0.4 % (0.0-4.0); HEMATOCRIT 39.6 % (35.0-51.0); LYMPH # 1.5 K/uL (1.0-4.3); LYMPH % 13.1 % (20.0-40.0); MEAN CORPUSCULAR HEMOGLOBIN 38.9 pg (27.0-31.0); MEAN CORPUSCULAR HGB CONC 33.8 g/dL (33.0-37.0); MONO # 1.1 K/uL (0.0-0.8); MONO % 10.2 % (0.0-10.0); RED CELL DISTRIBUTION WIDTH 14.5 % (11.5-14.5); WHITE BLOOD COUNT 11.2 K/uL (4.8-10.8)
[2017-07-20 09:22] LABS: CHLORIDE 98 mmol/L (98-107); POTASSIUM 4.3 mmol/L (3.6-5.2); SODIUM 134 mmol/L (132-148)
[2017-07-20 09:24] LABS: BILIRUBIN,TOTAL 1.2 mg/dL (0.2-1.3); CARBON DIOXIDE 28 mmol/L (22-30); GFR AFRICAN-AMERICAN > 60
[2017-07-20 09:25] LABS: ALB/GLOB RATIO 0.8 (1.0-2.1); ALKALINE PHOSPHATASE 169 U/L (38-126); ALT/SGPT 65 U/L (21-72); AST/SGOT 135 U/L (17-59); BLOOD UREA NITROGEN 16 mg/dL (9-20); CALCIUM 9.2 mg/dl (8.6-10.4); GLUCOSE,RANDOM 107 mg/dL (75-110); TOTAL PROTEIN 7.4 g/dL (6.3-8.3)
[2017-07-20] MEDS: Vancomycin 1 gm/NS 200 ml 1 GM/200 ML BAG IVPB SCH (09:38)
[2017-07-20] MEDS: Multiple Vitamins Tab PO SCH (09:43)
[2017-07-20] MEDS: Bacitracin 500 Units/gm Oint Foilpak UD TOP SCH ×3 (09:44→18:21)
[2017-07-20] MEDS: Enoxaparin 40 mg Syringe SC SCH (09:44)
[2017-07-20] MEDS: Nystatin 100,000 Units/gm Cream(15 gm) TOP SCH ×3 (09:45→18:22)
[2017-07-21 09:18] VITALS: RESP 20
[2017-07-21] MEDS: Multiple Vitamins Tab PO SCH (09:56)
[2017-07-21] MEDS: Bacitracin 500 Units/gm Oint Foilpak UD TOP SCH ×3 (09:57→17:28)
[2017-07-21] MEDS: Enoxaparin 40 mg Syringe SC SCH (09:57)
[2017-07-21] MEDS: Nystatin 100,000 Units/gm Cream(15 gm) TOP SCH ×3 (09:58→17:29)
[2017-07-21] MEDS: Vancomycin 1 gm/NS 200 ml 1 GM/200 ML BAG IVPB SCH (10:00)
[2017-07-21 11:08] LABS: BASO # 0.1 K/uL (0.0-0.2); BASO % 0.8 % (0.0-2.0); EOS # 0.2 K/uL (0.0-0.7); EOS % 1.9 % (0.0-4.0); HEMATOCRIT 39.9 % (35.0-51.0); LYMPH # 1.7 K/uL (1.0-4.3); LYMPH % 18.5 % (20.0-40.0); MEAN CELL VOLUME 114.7 fL (80.0-94.0); MEAN CORPUSCULAR HEMOGLOBIN 39.4 pg (27.0-31.0); MEAN CORPUSCULAR HGB CONC 34.3 g/dL (33.0-37.0); MONO % 11.2 % (0.0-10.0); NRBC % 0.1 % (0.0-2.0); RED CELL DISTRIBUTION WIDTH 14.7 % (11.5-14.5); WHITE BLOOD COUNT 8.9 K/uL (4.8-10.8)
[2017-07-21 11:22] LABS: CHLORIDE 98 mmol/L (98-107); POTASSIUM 3.7 mmol/L (3.6-5.2); SODIUM 135 mmol/L (132-148)
[2017-07-21 11:24] LABS: ALB/GLOB RATIO 0.8 (1.0-2.1); ALKALINE PHOSPHATASE 159 U/L (38-126); AST/SGOT 364 U/L (17-59); BILIRUBIN,TOTAL 1.1 mg/dL (0.2-1.3); CARBON DIOXIDE 23 mmol/L (22-30); GFR AFRICAN-AMERICAN > 60; TOTAL PROTEIN 7.4 g/dL (6.3-8.3)
[2017-07-21 11:25] LABS: ALT/SGPT 126 U/L (21-72); BLOOD UREA NITROGEN 23 mg/dL (9-20); CALCIUM 8.9 mg/dl (8.6-10.4); GLUCOSE,RANDOM 102 mg/dL (75-110)
--- NOTE | 2017-07-21 14:28 | CP.PCM.PN ---
<Elen Sloan - Last Filed: 07/21/17 14:22> Subjective - Date & Time of Evaluation Date of Evaluation: 07/21/17 Time of Evaluation: 07:00 - Subjective Subjective: Medicine Note for Dr. Cardenas Patient was seen and examined at bedside. Patient reported his right hand is better, still has some pain. Denied any fever, chills, headache, chest pain, abdominal pain, n/v/d/c, or urinary symptoms. Objective - Vital Signs/Intake and Output Vital Signs (last 24 hours): Temp Pulse Resp BP Pulse Ox 97.3 F L 62 20 130/90 97 07/21/17 09:17 07/21/17 09:17 07/21/17 09:17 07/21/17 09:56 07/21/17 09:17 - Medications Medications: Current Medications Bacitracin (Bacitracin) 1 ea TOP TID [facility] Last Admin: 07/21/17 09:57 Dose: 1 ea Clonidine HCl (Catapres) 0.2 mg PO BID [facility] Last Admin: 07/21/17 09:57 Dose: 0.2 mg Colchicine (Colocrys) 0.6 mg PO DAILY [facility] Last Admin: 07/21/17 09:57 Dose: 0.6 mg Docusate Sodium (Colace) 100 mg PO BID [facility] Last Admin: 07/21/17 09:56 Dose: 100 mg Enalapril Maleate (Vasotec) 10 mg PO DAILY [facility] Last Admin: 07/21/17 09:56 Dose: 10 mg Enoxaparin Sodium (Lovenox) 40 mg SC DAILY [facility] Last Admin: 07/21/17 09:57 Dose: 40 mg Escitalopram Oxalate (Lexapro) 10 mg PO DAILY [facility] Last Admin: 07/21/17 09:57 Dose: 10 mg Famotidine (Pepcid) 20 mg PO DAILY [facility] Last Admin: 07/21/17 09:56 Dose: 20 mg Folic Acid (Folic Acid) 1 mg PO DAILY [facility] Last Admin: 07/21/17 09:57 Dose: 1 mg Furosemide (Lasix) 40 mg IVP DAILY [facility] Last Admin: 07/21/17 09:55 Dose: 40 mg Gabapentin (Neurontin) 100 mg PO TID [facility] Last Admin: 07/21/17 13:19 Dose: 100 mg Vancomycin/Sodium Chloride (Vancocin) 1 gm in 200 mls @ 166.7 mls/hr IVPB Q24H [facility] Stop: 07/24/17 10:01 Last Admin: 07/21/17 10:00 Dose: 166.7 mls/hr Ketorolac Tromethamine (Toradol) 30 mg IVP Q8H PRN PRN Reason: Pain, moderate (4-7) Multivitamins (Hexavitamin) 1 tab PO DAILY [facility] Last Admin: 07/21/17 09:56 Dose: 1 tab Nystatin (Mycostatin Cream) 1 ea TOP TID [facility] Last Admin: 07/21/17 13:22 Dose: 1 applic Ondansetron HCl (Zofran Inj) 4 mg IVP Q6H PRN PRN Reason: Nausea/Vomiting Prednisone (Prednisone Tab) 40 mg PO DAILY [facility] Stop: 07/22/17 23:59 Last Admin: 07/21/17 09:56 Dose: 40 mg Thiamine HCl (Vitamin B1 Tab) 100 mg PO DAILY [facility] Last Admin: 07/21/17 09:57 Dose: 100 mg - Labs Labs: 07/21/17 10:57 07/21/17 10:57 PT 12.8 SECONDS (9.7-12.2) H 07/14/17 12:07 INR 1.1 07/14/17 12:07 APTT 34 SECONDS (21-34) 07/14/17 12:07 - Constitutional Appears: No Acute Distress - Head Exam Head Exam: NORMAL INSPECTION, NORMOCEPHALIC - Eye Exam Eye Exam: EOMI, Normal appearance, PERRL Pupil Exam: NORMAL ACCOMODATION - ENT Exam ENT Exam: Mucous Membranes Moist, Normal Exam - Respiratory Exam Respiratory Exam: Clear to Ausculation Bilateral, NORMAL BREATHING PATTERN - Cardiovascular Exam Cardiovascular Exam: REGULAR RHYTHM - GI/Abdominal Exam GI & Abdominal Exam: Soft, Normal Bowel Sounds. absent: Distended - Extremities Exam Extremities Exam: Normal Inspection. absent: Pedal Edema, Tenderness Additional comments: reduction on swelling since day of admission. minimal swelling +1 - Neurological Exam Neurological Exam: Alert, Awake, Oriented x3 - Psychiatric Exam Psychiatric exam: Normal Affect, Normal Mood - Skin Skin Exam: Dry, Intact, Normal Color, Warm Assessment and Plan - Assessment and Plan (Free Text) Plan: Right Hand Cellulitis * Patient reported falling 4 days prior, hurting his right wrist * Currently erythematous, edematous, TTP * Wrist Xray- No radiographic evidence of fracture * Started Vancomycin 1gram IVP daily 07/18/17 * CT hand and forearm: Mild degenerative changes of the radiocarpal joint. No fracture. 1. No acute findings. Mild degenerative changes of the radiocarpal joint. * Toradol PRN for pain Possible Gout? * Colchicine, Motrin, solumedrol x1 doses given * Started Colchicine 0.6mg PO daily Blood Tinged Sputum * R/O TB * Last blood tinged sputum was 2 weeks ago * Contact Isolation: Airborne * Quantiferon -indeterminate * AFB x3 Q8H - all 3 collected- pending results, 1st AFB- negative Dyspnea * Most likey 2/2 ascites * BNP: 253 * D-Dimer = 340 * CTA - negative for PE, no ascites noted * CXR: Mild pleural-based scarring and tenting right hemidiaphragm. ACDF plate seen overlying the lower cervical spine. Mild moderate multilevel degenerative spondylosis of the thoracic spine * EKG NSR @ 77 BPM with prolonged QT - 446 * Persistent SOB * Pulmonary consulted- Dr. Goldstein - help appreciated Hx of Alcohol Abuse * [facility] Protocol * Ativan Taper Completed * Ativan 1mg IVP Q6H PRN - alcohol withdrawal symptoms * Thiamine, Folic acid, and MV PO daily * No fluids started due to ascites and BL LE swelling * Alcohol level - 343 * UDS - + opiates, cannabinoids * Psychiatry consulted- help appreciated - As needed meds and vitamins. Attend groups and activities. [place] for abstinence and CBT for relapse prevention. Support and psychoeducation. Consider and encourage MAT * CTA - hepatic steotosis * INR: 1.1, albumin 3.0, AST/ALT: 223/ 84 * Abdominal US - hepatic steotosis, no ascites noted * Performed bedside US, no fluid seen. Bilateral LE swelling * Venous dopplers ordered to rule out DVT - negative * Lasix 40mg PO daily * Neurontin 100mg PO TID Transaminitis * CTA - Hepatic steatosis * AST/ALT: 223/ 84 * Hepatitis panel - negative HTN * Started on Vasotec 10mg PO daily * TSH, T4, HGBA1C - WNL * Clonidine 0.2mg PO BID * Lipid panel - WNL * ECHO- LVEF: 55-60%, Mild MR, mild TR Electrolyte Imbalance * Potassium, magnesium, phosphorous - low * Repleted Prophylactic Measure * GI PPX: Pepcid 20mg PO daily * DVT PPX: Lovenox 40U SC daily, SCDs c/i due to BL LE swelling * Hepatic Diet * Peak Flow * Incentive spirometry DW Dr. Cardenas, Nathalia FREGOSO, PGY-1 <Sahil Cardenas - Last Filed: 07/21/17 17:03> Objective - Vital Signs/Intake and Output Vital Signs (last 24 hours): Temp Pulse Resp BP Pulse Ox 98.7 F 75 20 131/90 100 07/21/17 15:51 07/21/17 15:51 07/21/17 15:51 07/21/17 15:51 07/21/17 15:51 Intake and Output: 07/21/17 07/21/17 06:59 18:59 Intake Total 400 Balance 400 - Medications Medications: Current Medications Bacitracin (Bacitracin) 1 ea TOP TID [facility] Last Admin: 07/21/17 14:28 Dose: 1 ea Clonidine HCl (Catapres) 0.2 mg PO BID [facility] Last Admin: 07/21/17 09:57 Dose: 0.2 mg Colchicine (Colocrys) 0.6 mg PO DAILY [facility] Last Admin: 07/21/17 09:57 Dose: 0.6 mg Docusate Sodium (Colace) 100 mg PO BID [facility] Last Admin: 07/21/17 09:56 Dose: 100 mg Enalapril Maleate (Vasotec) 10 mg PO DAILY [facility] Last Admin: 07/21/17 09:56 Dose: 10 mg Enoxaparin Sodium (Lovenox) 40 mg SC DAILY [facility] Last Admin: 07/21/17 09:57 Dose: 40 mg Escitalopram Oxalate (Lexapro) 10 mg PO DAILY [facility] Last Admin: 07/21/17 09:57 Dose: 10 mg Famotidine (Pepcid) 20 mg PO DAILY [facility] Last Admin: 07/21/17 09:56 Dose: 20 mg Folic Acid (Folic Acid) 1 mg PO DAILY [facility] Last Admin: 07/21/17 09:57 Dose: 1 mg Furosemide (Lasix) 40 mg PO DAILY [facility] Gabapentin (Neurontin) 100 mg PO TID [facility] Last Admin: 07/21/17 13:19 Dose: 100 mg Vancomycin/Sodium Chloride (Vancocin) 1 gm in 200 mls @ 166.7 mls/hr IVPB Q24H [facility] Stop: 07/24/17 10:01 Last Admin: 07/21/17 10:00 Dose: 166.7 mls/hr Ketorolac Tromethamine (Toradol) 30 mg IVP Q8H PRN PRN Reason: Pain, moderate (4-7) Multivitamins (Hexavitamin) 1 tab PO DAILY [facility] Last Admin: 07/21/17 09:56 Dose: 1 tab Nystatin (Mycostatin Cream) 1 ea TOP TID [facility] Last Admin: 07/21/17 13:22 Dose: 1 applic Ondansetron HCl (Zofran Inj) 4 mg IVP Q6H PRN PRN Reason: Nausea/Vomiting Prednisone (Prednisone Tab) 40 mg PO DAILY [facility] Stop: 07/22/17 23:59 Last Admin: 07/21/17 09:56 Dose: 40 mg Thiamine HCl (Vitamin B1 Tab) 100 mg PO DAILY [facility] Last Admin: 07/21/17 09:57 Dose: 100 mg - Labs Labs: 07/21/17 10:57 07/21/17 10:57 PT 12.8 SECONDS (9.7-12.2) H 07/14/17 12:07 INR 1.1 07/14/17 12:07 APTT 34 SECONDS (21-34) 07/14/17 12:07 Attending/Attestation - Attestation I have personally seen and examined this patient.: Yes I have fully participated in the care of the patient.: Yes I have reviewed all pertinent clinical information, including history, physical exam and plan: Yes Notes (Text): Medical attending: Patient was seen and examined by me, agrees the above note by biomedical equipment technician. This is my first time meeting the patient and I had to review some the previous old notes as well as discussed with the biomedical equipment technician and also with the patient As mentioned before the patient did have a history of very heavy alcohol use for a very extended period of time. At this moment he does not appear to be any acute withdrawal. Over the weekend he had some pain in his hand he was questionable if this was cellulitis versus acute gouty attack. Nevertheless he' s on both IV antibiotics as well as medication in case this is a gout attack - regardless his hand does feel better he says Furthermore in the very recent past he reported that he coughed up blood so because of this sputum AFBs were ordered the first one I understand is negative. Hopefully the next to return sooner we can discharge the patient. When I spoke with him today he now denies coughing up blood and states that his breathing is well. Thank you very much, Sahil Cardenas
--- NOTE | 2017-07-22 07:19 | CP.PCM.PN ---
<Elen Sloan - Last Filed: 07/22/17 13:01> Subjective - Date & Time of Evaluation Date of Evaluation: 07/22/17 Time of Evaluation: 07:00 - Subjective Subjective: Medicine Note for Dr. Cardenas Patient was seen and examined at bedside. No acute complaints. Denied any fever , chills, headache, chest pain, abdominal pain, n/v/d/c, or urinary symptoms. Objective - Vital Signs/Intake and Output Vital Signs (last 24 hours): Temp Pulse Resp BP Pulse Ox 98.1 F 53 L 20 111/74 96 07/21/17 23:35 07/21/17 23:35 07/21/17 23:35 07/21/17 23:35 07/21/17 23:35 - Medications Medications: Current Medications Bacitracin (Bacitracin) 1 ea TOP TID [facility] Last Admin: 07/21/17 17:28 Dose: Not Given Clonidine HCl (Catapres) 0.2 mg PO BID [facility] Last Admin: 07/21/17 17:28 Dose: 0.2 mg Colchicine (Colocrys) 0.6 mg PO DAILY [facility] Last Admin: 07/21/17 09:57 Dose: 0.6 mg Docusate Sodium (Colace) 100 mg PO BID [facility] Last Admin: 07/21/17 17:28 Dose: 100 mg Enalapril Maleate (Vasotec) 10 mg PO DAILY [facility] Last Admin: 07/21/17 09:56 Dose: 10 mg Enoxaparin Sodium (Lovenox) 40 mg SC DAILY [facility] Last Admin: 07/21/17 09:57 Dose: 40 mg Escitalopram Oxalate (Lexapro) 10 mg PO DAILY [facility] Last Admin: 07/21/17 09:57 Dose: 10 mg Famotidine (Pepcid) 20 mg PO DAILY [facility] Last Admin: 07/21/17 09:56 Dose: 20 mg Folic Acid (Folic Acid) 1 mg PO DAILY [facility] Last Admin: 07/21/17 09:57 Dose: 1 mg Furosemide (Lasix) 40 mg PO DAILY [facility] Gabapentin (Neurontin) 100 mg PO TID [facility] Last Admin: 07/21/17 17:28 Dose: 100 mg Vancomycin/Sodium Chloride (Vancocin) 1 gm in 200 mls @ 166.7 mls/hr IVPB Q24H [facility] Stop: 07/24/17 10:01 Last Admin: 07/21/17 10:00 Dose: 166.7 mls/hr Ketorolac Tromethamine (Toradol) 30 mg IVP Q8H PRN PRN Reason: Pain, moderate (4-7) Last Admin: 07/22/17 05:17 Dose: 30 mg Multivitamins (Hexavitamin) 1 tab PO DAILY [facility] Last Admin: 07/21/17 09:56 Dose: 1 tab Nystatin (Mycostatin Cream) 1 ea TOP TID [facility] Last Admin: 07/21/17 17:29 Dose: 1 applic Ondansetron HCl (Zofran Inj) 4 mg IVP Q6H PRN PRN Reason: Nausea/Vomiting Prednisone (Prednisone Tab) 40 mg PO DAILY [facility] Stop: 07/22/17 23:59 Last Admin: 07/21/17 09:56 Dose: 40 mg Thiamine HCl (Vitamin B1 Tab) 100 mg PO DAILY [facility] Last Admin: 07/21/17 09:57 Dose: 100 mg - Labs Labs: 07/21/17 10:57 07/21/17 10:57 PT 12.8 SECONDS (9.7-12.2) H 07/14/17 12:07 INR 1.1 07/14/17 12:07 APTT 34 SECONDS (21-34) 07/14/17 12:07 - Constitutional Appears: No Acute Distress - Head Exam Head Exam: NORMAL INSPECTION, NORMOCEPHALIC - Eye Exam Eye Exam: EOMI, Normal appearance, PERRL Pupil Exam: NORMAL ACCOMODATION - ENT Exam ENT Exam: Mucous Membranes Moist - Respiratory Exam Respiratory Exam: Clear to Ausculation Bilateral, NORMAL BREATHING PATTERN. absent: Decreased Breath Sounds, Wheezes - Cardiovascular Exam Cardiovascular Exam: REGULAR RHYTHM, RRR, +S1, +S2 - GI/Abdominal Exam GI & Abdominal Exam: Soft, Normal Bowel Sounds. absent: Distended, Tenderness - Extremities Exam Extremities Exam: Pedal Edema. absent: Tenderness Additional comments: reduction on swelling since day of admission. minimal swelling +1 - Neurological Exam Neurological Exam: Alert, Awake, Oriented x3 - Psychiatric Exam Psychiatric exam: Normal Affect, Normal Mood - Skin Skin Exam: Dry, Intact, Normal Color, Warm Assessment and Plan - Assessment and Plan (Free Text) Plan: Disposition- pending results of AFB x2, first AFB negative, once TB ruled out PATIENT WILL BE DISCHARGED HOME. Blood Tinged Sputum * R/O TB * Last blood tinged sputum was 2 weeks ago * Contact Isolation: Airborne * Quantiferon -indeterminate * AFB x3 Q8H - all 3 collected- pending results x2, 1st AFB- negative Right Hand Cellulitis * Patient reported falling 4 days prior, hurting his right wrist * Currently erythematous, edematous, TTP * Wrist Xray- No radiographic evidence of fracture * Started Vancomycin 1gram IVP daily 07/18/17 * CT hand and forearm: Mild degenerative changes of the radiocarpal joint. No fracture. 1. No acute findings. Mild degenerative changes of the radiocarpal joint. * Toradol PRN for pain Possible Gout? * Colchicine, Motrin, solumedrol x1 doses given * Started Colchicine 0.6mg PO daily Dyspnea * Most likey 2/2 ascites * BNP: 253 * D-Dimer = 340 * CTA - negative for PE, no ascites noted * CXR: Mild pleural-based scarring and tenting right hemidiaphragm. ACDF plate seen overlying the lower cervical spine. Mild moderate multilevel degenerative spondylosis of the thoracic spine * EKG NSR @ 77 BPM with prolonged QT - 446 * Persistent SOB * Pulmonary consulted- Dr. Goldstein - help appreciated Hx of Alcohol Abuse * [facility] Protocol * Ativan Taper Completed * Ativan 1mg IVP Q6H PRN - alcohol withdrawal symptoms * Thiamine, Folic acid, and MV PO daily * No fluids started due to ascites and BL LE swelling * Alcohol level - 343 * UDS - + opiates, cannabinoids * Psychiatry consulted- help appreciated - As needed meds and vitamins. Attend groups and activities. [place] for abstinence and CBT for relapse prevention. Support and psychoeducation. Consider and encourage MAT * CTA - hepatic steotosis * INR: 1.1, albumin 3.0, AST/ALT: 223/ 84 * Abdominal US - hepatic steotosis, no ascites noted * Performed bedside US, no fluid seen. Bilateral LE swelling * Venous dopplers ordered to rule out DVT - negative * Lasix 40mg PO daily * Neurontin 100mg PO TID Transaminitis * CTA - Hepatic steatosis * AST/ALT: 223/ 84 * Hepatitis panel - negative HTN * Started on Vasotec 10mg PO daily * TSH, T4, HGBA1C - WNL * Clonidine 0.2mg PO BID * Lipid panel - WNL * ECHO- LVEF: 55-60%, Mild MR, mild TR Electrolyte Imbalance * Potassium, magnesium, phosphorous - low * Repleted Prophylactic Measure * GI PPX: Pepcid 20mg PO daily * DVT PPX: Lovenox 40U SC daily, SCDs c/i due to BL LE swelling * Hepatic Diet * Peak Flow * Incentive spirometry DW Dr. Cardenas, Nathalia FREGOSO, PGY-1 <Sahil Cardenas H - Last Filed: 07/22/17 14:38> Objective - Vital Signs/Intake and Output Vital Signs (last 24 hours): Temp Pulse Resp BP Pulse Ox 97.8 F 71 20 114/78 97 07/22/17 07:49 07/22/17 10:47 07/22/17 07:49 07/22/17 10:49 07/22/17 07:49 - Medications Medications: Current Medications Bacitracin (Bacitracin) 1 ea TOP TID [facility] Last Admin: 07/22/17 13:23 Dose: 1 ea Clonidine HCl (Catapres) 0.2 mg PO BID [facility] Last Admin: 07/22/17 10:49 Dose: 0.2 mg Colchicine (Colocrys) 0.6 mg PO DAILY [facility] Last Admin: 07/22/17 10:49 Dose: 0.6 mg Docusate Sodium (Colace) 100 mg PO BID [facility] Last Admin: 07/22/17 10:49 Dose: 100 mg Enalapril Maleate (Vasotec) 10 mg PO DAILY [facility] Last Admin: 07/22/17 10:49 Dose: 10 mg Enoxaparin Sodium (Lovenox) 40 mg SC DAILY [facility] Last Admin: 07/22/17 10:48 Dose: 40 mg Escitalopram Oxalate (Lexapro) 10 mg PO DAILY [facility] Last Admin: 07/22/17 10:48 Dose: 10 mg Famotidine (Pepcid) 20 mg PO DAILY [facility] Last Admin: 07/22/17 10:49 Dose: 20 mg Folic Acid (Folic Acid) 1 mg PO DAILY [facility] Last Admin: 07/22/17 10:49 Dose: 1 mg Furosemide (Lasix) 40 mg PO DAILY [facility] Last Admin: 07/22/17 10:48 Dose: 40 mg Vancomycin/Sodium Chloride (Vancocin) 1 gm in 200 mls @ 166.7 mls/hr IVPB Q24H [facility] Stop: 07/24/17 10:01 Last Admin: 07/22/17 10:50 Dose: 166.7 mls/hr Ketorolac Tromethamine (Toradol) 30 mg IVP Q8H PRN PRN Reason: Pain, moderate (4-7) Last Admin: 07/22/17 13:22 Dose: 30 mg Multivitamins (Hexavitamin) 1 tab PO DAILY [facility] Last Admin: 07/22/17 10:48 Dose: 1 tab Nystatin (Mycostatin Cream) 1 ea TOP TID [facility] Last Admin: 07/22/17 13:23 Dose: 1 applic Ondansetron HCl (Zofran Inj) 4 mg IVP Q6H PRN PRN Reason: Nausea/Vomiting Prednisone (Prednisone Tab) 40 mg PO DAILY [facility] Stop: 07/22/17 23:59 Last Admin: 07/22/17 10:48 Dose: 40 mg Thiamine HCl (Vitamin B1 Tab) 100 mg PO DAILY [facility] Last Admin: 07/22/17 10:48 Dose: 100 mg - Labs Labs: 07/22/17 07:53 07/22/17 07:53 PT 12.8 SECONDS (9.7-12.2) H 07/14/17 12:07 INR 1.1 07/14/17 12:07 APTT 34 SECONDS (21-34) 07/14/17 12:07 Attending/Attestation - Attestation I have personally seen and examined this patient.: Yes I have fully participated in the care of the patient.: Yes I have reviewed all pertinent clinical information, including history, physical exam and plan: Yes Notes (Text): 07/22/17 14:37 Medical Attending: Patient was seen and examined by me. Agree with the above note by the resident. The patient was not in any acute distress when I saw him. He explained that he felt well. Denied coughing up blood. Reported eating and bathroom ok as well. One AFB is now negative. Pending two more. thank you Sahil Cardenas
[2017-07-22 08:07] LABS: BASO # 0.1 K/uL (0.0-0.2); BASO % 0.8 % (0.0-2.0); EOS # 0.1 K/uL (0.0-0.7); EOS % 1.3 % (0.0-4.0); HEMATOCRIT 41.6 % (35.0-51.0); LYMPH # 1.9 K/uL (1.0-4.3); LYMPH % 25.5 % (20.0-40.0); MEAN CELL VOLUME 114.6 fL (80.0-94.0); MEAN CORPUSCULAR HEMOGLOBIN 38.5 pg (27.0-31.0); MEAN CORPUSCULAR HGB CONC 33.6 g/dL (33.0-37.0); MEAN PLATELET VOLUME 9.4 fL (7.2-11.7); MONO % 13.1 % (0.0-10.0); RED CELL DISTRIBUTION WIDTH 14.4 % (11.5-14.5); WHITE BLOOD COUNT 7.3 K/uL (4.8-10.8)
[2017-07-22 08:17] LABS: POTASSIUM 3.7 mmol/L (3.6-5.2)
[2017-07-22 08:20] LABS: ALB/GLOB RATIO 0.8 (1.0-2.1); CALCIUM 9.2 mg/dl (8.6-10.4); TOTAL PROTEIN 7.3 g/dL (6.3-8.3)
[2017-07-22] MEDS: Multiple Vitamins Tab PO SCH (10:48)
[2017-07-22] MEDS: Bacitracin 500 Units/gm Oint Foilpak UD TOP SCH ×3 (10:48→18:00)
[2017-07-22] MEDS: Enoxaparin 40 mg Syringe SC SCH (10:48)
[2017-07-22] MEDS: Nystatin 100,000 Units/gm Cream(15 gm) TOP SCH ×3 (10:49→18:19)
[2017-07-22] MEDS: Vancomycin 1 gm/NS 200 ml 1 GM/200 ML BAG IVPB SCH (10:50)
[2017-07-23 00:53] VITALS: TEMP 97.9
[2017-07-23 07:53] LABS: BASO # 0.1 K/uL (0.0-0.2); BASO % 0.9 % (0.0-2.0); EOS # 0.1 K/uL (0.0-0.7); EOS % 1.6 % (0.0-4.0); HEMATOCRIT 40.3 % (35.0-51.0); LYMPH # 1.9 K/uL (1.0-4.3); LYMPH % 25.3 % (20.0-40.0); MEAN CORPUSCULAR HGB CONC 33.9 g/dL (33.0-37.0); MEAN PLATELET VOLUME 9.4 fL (7.2-11.7); MONO # 1.1 K/uL (0.0-0.8); MONO % 14.6 % (0.0-10.0); NRBC % 0.3 % (0.0-2.0); RED CELL DISTRIBUTION WIDTH 14.4 % (11.5-14.5); WHITE BLOOD COUNT 7.5 K/uL (4.8-10.8)
[2017-07-23 08:02] LABS: CHLORIDE 101 mmol/L (98-107); POTASSIUM 3.6 mmol/L (3.6-5.2); SODIUM 139 mmol/L (132-148)
[2017-07-23 08:04] LABS: ALB/GLOB RATIO 0.8 (1.0-2.1); ALKALINE PHOSPHATASE 157 U/L (38-126); AST/SGOT 308 U/L (17-59); CARBON DIOXIDE 25 mmol/L (22-30); GFR AFRICAN-AMERICAN > 60; TOTAL PROTEIN 7.1 g/dL (6.3-8.3)
[2017-07-23 08:05] LABS: ALT/SGPT 179 U/L (21-72); BLOOD UREA NITROGEN 32 mg/dL (9-20); CALCIUM 9.2 mg/dl (8.6-10.4); GLUCOSE,RANDOM 96 mg/dL (75-110)
[2017-07-23 08:38] VITALS: PULSE 58; O2SAT 95
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
[2017-07-23] MEDS: Enoxaparin 40 mg Syringe SC SCH (10:38)
[2017-07-23] MEDS: Multiple Vitamins Tab PO SCH (10:39)
[2017-07-23] MEDS: Bacitracin 500 Units/gm Oint Foilpak UD TOP SCH (10:40)
[2017-07-23 10:41] VITALS: BP 148/91
[2017-07-23] MEDS: Nystatin 100,000 Units/gm Cream(15 gm) TOP SCH (10:41)
[2017-07-23] MEDS: Vancomycin 1 gm/NS 200 ml 1 GM/200 ML BAG IVPB SCH (10:58)
== END 2017-07-23 13:43 | disposition home or self-care (01) | DRG 750 ==
LOC: C.ER 10:44 → C.9E 15:43 → C.5T 21:41
PROVIDERS: ADMIT Hospitalist; ATTEND Hospitalist
PROC: HZ2ZZZZ Detoxification Services for Substance Abuse Treatment (ICD-10-PCS; principal; 2017-07-15)
DX: F10.230 Alcohol dependence with withdrawal, uncomplicated (principal); E87.70 Fluid overload, unspecified; K70.30 Alcoholic cirrhosis of liver without ascites; L03.113 Cellulitis of right upper limb; I10 Essential (primary) hypertension; F10.280 Alcohol dependence with alcohol-induced anxiety disorder; F06.4 Anxiety disorder due to known physiological condition; F12.90 Cannabis use, unspecified, uncomplicated; F32.9 Major depressive disorder, single episode, unspecified; N64.4 Mastodynia; M10.9 Gout, unspecified

== ENCOUNTER 2017-12-08 07:44 | Day surgery (SDC) | payer OTHER ==
[2017-12-08 08:06] VITALS: BMI 33.5
[2017-12-08] MEDS ORDERED: Lactated Ringer's 1,000 ML IV ONE (10:05)
[2017-12-08] MEDS ORDERED: Propofol 10 mg/ml Inj (20 ML) ONE ×5 (10:09→10:45)
[2017-12-08] MEDS ORDERED: Lidocaine Hydrochloride 5 ML INJ ONE (10:36)
[2017-12-08 11:06] VITALS: TEMP 99.2
[2017-12-08] MEDS ORDERED: Lactated Ringer's 500 ML IV ONE (11:25)
[2017-12-08 11:48] VITALS: BP 132/84; PULSE 79; RESP 13; O2SAT 96
== END 2017-12-08 12:05 | disposition home or self-care (01) ==
LOC: C.ENDO 07:44
PROVIDERS: ATTEND Internal Medicine Gastroenterology
DX: K29.50 Unspecified chronic gastritis without bleeding (principal); D12.2 Benign neoplasm of ascending colon; D12.0 Benign neoplasm of cecum; D12.3 Benign neoplasm of transverse colon
CPT/HCPCS: 43239; 45388; 88305; 88312; 88313; 88342; J2704; J7120

== ENCOUNTER 2017-12-31 07:58 | Emergency (ER) | payer OTHER ==
[2017-12-31 07:58] VITALS: BMI 33.5
--- NOTE | 2017-12-31 08:51 | C.PDOC ---
History Of Present Illness 57-year-old male, PMHx includes Diabetes, liver failure, and EtOH abuse (last drink last night), presents to the emergency department with complaints of one week duration of persistent knee pain. Denies any trauma, nausea/vomiting, fevers or chills. No other complaints at this time. Time Seen by Provider: 12/31/17 08:04 Chief Complaint (Nursing): Lower Extremity Problem/Injury History Per: Patient History/Exam Limitations: no limitations Onset/Duration Of Symptoms: Days Current Symptoms Are (Timing): Still Present Severity: None Recent travel outside of the [place]: No Past Medical History Reviewed: Historical Data, Nursing Documentation, Vital Signs Vital Signs: Last Vital Signs Temp 98.5 F 12/31/17 12:18 Pulse 66 12/31/17 12:18 Resp 18 12/31/17 12:18 BP 133/88 12/31/17 12:18 Pulse Ox 97 12/31/17 12:18 - Medical History PMH: HTN Other PMH: liver disease - [facility] Procedures DETOXIFICATION SERVICES FOR SUBSTANCE ABUSE TREATMENT (07/14/17) Family History: States: No Known Family Hx - Social History Hx Alcohol Use: Yes (Hard liquior 0.5-1L daily (rum/vodka/whiskey)) Hx Substance Use: Yes (Maijuana 1-3 per week/ETOH ABUSE) - Immunization History Hx Tetanus Toxoid Vaccination: No Hx Influenza Vaccination: No Hx Pneumococcal Vaccination: No Review Of Systems Constitutional: Negative for: Fever Cardiovascular: Negative for: Chest Pain Respiratory: Negative for: Shortness of Breath Gastrointestinal: Negative for: Vomiting Musculoskeletal: Positive for: Other (knee pain) Neurological: Negative for: Weakness, Numbness, Headache, Dizziness Physical Exam - Physical Exam Appears: Non-toxic, No Acute Distress Skin: Warm, Dry, No Rash Head: Atraumatic, Normacephalic Nose: Normal Oral Mucosa: Moist Lips: Normal Appearing Neck: Normal ROM Chest: Symmetrical Cardiovascular: Rhythm Regular, No Murmur Respiratory: Normal Breath Sounds, No Accessory Muscle Use Extremity: No Deformity, Swelling, Other (R knee: diffuse tenderness, mild edema and swelling. ) Pulses: Left Dorsalis Pedis: Normal, Right Dorsalis Pedis: Normal Neurological/Psych: Oriented x3 ED Course And Treatment - Laboratory Results Result Diagrams: 12/31/17 09:08 12/31/17 09:08 Lab Interpretation: No Acute Changes O2 Sat by Pulse Oximetry: 98 (RA) Pulse Ox Interpretation: Normal - Other Rad No standard instances X-Ray: Interpreted by Me Interpretation: Knee X-Ray: no fx Progress Note: Doppler US: (-) DVT. Treated with toradol IV. On re-evaluation (+) ROM Knee and leg. Ambulating with steady gait. On re-evaluation feeling better, in no distress. Discharged in stable condition Reassessment Condition: Improved Disposition Counseled Patient/Family Regarding: Studies Performed, Diagnosis, Need For Followup, Rx Given - Disposition Referrals: [facility] [Outside] [facility] [Outside] Disposition: HOME/ ROUTINE Disposition Time: 12:00 Condition: STABLE Additional Instructions: Follow up with clinic for further evaluation Return to ED if any increase symptoms Prescriptions: Naproxen [Naprosyn] 1 tab PO BID PRN #25 tab PRN Reason: Pain Instructions: Knee Pain (ED), Knee Exercises (GEN) Forms: [employer] (Macedonian) - POA Present On Arrival: None - Clinical Impression Clinical Impression: Knee pain, Leg edema - Scribe Statement The provider has reviewed the documentation as recorded by the Scribe (Dante De Jesus) All medical record entries made by the Scribe were at my direction and personally dictated by me. I have reviewed the chart and agree that the record accurately reflects my personal performance of the history, physical exam, medical decision making, and the department course for this patient. I have also personally directed, reviewed, and agree with the discharge instructions and disposition.
[2017-12-31 09:15] LABS: EOS # 0.1 K/uL (0.0-0.7); HEMOGLOBIN 14.2 g/dL (12.0-18.0)
[2017-12-31 09:24] LABS: ALB/GLOB RATIO 0.8 (1.0-2.1); ALBUMIN 3.6 g/dL (3.5-5.0); ALT/SGPT 46 U/L (21-72); AST/SGOT 146 U/L (17-59); BLOOD UREA NITROGEN 9 mg/dL (9-20); CALCIUM 9.1 mg/dl (8.6-10.4); GFR AFRICAN-AMERICAN > 60; GFR NON-AFRICAN AMERICAN > 60
[2017-12-31 09:27] LABS: LYMPH # 1.2 K/uL (1.0-4.3)
[2017-12-31 09:44] LABS: BASO # 0.1 K/uL (0.0-0.2); EOS % 1.2 % (0.0-4.0); LYMPH % 16.5 % (20.0-40.0); MEAN CELL VOLUME 107.2 fL (80.0-94.0); MEAN CORPUSCULAR HGB CONC 35.4 g/dL (33.0-37.0); MEAN PLATELET VOLUME 9.5 fL (7.2-11.7); MONO % 13.9 % (0.0-10.0); NEUT # 4.7 K/uL (1.8-7.0); NEUT % 67.4 % (50.0-75.0); NRBC % 0.1 % (0.0-2.0); RBC 3.73 Mil/uL (4.40-5.90); RED CELL DISTRIBUTION WIDTH 12.4 % (11.5-14.5)
--- NOTE | 2017-12-31 11:28 | VASCLAB ---
PROCEDURE: Lower Extremity Venous Duplex Exam. HISTORY: Edema PRIORS: 07/14/2017, normal. TECHNIQUE: Bilateral common femoral, femoral, popliteal and posterior tibial, peroneal and great saphenous veins were evaluated. Flow was assessed with color Doppler, compressibility, assessment of phasic flow and augmentation response. Report prepared by NADIA Landon FINDINGS: RIGHT: 1. Common Femoral Vein: 1.1. Compressibility - Fully compressible: Thrombus - None : Flow - Phasic: Augmentation -Normal: Reflux - None. 2. Femoral Vein: 2.1. Compressibility - Fully compressible: Thrombus - None : Flow - Phasic: Augmentation -Normal: Reflux - None. 3. Popliteal Vein: 3.1. Compressibility - Fully compressible: Thrombus - None : Flow - Phasic: Augmentation -Normal: Reflux - None. 4. Posterior Tibial Vein: 4.1. Compressibility - Fully compressible: Thrombus - None: Flow - Phasic: Augmentation -Normal: Reflux - None. 5. Peroneal Vein: 5.1. Compressibility - Fully compressible: Thrombus - None: Flow - Phasic: Augmentation -Normal: Reflux - None. 6. Great Saphenous Vein: 6.1. Compressibility - Fully compressible: Thrombus - None: Flow - Phasic: Augmentation - Normal: Reflux - None. LEFT: 1. Common Femoral Vein: 1.1. Compressibility - Fully compressible: Thrombus - None: Flow - Phasic: Augmentation -Normal: Reflux - None. 2. Femoral Vein: 2.1. Compressibility - Fully compressible: Thrombus - None: Flow - Phasic: Augmentation -Normal: Reflux - None. 3. Popliteal Vein: 3.1. Compressibility - Fully compressible: Thrombus - None : Flow - Phasic: Augmentation -Normal: Reflux - None. 4. Posterior Tibial Vein: 4.1. Compressibility - Fully compressible: Thrombus - None: Flow - Phasic: Augmentation -Normal: Reflux - None. 5. Peroneal Vein: 5.1. Compressibility - Fully compressible: Thrombus - None: Flow - Phasic: Augmentation -Normal: Reflux - None. 6. Great Saphenous Vein: 6.1. Compressibility - Fully compressible: Thrombus - None: Flow - Phasic: Augmentation - Normal: Reflux - None. OTHER FINDINGS: Right: Prominent lymph node is noted in the right groin area measuring 1.6 x 3.4 centimeter. Left: None significant. IMPRESSION: Right: No evidence of deep or superficial vein thrombosis of the right lower extremity. Normal valve function noted of the right side. Left: No evidence of deep or superficial vein thrombosis of the left lower extremity. Normal valve function noted of the left side.
--- NOTE | 2017-12-31 11:58 | RAD ---
PROCEDURE: Right Knee Radiographs. HISTORY: pain COMPARISON: None. FINDINGS: BONES: Normal. No fracture. JOINTS: No evidence of arthritis. Medial and lateral chondrocalcinosis. JOINT EFFUSION: None. OTHER FINDINGS: None. IMPRESSION: No evidence of fracture or arthritis. Chondrocalcinosis. As is as
[2017-12-31 12:19] VITALS: BP 133/88; PULSE 66; RESP 18; TEMP 98.5
[2017-12-31 15:48] VITALS: O2SAT 98
== END 2017-12-31 12:54 | disposition home or self-care (01) ==
LOC: C.ER 07:58
DX: M25.561 Pain in right knee (principal); R60.0 Localized edema; I10 Essential (primary) hypertension; E11.9 Type 2 diabetes mellitus without complications; K72.90 Hepatic failure, unspecified without coma
CPT/HCPCS: 73562; 80053; 85025; 93970; 96374; 99285; J1885

== ENCOUNTER 2018-08-19 22:25 | Inpatient (IN) | payer OTHER ==
[2018-08-19 22:25] VITALS: BMI 37.3
[2018-08-19] MEDS ORDERED: Sodium Chloride 0.9% 1,000 ML IV ONE (22:42)
--- NOTE | 2018-08-19 22:56 | C.PDOC ---
History Of Present Illness 57-year-old male, whose PMHx includes HTN and alcohol abuse, presents to the ED for evaluation of intermittent right-sided nose bleed for the past two days. Patient also states he has noticed black stool for the past few days. Patient notes he was told a while ago that he had cirrhosis, but then states he was told in the clinic that he does not have cirrhosis. Patient also complains of foot pain. Patient denies fever, chills, abdominal pain or trouble breathing at this time. Time Seen by Provider: 08/19/18 22:42 Chief Complaint (Nursing): ENT Problem History Per: Patient History/Exam Limitations: None Onset/Duration Of Symptoms: Days, Intermittent Episodes Current Symptoms Are (Timing): Still Present Past Medical History Reviewed: Historical Data, Nursing Documentation, Vital Signs Vital Signs: Last Vital Signs Temp 97.8 F 08/19/18 22:30 Pulse 100 H 08/19/18 22:30 Resp 24 08/19/18 22:30 BP 99/63 L 08/19/18 22:30 Pulse Ox 92 L 08/19/18 22:58 - Medical History PMH: HTN Surgical History: No Surg Hx - [facility] DETOXIFICATION SERVICES FOR SUBSTANCE ABUSE TREATMENT (07/14/17) Family History: States: Unknown Family Hx - Social History Hx Alcohol Use: Yes (Hard liquior 0.5-1L daily (rum/vodka/whiskey)) Hx Substance Use: Yes ([place]ana 1-3 per week/ETOH ABUSE) - Immunization History Hx Tetanus Toxoid Vaccination: No Hx Influenza Vaccination: No Hx Pneumococcal Vaccination: No Review Of Systems Constitutional: Negative for: Fever, Chills ENT: Positive for: Other (intermittent epistaxis ) Respiratory: Negative for: Shortness of Breath Gastrointestinal: Positive for: Other (black stools ) Musculoskeletal: Positive for: Foot Pain Physical Exam - Physical Exam Appears: Non-toxic, No Acute Distress Skin: Normal Color, Warm, Dry Head: Atraumatic, Normacephalic Eye(s): bilateral: Normal Inspection Nose: Other (dry blood noted in right nostril ) Oral Mucosa: Moist, Other (dry blood noted inside mouth ) Neck: Supple Chest: Symmetrical, No Deformity, No Tenderness Cardiovascular: Rhythm Regular, No Murmur, Other (tachycardia ) Respiratory: Rales (mild, bibasilar ), No Rhonchi, No Wheezing Gastrointestinal/Abdominal: Soft, No Tenderness, No Guarding, No Rebound, Other (rotund, unable to palpate liver ) Extremity: Normal ROM, Capillary Refill (less than 2 seconds ) Neurological/Psych: Oriented x3, Normal Speech, Normal Cognition ED Course And Treatment - Laboratory Results Result Diagrams: 08/19/18 22:54 08/19/18 22:54 Lab Interpretation: Abnormal (Plt 60, AST 205, Ca 7.7, Alb 3.4) ECG: Interpreted By Me ECG Rhythm: Sinus Rhythm ECG Interpretation: No Acute Changes O2 Sat by Pulse Oximetry: 92 Progress Note: Bloodwork and EKG ordered and reviewed. IV Fluids given. Reevaluation Time: 23:39 Reassessment Condition: Improved - Physician Consult Information Time Consulting Physician Contacted: 23:39 Physician Contacted: Néstor Vanessa Outcome Of Conversation: Patient to be admitted for thrombocytopenia with epistaxis Disposition - Disposition Disposition: HOSPITALIZED Disposition Time: 23:40 Condition: STABLE - POA Present On Arrival: None - Clinical Impression Clinical Impression: Thrombocytopenia, Epistaxis, Alcohol abuse - Scribe Statement The provider has reviewed the documentation as recorded by the Scribe (Moriah Koch) Provider Attestation: All medical record entries made by the Scribe were at my direction and personally dictated by me. I have reviewed the chart and agree that the record accurately reflects my personal performance of the history, physical exam, medical decision making, and the department course for this patient. I have also personally directed, reviewed, and agree with the discharge instructions and disposition.
[2018-08-19] MEDS ORDERED: Sodium Chloride 0.9% 1,000 ML ONE (22:57)
[2018-08-19 23:02] LABS: BASO # 0.1 K/uL (0.0-0.2); BASO % 1.1 % (0.0-2.0); EOS # 0.1 K/uL (0.0-0.7); EOS % 0.9 % (0.0-4.0); LYMPH # 2.5 K/uL (1.0-4.3); LYMPH % 27.9 % (20.0-40.0); MEAN CORPUSCULAR HEMOGLOBIN 39.4 pg (27.0-31.0); MEAN CORPUSCULAR HGB CONC 35.1 g/dL (33.0-37.0); MEAN PLATELET VOLUME 10.2 fL (7.2-11.7); MONO # 0.9 K/uL (0.0-0.8); MONO % 10.4 % (0.0-10.0); NEUT # 5.4 K/uL (1.8-7.0); NEUT % 59.7 % (50.0-75.0); NRBC % 0.2 % (0.0-2.0); RBC 3.05 Mil/uL (4.40-5.90); RED CELL DISTRIBUTION WIDTH 17.5 % (11.5-14.5)
[2018-08-19 23:03] LABS: INR 1.7; PROTHROMBIN TIME 18.4 SECONDS (9.7-12.2)
[2018-08-19 23:09] LABS: BLOOD UREA NITROGEN 16 mg/dL (9-20); CALCIUM 7.7 mg/dl (8.6-10.4); GFR NON-AFRICAN AMERICAN > 60
[2018-08-19 23:11] LABS: MEAN CELL VOLUME 112.1 fL (80.0-94.0)
[2018-08-19 23:13] LABS: ALB/GLOB RATIO 0.8 (1.0-2.1); ALBUMIN 3.4 g/dL (3.5-5.0); ALT/SGPT 25 U/L (21-72); AST/SGOT 205 U/L (17-59)
[2018-08-20 07:52] LABS: BASO # 0.1 K/uL (0.0-0.2); BASO % 0.8 % (0.0-2.0); EOS % 0.4 % (0.0-4.0); HEMOGLOBIN 12.1 g/dL (12.0-18.0); LYMPH # 2.5 K/uL (1.0-4.3); LYMPH % 24.6 % (20.0-40.0); MEAN CELL VOLUME 113.1 fL (80.0-94.0); MEAN CORPUSCULAR HEMOGLOBIN 39.6 pg (27.0-31.0); MEAN PLATELET VOLUME 9.1 fL (7.2-11.7); MONO % 10.3 % (0.0-10.0); NEUT # 6.5 K/uL (1.8-7.0); NEUT % 63.9 % (50.0-75.0); NRBC % 0.2 % (0.0-2.0); RBC 3.05 Mil/uL (4.40-5.90); RED CELL DISTRIBUTION WIDTH 18.1 % (11.5-14.5); WHITE BLOOD COUNT 10.1 K/uL (4.8-10.8)
[2018-08-20 08:03] LABS: INR 1.8; PROTHROMBIN TIME 19.2 SECONDS (9.7-12.2)
[2018-08-20 08:08] LABS: ALB/GLOB RATIO 0.8 (1.0-2.1); ALBUMIN 3.3 g/dL (3.5-5.0); ALT/SGPT 45 U/L (21-72); AST/SGOT 206 U/L (17-59); BLOOD UREA NITROGEN 21 mg/dL (9-20); CALCIUM 7.8 mg/dl (8.6-10.4); GFR NON-AFRICAN AMERICAN > 60
[2018-08-20] MEDS ORDERED: Multivitamin (MVI) 10 ML, Thiamine 100 MG, Folic Acid 1 MG in Sodium Chloride 0.9% 1,00... IV ONE ×2 (08:25→09:00)
--- NOTE | 2018-08-20 09:19 | US ---
Date of service: 08/20/2018 HISTORY: liver cirrhosis hx /abd pain COMPARISON: Abdomen ultrasound 07/14/2017. TECHNIQUE: Sonographic evaluation of the abdomen. FINDINGS: LIVER: Measures 20.6 cm. Diffusely increased echogenicity of the liver parenchyma suggests diffuse fatty infiltration or other infiltrative process once again. No mass. No intrahepatic bile duct dilatation. GALLBLADDER: Unremarkable. No gallstones. COMMON BILE DUCT: Measures 4.7 mm. No stones. No dilatation. PANCREAS: Pancreas is completely obscured by overlying bowel gas. RIGHT KIDNEY: Measures 11.4cm. Normal echogenicity. No calculus, mass, or hydronephrosis. LEFT KIDNEY: Measures 12.0cm. Normal echogenicity. No calculus, mass, or hydronephrosis. SPLEEN: Normal in size and contour. No mass. AORTA: Poorly evaluated due to overlying bowel gas. IVC: Poorly evaluated due to overlying bowel gas. OTHER FINDINGS: Main portal vein is poorly evaluated due to overlying bowel gas. IMPRESSION: Hepatomegaly. Likely diffuse fatty infiltration reiterated with other etiologies possible for echogenic hepatic parenchymal appearance once again. Body habitus and overlying bowel obscures evaluation of the pancreas, abdominal aorta and inferior vena cava as well as the portal vein.
[2018-08-20] MEDS: Multiple Vitamins Tab PO SCH (09:54)
[2018-08-20] MEDS ORDERED: Magnesium Sulfate 1 gm in D5W 1 GM/100 ML BAG IVPB ONE (10:11)
[2018-08-20] MEDS: Magnesium Sulfate 1 gm in D5W 1 GM/100 ML BAG IVPB SCH ×2 (11:30→12:00)
--- NOTE | 2018-08-20 11:41 | CP.PCM.PCO ---
Physician Communication Note - Physician Communication Note Physician Communication Note: RIYA Diamond contacted, detox started. Pls consult if more help needed.
[2018-08-20 17:35] LABS: SQUAMOUS EPITHIAL < 1 /hpf (0-5); URINE BACTERIA RARE (<OCC); URINE BILIRUBIN 1+ (NEGATIVE); URINE BLOOD NEGATIVE (NEGATIVE); URINE CLARITY Clear (Clear); URINE COLOR Amber (YELLOW); URINE GLUCOSE (UA) NORMAL (Normal); URINE HYALINE CAST >20 /lpf (0-2); URINE LEUKOCYTE ESTERASE NEG Leu/uL (Negative); URINE PROTEIN NEGATIVE (NEGATIVE)
[2018-08-20 18:08] LABS: BARBITURATES, UR NEGATIVE (NEGATIVE); BENZODIAZEPINES, UR NEGATIVE (NEGATIVE); OPIATES, UR NEGATIVE (NEGATIVE); PHENCYCLIDINE, UR NEGATIVE (NEGATIVE)
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
--- NOTE | 2018-08-20 21:28 | CARD ---
APPROVED REPORT Date of service: 08/19/2018 EKG Measurement Heart [id number] <Conclusion> Normal sinus rhythm Prolonged QT Abnormal ECG
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
--- NOTE | 2018-08-20 22:16 | CON ---
DATE: 08/20/2018 REQUESTING PHYSICIAN: Néstor Vanessa MD REASON FOR CONSULTATION: Epistaxis on the right, recurrent. HISTORY OF PRESENT ILLNESS: This is a 57-year-old male with two or three-day history of epistaxis from the right side. It is moderate, on and off, on the right. No additional nasal congestion. No nasal pain. PAST MEDICAL HISTORY: As noted in the chart by me. MEDICATIONS: As noted in the chart by me. PHYSICAL EXAMINATION: HEAD: Atraumatic and normocephalic. FACE: Good facial movements bilaterally. CONSTITUTIONAL: Well fed, well nourished. COMMUNICATION: Communicates well and appropriately. EXTERNAL NOSE AND EARS: No masses. No lesions. No erythema. No edema. INTERNAL NOSE: Deviated septum. No masses. No lesions. No erythema. No edema. No bleeding. Bleeding area old one noted on the right septum. ORAL CAVITY AND OROPHARYNX: No bloody postnasal drip. No masses. No lesions. No erythema. No edema. LIPS AND GUMS: No masses. No lesions. No erythema. No edema. NECK: Supple. THYROID: No thyromegaly. No goiter. LYMPH NODES: No lymphadenopathy of the neck. LABORATORY DATA: The patient's labs show that patient has high INR and low platelets. At this point since the patient has coagulopathy, we will not cauterize. Once coagulopathy is controlled and if the patient still has bleeding on and off, we will cauterize in the office. ASSESSMENT: Deviated septum and epistaxis. Shiva Arreguin MD
--- NOTE | 2018-08-21 04:16 | PCM.FALL ---
Post Fall Progress Note - Post Fall Fall Date: 08/21/18 Fall Time: 04:02 Description of Fall: CODE STAR NOTE Code Star called at 4:02 AM. Nurse found patient, at the inferior corner of the bed, holding on attempting to get up. He was then asked to sit back down temporarily. Patient states that he we was on his way to the restroom. He then lost his balance, tripped on the bed shit and fell. Patient denies hitting his head. He does complain of lower extremity muscle weakness, generalized weakness, and lethargy. Patient then helped by 2 nurses and me to get back in the bed. - Post Fall Exam Vital Sign: Temp Pulse Resp BP Pulse Ox 98.9 F 109 H 20 130/78 96 08/21/18 03:15 08/21/18 03:15 08/21/18 03:15 08/21/18 03:15 08/21/18 03:15 Skull Exam: Negative for: Scalp wound, Scalp hematoma, Scalp depression, Ridge in skull Eye Exam: Positive for: Pupils equal, Pupils reactive Nose Exam: Negative for: Discharge Skin Exam: Negative for: Lacerations, Grazes, Bruising Mouth Exam: Negative for: Tongue bitten, Teeth dislodge Neck Exam: Negative for: Tenderness Spinal Exam: Negative for: Tenderness Chest Exam: Negative for: Difficulty breathing Abdomen Exam: Negative for: Tenderness Arm Exam: Negative for: Alteration in range of movement (5/5 Strength ) Leg Exam: Negative for: Alteration in range of movement (5/5 Strength) Other pertinent findings: Positive Tremor. Impression/Plan: No intervention
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
[2018-08-21 07:49] LABS: INR 1.7; PROTHROMBIN TIME 18.3 SECONDS (9.7-12.2)
[2018-08-21 07:59] LABS: ALB/GLOB RATIO 0.8 (1.0-2.1); ALBUMIN 2.8 g/dL (3.5-5.0); ALT/SGPT 40 U/L (21-72); AST/SGOT 157 U/L (17-59); BLOOD UREA NITROGEN 26 mg/dL (9-20); CALCIUM 7.7 mg/dl (8.6-10.4); GFR NON-AFRICAN AMERICAN > 60
[2018-08-21 08:07] LABS: BASO # 0.1 K/uL (0.0-0.2); EOS % 0.5 % (0.0-4.0); LYMPH # 1.7 K/uL (1.0-4.3); LYMPH % 19.8 % (20.0-40.0); MEAN CELL VOLUME 111.7 fL (80.0-94.0); MEAN CORPUSCULAR HEMOGLOBIN 39.2 pg (27.0-31.0); MEAN CORPUSCULAR HGB CONC 35.1 g/dL (33.0-37.0); MEAN PLATELET VOLUME 9.9 fL (7.2-11.7); MONO # 0.6 K/uL (0.0-0.8); MONO % 7.2 % (0.0-10.0); NEUT # 6.3 K/uL (1.8-7.0); NEUT % 71.5 % (50.0-75.0); NRBC % 0.1 % (0.0-2.0); RBC 2.52 Mil/uL (4.40-5.90); RED CELL DISTRIBUTION WIDTH 18.1 % (11.5-14.5); WHITE BLOOD COUNT 8.8 K/uL (4.8-10.8)
[2018-08-21 08:10] LABS: HEMOGLOBIN 9.9 g/dL (12.0-18.0)
[2018-08-21] MEDS ORDERED: Phytonadione 10 mg/ml Inj (Adult) IV STA (08:35)
[2018-08-21] MEDS ORDERED: Phytonadione 10 MG in Sodium Chloride 0.9% 50 ML IV STA (08:53)
[2018-08-21] MEDS ORDERED: Propofol 10 mg/ml Inj (20 ML) ONE (10:37)
[2018-08-21] MEDS: Multiple Vitamins Tab PO SCH (10:58)
[2018-08-21] MEDS: Sodium Chloride 0.9% 1,000 ML IV SCH ×3 (11:32→22:04)
[2018-08-21] MEDS: Magnesium Sulfate 1 gm in D5W 1 GM/100 ML BAG IVPB SCH ×4 (11:33→11:59)
[2018-08-21] MEDS: Sucralfate 1 gm/10 ml Oral Susp UD PO SCH (16:29)
--- NOTE | 2018-08-22 02:37 | PN ---
DATE: 08/21/2018 SUBJECTIVE: The patient is feeling better. He had a fall. His H and H dropped. He was seen by Hematology. The patient does not have any GI bleed, but he did have some more epistaxis. He is drowsy. He is withdrawing. Seen by GI. No fever. No chills. PHYSICAL EXAMINATION: LUNGS: Clear. CARDIOVASCULAR SYSTEM: S1 and S2 are regular. ABDOMEN: Soft. ASSESSMENT: 1. Alcoholic liver disease. 2. Coagulopathy and thrombocytopenia due to alcoholism. 3. Rule out cirrhosis of liver. 4. Epistaxis. DIAGNOSTIC DATA: The patient had abdominal ultrasound showed hepatomegaly with diffuse fatty infiltration with hepatic parenchymal disease. PLAN: Supportive care. Correct coagulopathy. See by ENT. Monitor the patient. Néstor Vanessa MD
[2018-08-22] MEDS ORDERED: Phytonadione 10 mg/ml Inj (Adult) SC STA ×2 (07:13→09:02)
[2018-08-22] MEDS: Sucralfate 1 gm/10 ml Oral Susp UD PO SCH ×2 (08:30→17:10)
[2018-08-22 09:00] LABS: FOLATE 2.5 ng/mL
--- NOTE | 2018-08-22 09:31 | PN ---
DATE: 08/22/2018 LOCATION: 353, bed A. SUBJECTIVE: This is a 57 years old male post upper endoscopy yesterday with biopsy, seen and examined in rounds with less complaint of abdominal pain appears to be somewhat more awake and alert. The entire chart is reviewed including but not limited to most recent lab and radiology study results, current and previous medication list, current and previous medical events and latest CEA level was 6.6, elevated with increased CEA 19 - 9-to 39.3, for which the patient is scheduled for colonoscopy after adequate preparation. His PT is still elevated at 18.3 with PTT 38. The patient has increased total bilirubin levels since admission. PHYSICAL EXAMINATION: GENERAL: A 57 years old male, awake, alert, afebrile. Denied any chest pain, palpitation or significant shortness of breath. HEENT: Heart rate of 84, respiratory 20-22, blood pressure of 110/74. HEENT: Showed pale dry mucoid membrane with bilateral icteric sclerae. LUNGS: Few scattered crepitation. Decreased air entry at bases. HEART: Positive S1 and S2. ABDOMEN: Soft with mild distention and generalized tenderness. No mass or organomegaly. No rebound tenderness or guarding; however, the patient liver span indicative of hepatomegaly. EXTREMITIES: Without significant clubbing, cyanosis or edema. NEUROLOGIC: No reported new neurological deficits, sensory or motor, no new focal deficits. IMPRESSION: 1. Alcoholism. 2. Alcoholic liver disease. 3. Abnormal liver function test with jaundice secondary to above. 4. Electrolyte imbalance with hypocalcemia, hypomagnesemia. 5. Coagulopathy secondary to above. 6. Hepatomegaly due to above. 7. Peptic ulcer disease by recent upper endoscopy. 8. Known history of hypertension. SUGGESTIONS: 1. Continue current management. 2. Correct any underlying electrolyte imbalance. 3. Fresh frozen plasma, correct any underlying coagulopathy. 4. The patient for colonoscopy after adequate preparation. 5. We will follow up closely with you and serum lipase, amylase level to be ordered. Thank you for letting me participate in your patient's case management. Garrett Lei MD [facility] # [id number]
[2018-08-22] MEDS ORDERED: Pneumococcal 23-Valent Vaccine SC ONE (10:00)
[2018-08-22] MEDS: Multiple Vitamins Tab PO SCH (11:00)
[2018-08-22] MEDS: Sodium Chloride 0.9% 1,000 ML IV SCH ×2 (11:37→15:00)
--- NOTE | 2018-08-22 23:04 | CP.PCM.PN ---
Objective - Vital Signs/Intake and Output Vital Signs (last 24 hours): Temp Pulse Resp BP Pulse Ox 98.4 F 87 20 118/72 94 L 08/22/18 15:00 08/22/18 15:00 08/22/18 15:00 08/22/18 15:00 08/22/18 15:00 Intake and Output: 08/22/18 08/23/18 18:59 06:59 Intake Total 300 640 Balance 300 640 - Medications Medications: Current Medications Bisacodyl (Dulcolax) 10 mg PO ONCE ONE Stop: 08/23/18 17:01 Famotidine (Pepcid) 20 mg IVP Q12 [facility] Last Admin: 08/22/18 21:26 Dose: 20 mg Sodium Chloride (Sodium Chloride 0.9%) 1,000 mls @ 80 mls/hr IV .[id number] [facility] Last Admin: 08/22/18 15:00 Dose: 80 mls/hr Lorazepam (Ativan) 1 mg IVP Q4H PRN PRN Reason: Symptoms of alcohol withdrawl Lorazepam (Ativan) 2 mg PO Q8H [facility] PRN Reason: Taper Stop: 08/25/18 13:59 Last Admin: 08/22/18 21:24 Dose: 2 mg Metoclopramide HCl (Reglan) 5 mg IVP Q6H [facility] Multivitamins (Hexavitamin) 1 tab PO DAILY [facility] Last Admin: 08/22/18 11:00 Dose: 1 tab Neomycin Sulfate (Neomycin Tab) 500 mg PO ACBHS [facility] Last Admin: 08/22/18 21:24 Dose: 500 mg Ondansetron HCl (Zofran Inj) 4 mg IVP Q8H PRN PRN Reason: Nausea/Vomiting Last Admin: 08/21/18 20:49 Dose: 4 mg Polyethylene Glycol/Electrolytes (Golytely) 4,000 ml PO ONCE ONE Stop: 08/23/18 09:01 Sucralfate (Carafate Oral Susp) 1 gm PO ACBD [facility] Last Admin: 08/22/18 17:10 Dose: 1 gm Thiamine HCl (Vitamin B1 Tab) 100 mg PO DAILY [facility] Last Admin: 08/22/18 11:00 Dose: 100 mg Trazodone HCl (Desyrel) 50 mg PO HS PRN PRN Reason: Insomnia - Labs Labs: 08/21/18 07:07 08/21/18 07:07 PT 18.3 SECONDS (9.7-12.2) H 08/21/18 07:07 INR 1.7 08/21/18 07:07 APTT 38 SECONDS (21-34) H 08/21/18 07:07
--- NOTE | 2018-08-23 01:26 | PN ---
DATE: 08/22/2018 SUBJECTIVE: The patient is feeling better. His H and H are stable. No shortness of breath. No nausea, vomiting. PHYSICAL EXAMINATION: LUNGS: Clear. CVS: S1, S2, regular. ABDOMEN: Soft. Nontender. Bowel sound are positive. ASSESSMENT: 1. Coagulopathy, thrombocytopenia. 2. Alcoholic liver disease. 3. Alcoholism and polysubstance abuse. 4. Dehydration. PLAN: Continue current medication. Monitor H and H. Monitor the patient. Néstor Vanessa MD
[2018-08-23] MEDS: Sodium Chloride 0.9% 1,000 ML IV SCH ×3 (06:01→14:23)
[2018-08-23 07:21] LABS: HEMOGLOBIN 9.1 g/dL (12.0-18.0); MEAN CELL VOLUME 112.9 fL (80.0-94.0); MEAN CORPUSCULAR HEMOGLOBIN 40.2 pg (27.0-31.0); MEAN CORPUSCULAR HGB CONC 35.6 g/dL (33.0-37.0); MEAN PLATELET VOLUME 9.5 fL (7.2-11.7); RBC 2.25 Mil/uL (4.40-5.90); RED CELL DISTRIBUTION WIDTH 18.1 % (11.5-14.5); WHITE BLOOD COUNT 6.1 K/uL (4.8-10.8)
[2018-08-23 07:34] LABS: BLOOD UREA NITROGEN 13 mg/dL (9-20); CALCIUM 7.8 mg/dl (8.6-10.4); GFR NON-AFRICAN AMERICAN > 60
[2018-08-23] MEDS: Sucralfate 1 gm/10 ml Oral Susp UD PO SCH ×2 (08:30→16:41)
[2018-08-23] MEDS ORDERED: Peg-Electrolyte Oral Soln 4L (Golytely) PO ONE (09:00)
[2018-08-23] MEDS: Multiple Vitamins Tab PO SCH (09:26)
--- NOTE | 2018-08-23 13:36 | PN ---
DATE: 08/23/2018 LOCATION: 353, bed A. SUBJECTIVE: This 57-year-old male seen and examined in rounds without significant clinical changes with recurrent of headache as well as abdominal pain with mild generalized weakness and malaise. The patient appears to be more awake, alert and oriented. The entire chart is reviewed including but not limited to the most recent lab and radiology study results, current and the previous medication list, current and the previous medical events. Today's lab showed hemoglobin of 9.1 with hematocrit 25.5, less than before with thrombocytopenia of 64, sodium 130, potassium 3.4, calcium 7.8 with recently reported elevated CEA and CA 19-9. He still has elevated AST and alkaline phosphatase. PHYSICAL EXAMINATION: GENERAL: A 57-year-old male. VITAL SIGNS: Afebrile with pulse of 90, respiratory rate 20 to 22, and blood pressure of 124/74. HEENT: Showed pale, dry oral mucous membrane. Nonicteric sclerae. LUNGS: Few scattered crepitation. Decreased air entry at bases. HEART: Positive S1 and S2. ABDOMEN: Soft. Bowel sounds are present. No mass or organomegaly. No rebound tenderness or guarding. Mild abdominal distention noticed. EXTREMITIES: With lower extremities mild edematous changes; however, the patient is still having very occasional slight fine tremors of both hands. IMPRESSION: 1. Anemia, to rule out gastrointestinal blood loss, lower gastrointestinal blood loss. 2. To rule out lower gastrointestinal malignancy. 3. Alcoholism with alcoholic liver disease and abnormal liver function tests. 4. Coagulopathy secondary to above. 5. Jaundice secondary to his liver disease. 6. Electrolyte imbalance with hyponatremia, hypocalcemia and hypomagnesemia. 7. Hepatomegaly due to above. 8. Re-exacerbation of peptic ulcer disease. 9. Known history of hypertension. 10. Duodenal ulcer with duodenitis by recent endoscopy. SUGGESTIONS: 1. Agree with your plan. 2. The patient for colonoscopy at a.m. to rule out lower GI tract blood loss as well as due to his increased CEA level. Garrett Lei MD
[2018-08-23] MEDS ORDERED: Bisacodyl 5mg EC Tab PO ONE (17:00)
--- NOTE | 2018-08-23 19:50 | CP.PCM.PN ---
Objective - Vital Signs/Intake and Output Vital Signs (last 24 hours): Temp Pulse Resp BP Pulse Ox 97.6 F 90 20 118/75 98 08/23/18 17:00 08/23/18 17:00 08/23/18 17:00 08/23/18 17:00 08/23/18 17:00 Intake and Output: 08/23/18 08/24/18 18:59 06:59 Intake Total 2640 Balance 2640 - Medications Medications: Current Medications Acetaminophen (Tylenol 325mg Tab) 650 mg PO Q6 PRN PRN Reason: pain Last Admin: 08/23/18 16:53 Dose: 650 mg Famotidine (Pepcid) 20 mg IVP Q12 [facility] Last Admin: 08/23/18 09:26 Dose: 20 mg Sodium Chloride (Sodium Chloride 0.9%) 1,000 mls @ 80 mls/hr IV .[id number] [facility] Last Admin: 08/23/18 14:23 Dose: Not Given Lorazepam (Ativan) 1 mg IVP Q4H PRN PRN Reason: Symptoms of alcohol withdrawl Lorazepam (Ativan) 2 mg PO Q12H [facility] PRN Reason: Taper Stop: 08/25/18 13:59 Last Admin: 08/23/18 14:22 Dose: 2 mg Metoclopramide HCl (Reglan) 5 mg IVP Q6H [facility] Last Admin: 08/23/18 14:22 Dose: 5 mg Multivitamins (Hexavitamin) 1 tab PO DAILY [facility] Last Admin: 08/23/18 09:26 Dose: 1 tab Neomycin Sulfate (Neomycin Tab) 500 mg PO ACBHS [facility] Last Admin: 08/23/18 08:30 Dose: 500 mg Ondansetron HCl (Zofran Inj) 4 mg IVP Q8H PRN PRN Reason: Nausea/Vomiting Last Admin: 08/21/18 20:49 Dose: 4 mg Sucralfate (Carafate Oral Susp) 1 gm PO ACBD [facility] Last Admin: 08/23/18 16:41 Dose: 1 gm Thiamine HCl (Vitamin B1 Tab) 100 mg PO DAILY [facility] Last Admin: 08/23/18 09:26 Dose: 100 mg Trazodone HCl (Desyrel) 50 mg PO HS PRN PRN Reason: Insomnia - Labs Labs: 08/23/18 07:10 08/23/18 07:10 PT 18.3 SECONDS (9.7-12.2) H 08/21/18 07:07 INR 1.7 08/21/18 07:07 APTT 38 SECONDS (21-34) H 08/21/18 07:07
[2018-08-23] MEDS ORDERED: Potassium Chloride 20 mEq/15 ml LIQ UD PO ONE ×2 (20:00→21:45)
--- NOTE | 2018-08-23 22:42 | CON ---
DATE: 08/20/[address] Lei to Dr. Néstor Vanessa. I was called for GI consultation by the admitting medical team. The patient is seen and fully examined on 08/20/2018 as requested by the admitting medical staff, a short hand written consultation sheet left in the chart at the time of consultation. Case was discussed at length with the admitting medical team. The entire chart is reviewed including but not limited to the most recent lab and radiology study results, current and previous medication lists, current and the previous medical events. HISTORY OF PRESENT ILLNESS: This is a 57-year-old male who was admitted to the hospital initially with perfused nasal bleeding, treated in the emergency room with abdominal pain, tremor, generalized weakness and malaise with dyspepsia. No chest pain or palpitation, but very poor oral intake. Keeping in mind that the patient has a known history of alcohol-induced liver cirrhosis. PAST MEDICAL HISTORY: Mainly including but not limited to, 1. Hypertension. 2. Alcoholism. 3. Alcoholic liver disease. 4. Previous history of admission for substance abuse. 5. Peptic ulcer disease. FAMILY HISTORY: Unknown. SOCIAL HISTORY: Positive for excessive alcohol intake as well as substance abuse and cigarette smoking or before. ALLERGIES TO MEDICATION: UNCLEAR. CURRENT MEDICATIONS: Post-admission medication lists were reviewed. LABORATORY DATA: Upon being admitted to the hospital, the patient was found to have hemoglobin of 12, hematocrit 34.2 with initial platelet count of 60 only. Blood glucose level 123 with CO2 content of 31. Stool was positive for occult blood. PHYSICAL EXAMINATION: GENERAL: A 57-year-old male, somewhat agitated, restless with upper extremity fine tremors. The patient denied any actual chest pain or significant shortness of breath. VITAL SIGNS: The patient is afebrile with pulse of 98, respiratory rate 20 to 24 with a blood pressure of 106/66. HEENT: Showed pale, dry mucous membrane with bilateral icteric sclerae. LYMPH NODES: No lymphadenitis or lymphadenopathy. LUNGS: Few scattered crepitation with decreased air entry at bases. HEART: Positive S1 and S2 with increased rate. ABDOMEN: Soft with mild generalized tenderness. No mass or organomegaly. No rebound tenderness or guarding. Abdominal distention with mild ascites noted. EXTREMITIES: With lower extremity edematous changes. No clubbing or cyanosis. NEUROLOGIC: No reported new neurological deficits, sensory or motor. IMPRESSION: 1. Alcoholism. 2. Alcoholic liver disease. 3. Jaundice secondary to above with abnormal liver function tests. 4. Subsequent drop of hemoglobin and hematocrit. 5. Nasal bleeding, most likely secondary to the patient's severe thrombocytopenia. 6. Known history of hypertension. SUGGESTIONS: 1. Continue current management. 2. Correct underlying coagulopathy. 3. Ammonia level as the patient has evidence and elements of early stage of hepatic encephalopathy. 4. Correct the patient's underlying thrombocytopenia. 5. Endoscopic evaluation of the GI tract due to the patient's subsequent drop of hemoglobin and hematocrit and is guaiac-positive stool, the patient never had endoscopic evaluation of the GI tract as per his statement. 6. Further recommendation to follow. Thank you for letting me to participate in your patient's case management. Garrett Lei MD
[2018-08-24] MEDS: Sodium Chloride 0.9% 1,000 ML IV SCH ×2 (00:15→12:48)
--- NOTE | 2018-08-24 07:16 | PCM.FALL ---
Post Fall Progress Note - Post Fall Fall Date: 08/24/18 Fall Time: 07:03 Description of Fall: [facility] called at 7:03 AM after patient suffered a fall. Per Clinical partner, patient unruly up from his bed, when his left lower extremity wobbled. Patient then lost footing and fell to the ground landing on his left lateral side. In the process, patient's right temporal area hit the ground. Patient recalled a different course of events however so, stating that he tripped over a phone wire. Patient examined. STAT head CT ordered. Ibuprofen STAT ordered. Ice Pack placed to affected site. Instructions given to nursing staff. Continue to monitor. - Post Fall Exam Vital Sign: Temp Pulse Resp BP Pulse Ox 98.6 F 86 20 115/75 96 08/24/18 00:00 08/24/18 00:00 08/24/18 00:00 08/24/18 00:00 08/24/18 00:00 Skull Exam: Negative for: Scalp wound, Scalp hematoma, Scalp depression Eye Exam: Positive for: Pupils equal Nose Exam: Positive for: Discharge (dried blood at the nasal opening- not new) Skin Exam: Positive for: Bruising (mild bruising on the left temporal side of face). Negative for: Lacerations, Grazes Mouth Exam: Negative for: Tongue bitten Chest Exam: Negative for: Difficulty breathing, Tenderness in collar bones Other pertinent findings: motor/sensory exam intact
--- NOTE | 2018-08-24 08:34 | CT ---
Date of service: 08/24/2018 PROCEDURE: CT HEAD WITHOUT CONTRAST. HISTORY: rule out intracranial bleed/ post fall COMPARISON: Not available TECHNIQUE: Axial computed tomography images were obtained through the head/brain without intravenous contrast. Radiation dose: Total exam DLP = 1122.11 mGy-cm. This CT exam was performed using one or more of the following dose reduction techniques: Automated exposure control, adjustment of the mA and/or kV according to patient size, and/or use of iterative reconstruction technique. FINDINGS: HEMORRHAGE: No intracranial hemorrhage. BRAIN: No mass effect or edema. No atrophy or chronic microvascular ischemic changes. VENTRICLES: Unremarkable. No hydrocephalus. CALVARIUM: Unremarkable. PARANASAL SINUSES: Unremarkable as visualized. No significant inflammatory changes. MASTOID AIR CELLS: Unremarkable as visualized. No inflammatory changes. OTHER FINDINGS: None. IMPRESSION: Normal CT of the Head. No acute intracranial hemorrhage.
[2018-08-24] MEDS: Sucralfate 1 gm/10 ml Oral Susp UD PO SCH ×2 (08:36→17:42)
[2018-08-24] MEDS: Multiple Vitamins Tab PO SCH (09:12)
[2018-08-24] MEDS ORDERED: Propofol 10 mg/ml Inj (20 ML) ONE ×2 (10:15→10:28)
[2018-08-24] MEDS ORDERED: Midazolam 2 MG/2 ML VIAL ONE (10:24)
[2018-08-24 16:04] VITALS: RESP 20
--- NOTE | 2018-08-24 22:36 | CP.PCM.PN ---
Objective - Vital Signs/Intake and Output Vital Signs (last 24 hours): Temp Pulse Resp BP Pulse Ox 97.9 F 85 20 106/66 95 08/24/18 16:03 08/24/18 16:03 08/24/18 16:03 08/24/18 16:03 08/24/18 16:03 Intake and Output: 08/24/18 08/25/18 18:59 06:59 Intake Total 1340 Balance 1340 - Medications Medications: Current Medications Famotidine (Pepcid) 40 mg PO DAILY [facility] Lorazepam (Ativan) 1 mg IVP Q4H PRN PRN Reason: Symptoms of alcohol withdrawl Metoclopramide HCl (Reglan) 5 mg IVP Q6H [facility] Last Admin: 08/24/18 18:57 Dose: 5 mg Multivitamins (Hexavitamin) 1 tab PO DAILY [facility] Last Admin: 08/24/18 09:12 Dose: Not Given Neomycin Sulfate (Neomycin Tab) 500 mg PO ACBHS [facility] Last Admin: 08/24/18 21:23 Dose: 500 mg Ondansetron HCl (Zofran Inj) 4 mg IVP Q8H PRN PRN Reason: Nausea/Vomiting Last Admin: 08/21/18 20:49 Dose: 4 mg Sucralfate (Carafate Oral Susp) 1 gm PO ACBD [facility] Last Admin: 08/24/18 17:42 Dose: 1 gm Thiamine HCl (Vitamin B1 Tab) 100 mg PO DAILY [facility] Last Admin: 08/24/18 09:12 Dose: Not Given Tramadol HCl (Ultram) 50 mg PO TID PRN PRN Reason: Pain, severe (8-10) Last Admin: 08/24/18 21:23 Dose: 50 mg Trazodone HCl (Desyrel) 50 mg PO HS PRN PRN Reason: Insomnia - Labs Labs: 08/23/18 07:10 08/23/18 07:10 PT 18.3 SECONDS (9.7-12.2) H 08/21/18 07:07 INR 1.7 08/21/18 07:07 APTT 38 SECONDS (21-34) H 08/21/18 07:07
--- NOTE | 2018-08-24 22:44 | CP.PCM.PN ---
Subjective - Date & Time of Evaluation Date of Evaluation: 08/21/18 Time of Evaluation: 19:00 - Subjective Subjective: No complaints. Objective - Vital Signs/Intake and Output Vital Signs (last 24 hours): Temp Pulse Resp BP Pulse Ox 97.9 F 85 20 106/66 95 08/24/18 16:03 08/24/18 16:03 08/24/18 16:03 08/24/18 16:03 08/24/18 16:03 Intake and Output: 08/24/18 08/25/18 18:59 06:59 Intake Total 1340 Balance 1340 - Medications Medications: Current Medications Famotidine (Pepcid) 40 mg PO DAILY [facility] Lorazepam (Ativan) 1 mg IVP Q4H PRN PRN Reason: Symptoms of alcohol withdrawl Metoclopramide HCl (Reglan) 5 mg IVP Q6H [facility] Last Admin: 08/24/18 18:57 Dose: 5 mg Multivitamins (Hexavitamin) 1 tab PO DAILY [facility] Last Admin: 08/24/18 09:12 Dose: Not Given Neomycin Sulfate (Neomycin Tab) 500 mg PO ACBHS [facility] Last Admin: 08/24/18 21:23 Dose: 500 mg Ondansetron HCl (Zofran Inj) 4 mg IVP Q8H PRN PRN Reason: Nausea/Vomiting Last Admin: 08/21/18 20:49 Dose: 4 mg Sucralfate (Carafate Oral Susp) 1 gm PO ACBD [facility] Last Admin: 08/24/18 17:42 Dose: 1 gm Thiamine HCl (Vitamin B1 Tab) 100 mg PO DAILY [facility] Last Admin: 08/24/18 09:12 Dose: Not Given Tramadol HCl (Ultram) 50 mg PO TID PRN PRN Reason: Pain, severe (8-10) Last Admin: 08/24/18 21:23 Dose: 50 mg Trazodone HCl (Desyrel) 50 mg PO HS PRN PRN Reason: Insomnia - Labs Labs: 08/23/18 07:10 08/23/18 07:10 PT 18.3 SECONDS (9.7-12.2) H 08/21/18 07:07 INR 1.7 08/21/18 07:07 APTT 38 SECONDS (21-34) H 08/21/18 07:07 - Head Exam Head Exam: ATRAUMATIC - Eye Exam Eye Exam: Normal appearance - ENT Exam ENT Exam: Mucous Membranes Dry - Respiratory Exam Respiratory Exam: NORMAL BREATHING PATTERN - Cardiovascular Exam Cardiovascular Exam: +S1, +S2 - GI/Abdominal Exam GI & Abdominal Exam: Normal Bowel Sounds Assessment and Plan (1) Thrombocytopenia Assessment & Plan: bone marrow suppression from alcohol likely thrombopoietin dysregulation from liver disease transfuse plt if bleeding and plt < 50,000 Status: Acute (2) Coagulopathy Assessment & Plan: liver disease s/p FFP transfusion likely also nutritional component; s/p vit k Status: Acute (3) Anemia Assessment & Plan: blood loss no iron/b12/folate deficiency chronic disease Status: Acute
--- NOTE | 2018-08-24 22:50 | CP.PCM.PN ---
Subjective - Date & Time of Evaluation Date of Evaluation: 08/22/18 Time of Evaluation: 15:00 - Subjective Subjective: No complaints. Objective - Vital Signs/Intake and Output Vital Signs (last 24 hours): Temp Pulse Resp BP Pulse Ox 97.9 F 85 20 106/66 95 08/24/18 16:03 08/24/18 16:03 08/24/18 16:03 08/24/18 16:03 08/24/18 16:03 Intake and Output: 08/24/18 08/25/18 18:59 06:59 Intake Total 1340 Balance 1340 - Medications Medications: Current Medications Famotidine (Pepcid) 40 mg PO DAILY [facility] Lorazepam (Ativan) 1 mg IVP Q4H PRN PRN Reason: Symptoms of alcohol withdrawl Metoclopramide HCl (Reglan) 5 mg IVP Q6H [facility] Last Admin: 08/24/18 18:57 Dose: 5 mg Multivitamins (Hexavitamin) 1 tab PO DAILY [facility] Last Admin: 08/24/18 09:12 Dose: Not Given Neomycin Sulfate (Neomycin Tab) 500 mg PO ACBHS [facility] Last Admin: 08/24/18 21:23 Dose: 500 mg Ondansetron HCl (Zofran Inj) 4 mg IVP Q8H PRN PRN Reason: Nausea/Vomiting Last Admin: 08/21/18 20:49 Dose: 4 mg Sucralfate (Carafate Oral Susp) 1 gm PO ACBD [facility] Last Admin: 08/24/18 17:42 Dose: 1 gm Thiamine HCl (Vitamin B1 Tab) 100 mg PO DAILY [facility] Last Admin: 08/24/18 09:12 Dose: Not Given Tramadol HCl (Ultram) 50 mg PO TID PRN PRN Reason: Pain, severe (8-10) Last Admin: 08/24/18 21:23 Dose: 50 mg Trazodone HCl (Desyrel) 50 mg PO HS PRN PRN Reason: Insomnia - Labs Labs: 08/23/18 07:10 08/23/18 07:10 PT 18.3 SECONDS (9.7-12.2) H 08/21/18 07:07 INR 1.7 08/21/18 07:07 APTT 38 SECONDS (21-34) H 08/21/18 07:07 - Head Exam Head Exam: ATRAUMATIC - Eye Exam Eye Exam: Normal appearance - ENT Exam ENT Exam: Mucous Membranes Dry - Respiratory Exam Respiratory Exam: NORMAL BREATHING PATTERN - Cardiovascular Exam Cardiovascular Exam: +S1, +S2 - GI/Abdominal Exam GI & Abdominal Exam: Normal Bowel Sounds Assessment and Plan (1) Thrombocytopenia Assessment & Plan: bone marrow suppression from alcohol likely thrombopoietin dysregulation from liver disease transfuse plt if bleeding and plt < 50,000 Status: Acute (2) Coagulopathy Assessment & Plan: liver disease s/p FFP transfusion likely also nutritional component; s/p vit k Status: Acute (3) Anemia Assessment & Plan: blood loss no iron/b12/folate deficiency chronic disease Status: Acute
--- NOTE | 2018-08-24 22:52 | CP.PCM.PN ---
Subjective - Date & Time of Evaluation Date of Evaluation: 08/24/18 Time of Evaluation: 19:00 - Subjective Subjective: Had fall this morning. Objective - Vital Signs/Intake and Output Vital Signs (last 24 hours): Temp Pulse Resp BP Pulse Ox 97.9 F 85 20 106/66 95 08/24/18 16:03 08/24/18 16:03 08/24/18 16:03 08/24/18 16:03 08/24/18 16:03 Intake and Output: 08/24/18 08/25/18 18:59 06:59 Intake Total 1340 Balance 1340 - Medications Medications: Current Medications Famotidine (Pepcid) 40 mg PO DAILY [facility] Lorazepam (Ativan) 1 mg IVP Q4H PRN PRN Reason: Symptoms of alcohol withdrawl Metoclopramide HCl (Reglan) 5 mg IVP Q6H [facility] Last Admin: 08/24/18 18:57 Dose: 5 mg Multivitamins (Hexavitamin) 1 tab PO DAILY [facility] Last Admin: 08/24/18 09:12 Dose: Not Given Neomycin Sulfate (Neomycin Tab) 500 mg PO ACBHS [facility] Last Admin: 08/24/18 21:23 Dose: 500 mg Ondansetron HCl (Zofran Inj) 4 mg IVP Q8H PRN PRN Reason: Nausea/Vomiting Last Admin: 08/21/18 20:49 Dose: 4 mg Sucralfate (Carafate Oral Susp) 1 gm PO ACBD [facility] Last Admin: 08/24/18 17:42 Dose: 1 gm Thiamine HCl (Vitamin B1 Tab) 100 mg PO DAILY [facility] Last Admin: 08/24/18 09:12 Dose: Not Given Tramadol HCl (Ultram) 50 mg PO TID PRN PRN Reason: Pain, severe (8-10) Last Admin: 08/24/18 21:23 Dose: 50 mg Trazodone HCl (Desyrel) 50 mg PO HS PRN PRN Reason: Insomnia - Labs Labs: 08/23/18 07:10 08/23/18 07:10 PT 18.3 SECONDS (9.7-12.2) H 08/21/18 07:07 INR 1.7 08/21/18 07:07 APTT 38 SECONDS (21-34) H 08/21/18 07:07 - Head Exam Head Exam: ATRAUMATIC - Eye Exam Eye Exam: Normal appearance - ENT Exam ENT Exam: Mucous Membranes Dry - Respiratory Exam Respiratory Exam: NORMAL BREATHING PATTERN - Cardiovascular Exam Cardiovascular Exam: +S1, +S2 - GI/Abdominal Exam GI & Abdominal Exam: Normal Bowel Sounds Assessment and Plan (1) Thrombocytopenia Assessment & Plan: bone marrow suppression from alcohol likely thrombopoietin dysregulation from liver disease transfuse plt if bleeding and plt < 50,000 Status: Acute (2) Coagulopathy Assessment & Plan: liver disease s/p FFP transfusion likely also nutritional component; s/p vit k Status: Acute (3) Anemia Assessment & Plan: blood loss no iron/b12/folate deficiency chronic disease Status: Acute
[2018-08-25 05:59] LABS: BASO % 0.6 % (0.0-2.0); EOS # 0.1 K/uL (0.0-0.7); EOS % 1.6 % (0.0-4.0); HEMOGLOBIN 8.7 g/dL (12.0-18.0); LYMPH # 1.2 K/uL (1.0-4.3); LYMPH % 23.3 % (20.0-40.0); MEAN CELL VOLUME 114.7 fL (80.0-94.0); MEAN CORPUSCULAR HEMOGLOBIN 40.8 pg (27.0-31.0); MEAN CORPUSCULAR HGB CONC 35.5 g/dL (33.0-37.0); MEAN PLATELET VOLUME 9.9 fL (7.2-11.7); MONO # 0.9 K/uL (0.0-0.8); MONO % 18.1 % (0.0-10.0); NEUT # 2.8 K/uL (1.8-7.0); NEUT % 56.4 % (50.0-75.0); NRBC % 0.3 % (0.0-2.0); RBC 2.13 Mil/uL (4.40-5.90); RED CELL DISTRIBUTION WIDTH 18.9 % (11.5-14.5); WHITE BLOOD COUNT 4.9 K/uL (4.8-10.8)
[2018-08-25 06:16] LABS: BLOOD UREA NITROGEN 5 mg/dL (9-20); GFR NON-AFRICAN AMERICAN > 60
[2018-08-25] MEDS: Sucralfate 1 gm/10 ml Oral Susp UD PO SCH ×2 (08:28→18:03)
[2018-08-25] MEDS ORDERED: Potassium Chloride 20 mEq ER Tab PO ONE ×2 (10:00→14:00)
[2018-08-25] MEDS: Multiple Vitamins Tab PO SCH (11:14)
--- NOTE | 2018-08-25 11:34 | PN ---
DATE: 08/24/2018 SUBJECTIVE: The patient is feeling better. He is less anxious, more alert. His coagulation profile is H and H is stable. No epistaxis. No nausea or vomiting. He is tolerating diet. He is afebrile. No shortness of breath. He denies any nausea or vomiting. No cough. PHYSICAL EXAMINATION: LUNGS: Clear. No rales. No rhonchi. CVS: S1 and S2 regular. ABDOMEN: Right upper quadrant tenderness, enlarged liver. ASSESSMENT: 1. Alcoholic liver disease. 2. Epistaxis due to coagulopathy. 3. Coagulopathy. 4. Dehydration. PLAN: Continue current medications. Monitor the patient. Néstor Vanessa MD
[2018-08-25 15:10] VITALS: BP 130/83; PULSE 76; TEMP 98.9; O2SAT 95
--- NOTE | 2018-08-25 17:02 | CP.PCM.PN ---
Objective - Vital Signs/Intake and Output Vital Signs (last 24 hours): Temp Pulse Resp BP Pulse Ox 98.9 F 76 20 130/83 95 08/25/18 15:08 08/25/18 15:08 08/25/18 15:08 08/25/18 15:08 08/25/18 15:08 Intake and Output: 08/25/18 08/25/18 06:59 18:59 Intake Total 870 240 Balance 870 240 - Medications Medications: Current Medications Famotidine (Pepcid) 40 mg PO DAILY [facility] Last Admin: 08/25/18 11:15 Dose: 40 mg Lorazepam (Ativan) 1 mg IVP Q4H PRN PRN Reason: Symptoms of alcohol withdrawl Metoclopramide HCl (Reglan) 5 mg IVP Q6H [facility] Last Admin: 08/25/18 14:01 Dose: 5 mg Multivitamins (Hexavitamin) 1 tab PO DAILY [facility] Last Admin: 08/25/18 11:14 Dose: 1 tab Neomycin Sulfate (Neomycin Tab) 500 mg PO ACS [facility] Last Admin: 08/25/18 08:29 Dose: 500 mg Ondansetron HCl (Zofran Inj) 4 mg IVP Q8H PRN PRN Reason: Nausea/Vomiting Last Admin: 08/21/18 20:49 Dose: 4 mg Sucralfate (Carafate Oral Susp) 1 gm PO ACBD [facility] Last Admin: 08/25/18 08:28 Dose: 1 gm Thiamine HCl (Vitamin B1 Tab) 100 mg PO DAILY [facility] Last Admin: 08/25/18 11:15 Dose: 100 mg Tramadol HCl (Ultram) 50 mg PO TID PRN PRN Reason: Pain, severe (8-10) Last Admin: 08/25/18 12:03 Dose: 50 mg Trazodone HCl (Desyrel) 50 mg PO HS PRN PRN Reason: Insomnia - Labs Labs: 08/25/18 05:43 08/25/18 05:43 PT 18.3 SECONDS (9.7-12.2) H 08/21/18 07:07 INR 1.7 08/21/18 07:07 APTT 38 SECONDS (21-34) H 08/21/18 07:07 Assessment and Plan - Assessment and Plan (Free Text) Assessment: Patient admitted with alcohol withdrawal, GI bleed, seen and examined, awake, alert, sleepy but arousable. No acute pain or distress. Discussed with DR Vanessa , plan to discharge home today. Advised to follow up with PMD in 1 week.
== END 2018-08-25 20:44 | disposition home or self-care (01) | DRG 397 ==
LOC: C.ER 22:25 → C.9E 23:41 → C.5S 08-20 01:15 → C.3T 08-20 01:15
PROVIDERS: ADMIT Internal Medicine; ATTEND Internal Medicine
PROC: 0DB88ZX Excision of Small Intestine, Via Natural or Artificial Opening Endoscopic, Diagnostic (ICD-10-PCS; 2018-08-21)
PROC: 30233K1 Transfusion of Nonautologous Frozen Plasma into Peripheral Vein, Percutaneous Approach (ICD-10-PCS; principal; 2018-08-21 10:30)
PROC: 0DBM8ZX Excision of Descending Colon, Via Natural or Artificial Opening Endoscopic, Diagnostic (ICD-10-PCS; 2018-08-24)
DX: D69.6 Thrombocytopenia, unspecified (principal); D50.0 Iron deficiency anemia secondary to blood loss (chronic); K70.31 Alcoholic cirrhosis of liver with ascites; D68.8 Other specified coagulation defects; R04.0 Epistaxis; E11.9 Type 2 diabetes mellitus without complications; I10 Essential (primary) hypertension; J34.2 Deviated nasal septum; K76.0 Fatty (change of) liver, not elsewhere classified; R19.5 Other fecal abnormalities; Y90.8 Blood alcohol level of 240 mg/100 ml or more; F10.220 Alcohol dependence with intoxication, uncomplicated; F17.210 Nicotine dependence, cigarettes, uncomplicated; K57.30 Diverticulosis of large intestine without perforation or abscess without bleeding; K26.9 Duodenal ulcer, unspecified as acute or chronic, without hemorrhage or perforation

== ENCOUNTER 2018-08-28 07:50 | Inpatient (IN) | payer OTHER ==
[2018-08-28 07:50] VITALS: BMI 37.3
--- NOTE | 2018-08-28 08:23 | C.PDOC ---
History Of Present Illness 57 y/o male, with Hx of alcohol abuse, and alcoholic cirrhosis, presents to ED c/o bilateral leg swelling and pain. Pt was recently discharged from the hospital, he was seen here for nose bleed. Otherwise, denies weakness, numbness, or other associated symptoms. Time Seen by Provider: 08/28/18 07:52 Chief Complaint (Nursing): Lower Extremity Problem/Injury History Per: Patient History/Exam Limitations: no limitations Past Medical History Reviewed: Historical Data, Nursing Documentation, Vital Signs Vital Signs: Last Vital Signs Temp 98.5 F 08/28/18 07:57 Pulse 95 H 08/28/18 07:57 Resp 20 08/28/18 07:57 BP 116/74 08/28/18 07:57 Pulse Ox 95 08/28/18 07:57 - Medical History PMH: HTN, Peripheral Edema Denies: Chronic Kidney Disease - [facility] DETOXIFICATION SERVICES FOR SUBSTANCE ABUSE TREATMENT (07/14/17) EXCISION OF DESCENDING COLON, ENDO, DIAGN (08/19/18) EXCISION OF SMALL INTESTINE, ENDO, DIAGN (08/19/18) TRANSFUSE NONAUT FROZEN PLASMA IN PERIPH VEIN, PERC (08/19/18) Family History: States: Unknown Family Hx - Social History Hx Alcohol Use: Yes Hx Substance Use: Yes - Immunization History Hx Tetanus Toxoid Vaccination: No Hx Influenza Vaccination: No Hx Pneumococcal Vaccination: No Review Of Systems Except As Marked, All Systems Reviewed And Found Negative. Constitutional: Negative for: Fever, Chills Cardiovascular: Negative for: Chest Pain Respiratory: Negative for: Shortness of Breath Musculoskeletal: Positive for: Leg Pain Neurological: Negative for: Weakness, Numbness Physical Exam - Physical Exam Appears: Non-toxic, No Acute Distress Skin: Normal Color, Warm, Dry Head: Atraumatic, Normacephalic Eye(s): bilateral: Normal Inspection Oral Mucosa: Moist Cardiovascular: Rhythm Regular Respiratory: Normal Breath Sounds, No Rales, No Rhonchi, No Wheezing Gastrointestinal/Abdominal: Soft, No Tenderness, Distention, No Guarding, No Rebound Extremity: Normal ROM, Tenderness (bilateral lower legs), Pedal Edema, Calf Tenderness (bilateral), Capillary Refill (less than 2 seconds), No Deformity, Swelling (bilateral lower legs) Pulses: Left Dorsalis Pedis: Normal, Right Dorsalis Pedis: Normal Neurological/Psych: Oriented x3, Normal Speech, Normal Motor, Normal Sensation ED Course And Treatment - Laboratory Results Result Diagrams: 08/28/18 08:24 08/28/18 08:24 Lab Interpretation: Abnormal ECG: Interpreted By Me ECG Rhythm: Sinus Rhythm, Nonspecific Changes ECG Interpretation: No Acute Changes Rate From EC O2 Sat by Pulse Oximetry: 95 (RA) Pulse Ox Interpretation: Normal Progress Note: Patient treated with tramadol. doppler LE (-) DVT. On re- evaluation ambulating Reassessment Condition: Improved - Physician Consult Information Physician Contacted: Néstor Vanessa Outcome Of Conversation: admit Medical Decision Making Medical Decision Making: Plan: Blood work Urinalysis Venous Duplex Bilateral lower extremities EKG Disposition Discussed With Dr.: Néstor Vanessa Doctor Will See Patient In The: Hospital Counseled Patient/Family Regarding: Studies Performed, Diagnosis, Need For Followup - Disposition Disposition: HOSPITALIZED Disposition Time: 14:30 Condition: STABLE - POA Present On Arrival: None - Clinical Impression Clinical Impression: Leg edema, Abnormal liver enzymes, Coagulopathy - PA / 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 - Scribe Statement The provider has reviewed the documentation as recorded by the Scribe KP All medical record entries made by the Scribe were at my direction and personally dictated by me. I have reviewed the chart and agree that the record accurately reflects my personal performance of the history, physical exam, medical decision making, and the department course for this patient. I have also personally directed, reviewed, and agree with the discharge instructions and disposition.
[2018-08-28 08:28] LABS: BASO # 0.2 K/uL (0.0-0.2); BASO % 2.2 % (0.0-2.0); EOS # 0.1 K/uL (0.0-0.7); EOS % 1.6 % (0.0-4.0); HEMOGLOBIN 9.9 g/dL (12.0-18.0); LYMPH # 1.7 K/uL (1.0-4.3); LYMPH % 21.2 % (20.0-40.0); MEAN CORPUSCULAR HEMOGLOBIN 40.1 pg (27.0-31.0); MEAN CORPUSCULAR HGB CONC 35.7 g/dL (33.0-37.0); MONO # 1.1 K/uL (0.0-0.8); MONO % 14.3 % (0.0-10.0); NEUT # 4.8 K/uL (1.8-7.0); NEUT % 60.7 % (50.0-75.0); NRBC % 0.1 % (0.0-2.0); RBC 2.46 Mil/uL (4.40-5.90); RED CELL DISTRIBUTION WIDTH 18.4 % (11.5-14.5)
[2018-08-28 08:30] LABS: MEAN CELL VOLUME 112.5 fL (80.0-94.0); WHITE BLOOD COUNT 7.9 K/uL (4.8-10.8)
[2018-08-28 08:36] LABS: INR 1.5; PROTHROMBIN TIME 16.3 SECONDS (9.7-12.2)
[2018-08-28 08:41] LABS: ALB/GLOB RATIO 0.8 (1.0-2.1); ALBUMIN 2.9 g/dL (3.5-5.0); ALT/SGPT 61 U/L (21-72); AST/SGOT 205 U/L (17-59); BLOOD UREA NITROGEN 2 mg/dL (9-20); CALCIUM 8.3 mg/dl (8.6-10.4); GFR NON-AFRICAN AMERICAN > 60
[2018-08-28 08:50] LABS: B-TYPE NATRIURETIC PEPTIDE 520 pg/mL (0-900)
--- NOTE | 2018-08-28 13:55 | VASCLAB ---
Date of service: 08/28/2018 PROCEDURE: Lower Extremity Venous Duplex Exam. HISTORY: pain PRIORS: None. TECHNIQUE: Bilateral common femoral, femoral, popliteal and posterior tibial, peroneal and great saphenous veins were evaluated. Flow was assessed with color Doppler, compressibility, assessment of phasic flow and augmentation response. Report prepared by cardiac/vascular sonographer. FINDINGS: RIGHT: 1. Common Femoral Vein: 1.1. Compressibility - Fully compressible: Thrombus - None : Flow - Phasic: Augmentation -Normal: Reflux - None. 2. Femoral Vein: 2.1. Compressibility - Fully compressible: Thrombus - None : Flow - Phasic: Augmentation -Normal: Reflux - None. 3. Popliteal Vein: 3.1. Compressibility - Fully compressible: Thrombus - None : Flow - Phasic: Augmentation -Normal: Reflux - None. 4. Posterior Tibial Vein: 4.1. Compressibility - Fully compressible: Thrombus - None: Flow - Phasic: Augmentation -Normal: Reflux - None. 5. Peroneal Vein: 5.1. Compressibility - Fully compressible: Thrombus - None: Flow - Phasic: Augmentation -Normal: Reflux - None. 6. Great Saphenous Vein: 6.1. Compressibility - Fully compressible: Thrombus - None: Flow - Phasic: Augmentation - Normal: Reflux - YES. LEFT: 1. Common Femoral Vein: 1.1. Compressibility - Fully compressible: Thrombus - None: Flow - Phasic: Augmentation -Normal: Reflux - None. 2. Femoral Vein: 2.1. Compressibility - Fully compressible: Thrombus - None: Flow - Phasic: Augmentation -Normal: Reflux - None. 3. Popliteal Vein: 3.1. Compressibility - Fully compressible: Thrombus - None : Flow - Phasic: Augmentation -Normal: Reflux - None. 4. Posterior Tibial Vein: 4.1. Compressibility - Fully compressible: Thrombus - None: Flow - Phasic: Augmentation -Normal: Reflux - None. 5. Peroneal Vein: 5.1. Compressibility - Fully compressible: Thrombus - None: Flow - Phasic: Augmentation -Normal: Reflux - None. 6. Great Saphenous Vein: 6.1. Compressibility - Fully compressible: Thrombus - None: Flow - Phasic: Augmentation - Normal: Reflux - None. OTHER FINDINGS: Right: None significant. Left: None significant. IMPRESSION: Right: No evidence of deep or superficial vein thrombosis of the right lower extremity. Severe valvular incompetence of the right greater saphenous vein. Left: No evidence of deep or superficial vein thrombosis of the left lower extremity. Normal valve function noted of the left side.
[2018-08-28] MEDS ORDERED: Multivitamin (MVI) 10 ML, Folic Acid 1 MG, Thiamine 100 MG in Dextrose 5%/0.45% NS 1,00... IV SCH (14:45)
[2018-08-28] MEDS ORDERED: Potassium Chloride 20 mEq/15 ml LIQ UD PO ONE (15:00)
[2018-08-28] MEDS ORDERED: Potassium Chloride 20 mEq ER Tab PO ONE (15:10)
[2018-08-28 18:26] LABS: SQUAMOUS EPITHIAL 1 /hpf (0-5); URINE BILIRUBIN 1+ (NEGATIVE); URINE BLOOD NEGATIVE (NEGATIVE); URINE CLARITY Clear (Clear); URINE COLOR Amber (YELLOW); URINE GLUCOSE (UA) NORMAL (Normal); URINE LEUKOCYTE ESTERASE NEG Leu/uL (Negative); URINE PROTEIN NEGATIVE (NEGATIVE)
--- NOTE | 2018-08-28 20:39 | CARD ---
APPROVED REPORT Date of service: 08/28/2018 EKG Measurement Heart [id number] <Conclusion> Normal sinus rhythm Cannot rule out Anterior infarct, age undetermined Abnormal ECG
[2018-08-29 01:29] VITALS: RESP 20
[2018-08-29 07:29] LABS: BASO # 0.1 K/uL (0.0-0.2); BASO % 1.7 % (0.0-2.0); EOS # 0.1 K/uL (0.0-0.7); EOS % 1.3 % (0.0-4.0); HEMOGLOBIN 8.6 g/dL (12.0-18.0); LYMPH # 1.6 K/uL (1.0-4.3); LYMPH % 24.3 % (20.0-40.0); MEAN CORPUSCULAR HEMOGLOBIN 39.7 pg (27.0-31.0); MEAN CORPUSCULAR HGB CONC 35.4 g/dL (33.0-37.0); MONO # 1.2 K/uL (0.0-0.8); MONO % 17.6 % (0.0-10.0); NEUT # 3.6 K/uL (1.8-7.0); NEUT % 55.1 % (50.0-75.0); NRBC % 0.1 % (0.0-2.0); RBC 2.17 Mil/uL (4.40-5.90); WHITE BLOOD COUNT 6.6 K/uL (4.8-10.8)
[2018-08-29 07:43] LABS: BLOOD UREA NITROGEN 5 mg/dL (9-20); CALCIUM 7.8 mg/dl (8.6-10.4); GFR NON-AFRICAN AMERICAN > 60
[2018-08-29] MEDS ORDERED: Potassium Chloride 20 mEq ER Tab PO ONE ×2 (10:00→22:00)
[2018-08-29] MEDS: Multiple Vitamins Tab PO SCH (10:18)
[2018-08-29] MEDS: Pantoprazole 40 mg EC Tab PO SCH (10:19)
[2018-08-29 12:31] LABS: ALB/GLOB RATIO 0.7 (1.0-2.1); ALBUMIN 2.4 g/dL (3.5-5.0); ALT/SGPT 51 U/L (21-72); AST/SGOT 192 U/L (17-59); BILIRUBIN,DIRECT 2.9 mg/dL (0.0-0.4)
[2018-08-29] MEDS: Magnesium Sulfate 1 gm in D5W 1 GM/100 ML BAG IVPB SCH ×2 (14:50→16:23)
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
--- NOTE | 2018-08-30 05:45 | HP ---
CHIEF COMPLAINT: Leg swelling, bilateral, x2 days. HISTORY OF PRESENT ILLNESS: This is a 57-year-old white male who is alcoholic with alcoholic liver disease and he was recently hospitalized. The patient came back today. He has been taking medications, but he started drinking again and now he has bilateral lower extremity leg swelling. He denies any injury to the leg. He denies any pain. He has some tingling and numbness. He denies any fever, chills, rigors. He denies any abdominal pain. He has nausea, no vomiting. He has discomfort in his epigastric area. He denies any cough, sore throat, or runny nose. He denies any history of polyuria, polydipsia, polyphagia. He denies any history of hematuria or pyuria. He denies any sneezing, itchy eyes, itchy nose, and he denies any rectal bleeding. PAST MEDICAL HISTORY: Alcoholic liver disease, coagulopathy, depression, hypertension. SOCIAL HISTORY: He smokes. He is alcoholic. HOME MEDICATIONS: Trazodone, Catapres, vitamin D1, Protonix, extra vitamin. PHYSICAL EXAMINATION: GENERAL: A middle-aged male in no distress. VITAL SIGNS: Blood pressure 121/79, pulse 52, respiratory rate 20, temperature 98.1. SKIN: No bruises. No purpura. HEENT: Atraumatic and normocephalic. Positive pallor. Negative jaundice. Extraocular movements are intact. NECK: Supple. No JVD. No lymph nodes. No thyromegaly. No carotid bruits. CHEST WALL: Bilateral symmetrical expansion. CVS: S1 and S2, regular. ABDOMEN: Soft and nontender. Bowel sounds are positive. RECTAL: No masses. EXTREMITIES: +2 pitting edema. 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 Cranial nerves II to XII are normal. Power 5/5 x4. Plantars are downgoing. ASSESSMENT: 1. Lower extremity edema, most likely due to portal hypertension from an enlarged liver. 2. Alcoholism. 3. Coagulopathy. 4. Anemia, rule out gastrointestinal bleed. PLAN: Continue current medication. Monitor patient. Néstor Vanessa MD [facility] # [id number]
[2018-08-30] MEDS: Pantoprazole 40 mg EC Tab PO SCH (09:42)
[2018-08-30] MEDS: Multiple Vitamins Tab PO SCH (09:42)
--- NOTE | 2018-08-30 20:51 | CP.PCM.PN ---
Subjective - Date & Time of Evaluation Date of Evaluation: 08/30/18 Time of Evaluation: 20:51 - Subjective Subjective: dictated Objective - Vital Signs/Intake and Output Vital Signs (last 24 hours): Temp Pulse Resp BP Pulse Ox 98.2 F 75 20 101/67 94 L 08/30/18 15:10 08/30/18 15:10 08/30/18 15:10 08/30/18 15:10 08/30/18 15:10 Intake and Output: 08/30/18 08/31/18 18:59 06:59 Intake Total 200 Balance 200 - Medications Medications: Current Medications Clonidine HCl (Catapres) 0.1 mg PO BID [facility] Last Admin: 08/30/18 17:55 Dose: 0.1 mg Furosemide (Lasix) 40 mg PO DAILY [facility] Last Admin: 08/30/18 09:43 Dose: 40 mg Gabapentin (Neurontin) 100 mg PO TID [facility] Last Admin: 08/30/18 17:55 Dose: 100 mg Potassium Chloride (Potassium Chloride 20 Meq/100 Ml) 20 meq in 100 mls @ 50 mls/hr IVPB Q2 [facility] Stop: 08/31/18 03:59 Magnesium Sulfate/Dextrose (Magnesium Sulfate 1 Gm/100 Ml D5w) 1 gm in 100 mls @ 200 mls/hr IVPB Q30M [facility] Stop: 08/30/18 22:59 Influenza Virus Vaccine (Fluzone Quad 7033-0005) 60 mcg IM .ONCE ONE Stop: 08/31/18 10:01 Lactulose (Enulose) 20 gm PO DAILY [facility] Last Admin: 08/30/18 09:42 Dose: 20 gm Lorazepam (Ativan) 1 mg PO Q6 PRN PRN Reason: Symptoms of alcohol withdrawl Multivitamins (Hexavitamin) 1 tab PO DAILY [facility] Last Admin: 08/30/18 09:42 Dose: 1 tab Neomycin Sulfate (Neomycin Tab) 500 mg PO Q6 [facility] Last Admin: 08/30/18 17:55 Dose: 500 mg Pantoprazole Sodium (Protonix Ec Tab) 40 mg PO DAILY [facility] Last Admin: 08/30/18 09:42 Dose: 40 mg Spironolactone (Aldactone) 25 mg PO BID [facility] Last Admin: 08/30/18 17:55 Dose: 25 mg Thiamine HCl (Vitamin B1 Tab) 100 mg PO DAILY [facility] Last Admin: 08/30/18 09:42 Dose: 100 mg Tramadol HCl (Ultram) 50 mg PO TID PRN PRN Reason: Pain, severe (8-10) Last Admin: 08/30/18 09:43 Dose: 50 mg Trazodone HCl (Desyrel) 50 mg PO HS PRN PRN Reason: Insomnia Last Admin: 08/28/18 21:29 Dose: 50 mg - Labs Labs: 08/29/18 07:20 08/29/18 07:20 PT 16.3 SECONDS (9.7-12.2) H 08/28/18 08:24 INR 1.5 08/28/18 08:24 APTT 37 SECONDS (21-34) H 08/28/18 08:24
[2018-08-30] MEDS: Magnesium Sulfate 1 gm in D5W 1 GM/100 ML BAG IVPB SCH ×4 (21:05→22:31)
--- NOTE | 2018-08-31 02:50 | PN ---
DATE: 08/30/2018 SUBJECTIVE: The patient is less edematous. She is afebrile. No nausea or vomiting. PHYSICAL EXAMINATION: VITAL SIGNS: Blood pressure 101/67, pulse 75, respiratory rate 20, temperature 98.2. LUNGS: Clear. CVS: S1, S2 regular. ABDOMEN: Soft. ASSESSMENT: 1. Drop in hemoglobin, rule out gastrointestinal bleed. 2. Hypokalemia. 3. Coagulopathy. 4. Alcoholic liver disease. PLAN: Continue diuretics. Potassium supplementation. GI evaluation. Néstor Vanessa MD
[2018-08-31] MEDS ORDERED: Influenza Vaccine 60 MCG/0.5 ML SYR (3 yr & up) IM ONE ×2 (10:00→13:30)
[2018-08-31] MEDS: Pantoprazole 40 mg EC Tab PO SCH (10:42)
[2018-08-31] MEDS: Multiple Vitamins Tab PO SCH (10:42)
[2018-08-31 12:22] LABS: BLOOD UREA NITROGEN 7 mg/dL (9-20); CALCIUM 8.5 mg/dl (8.6-10.4); GFR NON-AFRICAN AMERICAN > 60
--- NOTE | 2018-08-31 14:32 | PN ---
DATE: 08/31/2018 LOCATION: 357, bed A. SUBJECTIVE: This is a 57-year-old male seen initially for GI consultation on 08/30/2018 as requested by the admitting medical team, reexamined again today with intermittent period of abdominal pain, mild nausea, as well as more edematous changes of the lower extremities with tenderness. The patient also had a complaint of epistaxis before, which was resolved. The patient denied any actual chest pain, palpitation, significant shortness of breath, chills, or fever. The most recent lab results showed low hemoglobin and hematocrit, but normal white blood cells and normal platelet count with low sodium, low BUN and creatinine, low calcium with low magnesium, but increased liver function test, especially AST and total bilirubin with low albumin and low total protein. Duplex scan of the lower extremities report is seen with severe valvular incompetence of the right greater saphenous vein. PHYSICAL EXAMINATION: GENERAL: A 57-year-old male. VITAL SIGNS: Afebrile with pulse of 82, respiratory rate 20 to 22, blood pressure of 130/72. HEENT: Showed pale, dry mucous membrane with bilateral icteric sclerae. LUNGS: Few scattered crepitation with decreased air entry at bases. HEART: Positive S1 and S2. ABDOMEN: Soft with mild distention with mild generalized tenderness. No mass or organomegaly. No rebound tenderness or guarding. EXTREMITIES: With lower extremity edematous changes. No clubbing or cyanosis. NEUROLOGICAL: No reported new neurological deficits, sensory or motor; however, the patient had moments of being forgetful. IMPRESSION: 1. Alcoholism with alcoholic liver disease. 2. Malnutrition with hypoalbuminemia and lower extremities edema syndrome. 3. Known history of hypertension. 4. Recent endoscopic evaluation of the upper and lower gastrointestinal tract without evidence of esophageal varices, but peptic ulcer disease with left-sided colitis and internal hemorrhoids. 5. Electrolyte imbalance, most likely secondary to above. SUGGESTIONS: 1. Agree with your plan. 2. Vascular Surgery consultation. 3. Correct any underlying electrolyte imbalance and any underlying coagulopathy. 4. Further recommendation to follow. Garrett Lei MD [facility] # [id number]
--- NOTE | 2018-08-31 22:11 | CP.PCM.PN ---
Objective - Vital Signs/Intake and Output Vital Signs (last 24 hours): Temp Pulse Resp BP Pulse Ox 99.5 F 92 H 20 124/73 95 08/31/18 16:01 08/31/18 16:01 08/31/18 16:01 08/31/18 18:11 08/31/18 16:01 Intake and Output: 08/31/18 09/01/18 18:59 06:59 Intake Total 1040 Balance 1040 - Medications Medications: Current Medications Clonidine HCl (Catapres) 0.1 mg PO BID [facility] Last Admin: 08/31/18 18:11 Dose: 0.1 mg Furosemide (Lasix) 40 mg PO BID [facility] Last Admin: 08/31/18 18:11 Dose: 40 mg Gabapentin (Neurontin) 100 mg PO TID [facility] Last Admin: 08/31/18 18:11 Dose: 100 mg Lactulose (Enulose) 20 gm PO DAILY [facility] Last Admin: 08/31/18 10:42 Dose: 20 gm Lorazepam (Ativan) 1 mg PO Q6 PRN PRN Reason: Symptoms of alcohol withdrawl Last Admin: 08/31/18 00:25 Dose: 1 mg Multivitamins (Hexavitamin) 1 tab PO DAILY [facility] Last Admin: 08/31/18 10:42 Dose: 1 tab Pantoprazole Sodium (Protonix Ec Tab) 40 mg PO DAILY [facility] Last Admin: 08/31/18 10:42 Dose: 40 mg Potassium Chloride (K-Dur 20 Meq Er Tab) 40 meq PO DAILY [facility] Spironolactone (Aldactone) 25 mg PO BID [facility] Last Admin: 08/31/18 18:10 Dose: 25 mg Thiamine HCl (Vitamin B1 Tab) 100 mg PO DAILY [facility] Last Admin: 08/31/18 10:43 Dose: 100 mg Tramadol HCl (Ultram) 50 mg PO TID PRN PRN Reason: Pain, severe (8-10) Last Admin: 08/31/18 13:32 Dose: 50 mg Trazodone HCl (Desyrel) 50 mg PO HS PRN PRN Reason: Insomnia Last Admin: 08/28/18 21:29 Dose: 50 mg - Labs Labs: 08/29/18 07:20 08/31/18 11:45 PT 16.3 SECONDS (9.7-12.2) H 08/28/18 08:24 INR 1.5 08/28/18 08:24 APTT 37 SECONDS (21-34) H 08/28/18 08:24
[2018-09-01 01:12] VITALS: PULSE 74
[2018-09-01 07:40] LABS: BLOOD UREA NITROGEN 9 mg/dL (9-20); CALCIUM 8.3 mg/dl (8.6-10.4); GFR NON-AFRICAN AMERICAN > 60
[2018-09-01 08:07] VITALS: TEMP 98.1; O2SAT 95
[2018-09-01] MEDS ORDERED: Potassium Chloride 20 mEq ER Tab PO SCH (10:00)
[2018-09-01] MEDS: Pantoprazole 40 mg EC Tab PO SCH (10:00)
[2018-09-01] MEDS: Multiple Vitamins Tab PO SCH (10:00)
[2018-09-01 10:03] VITALS: BP 116/70
[2018-09-01 10:59] LABS: BASO # 0.1 K/uL (0.0-0.2); BASO % 1.1 % (0.0-2.0); EOS # 0.1 K/uL (0.0-0.7); EOS % 0.8 % (0.0-4.0); HEMOGLOBIN 9.2 g/dL (12.0-18.0); LYMPH # 1.7 K/uL (1.0-4.3); LYMPH % 15.9 % (20.0-40.0); MEAN CELL VOLUME 112.9 fL (80.0-94.0); MEAN CORPUSCULAR HEMOGLOBIN 39.7 pg (27.0-31.0); MEAN CORPUSCULAR HGB CONC 35.2 g/dL (33.0-37.0); MEAN PLATELET VOLUME 8.9 fL (7.2-11.7); MONO % 9.7 % (0.0-10.0); NEUT # 7.6 K/uL (1.8-7.0); NEUT % 72.5 % (50.0-75.0); NRBC % 0.1 % (0.0-2.0); RBC 2.33 Mil/uL (4.40-5.90); RED CELL DISTRIBUTION WIDTH 19.3 % (11.5-14.5)
[2018-09-01 11:04] LABS: WHITE BLOOD COUNT 10.5 K/uL (4.8-10.8)
[2018-09-01 11:10] LABS: INR 1.6; PROTHROMBIN TIME 17.2 SECONDS (9.7-12.2)
--- NOTE | 2018-09-01 12:53 | PN ---
DATE: 09/01/2018 LOCATION: 357, bed A. SUBJECTIVE: This is a 57-year-old male seen and examined early in rounds without significant clinical changes, with a complaint of lower abdominal and lower extremities pain on and off. No reported active bleeding, with intermittent period of nausea with dyspepsia. The entire chart is reviewed including but not limited to most recent lab and radiology study results, current and the previous medication list, current and the previous medical events and the latest blood results still pending. However, the patient reported to have drop of his hemoglobin and hematocrit with persistent elevation of liver function test with the latest total bilirubin 5 with low albumin and low total protein. PHYSICAL EXAMINATION: GENERAL: A 57-year-old male appeared to be more awake, alert. VITAL SIGNS: Afebrile with pulse 78, respiratory rate 20 to 22, blood pressure of 130/70. HEENT: Showed pale, dry oral mucous membrane. Bilateral icteric sclerae. LUNGS: Few scattered crepitation. Decreased air entry at bases. HEART: Positive S1 and S2. ABDOMEN: Soft with slight generalized tenderness. No mass or organomegaly. No rebound tenderness or guarding. EXTREMITIES: Without significant clubbing, cyanosis or edema. NEUROLOGICAL: No reported new neurological deficits, sensory or motor. IMPRESSION: 1. Known history of alcoholism with alcoholic liver disease. 2. Abnormal liver function tests secondary to above. 3. Mild hepatic encephalopathy. 4. Known history of hypertension. 5. Anemia, that could be secondary to chronic disease. No evidence of active bleeding in the recent endoscopic evaluation of the gastrointestinal tract. It has to be mentioned that the patient had upper and lower endoscopy recently including colonoscopy with mild diverticulosis, colitis and internal hemorrhoids as well as evidence of peptic ulcer disease. SUGGESTIONS: 1. Continue current management. 2. Repeat ammonia level. 3. Guaiac all the stool daily x3. 4. Further recommendation to follow. Garrett Lei MD
--- NOTE | 2018-09-01 17:04 | CP.PCM.PN ---
Subjective - Date & Time of Evaluation Date of Evaluation: 09/01/18 Time of Evaluation: 11:00 - Subjective Subjective: alert, awake, denies any pain or distress. 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 Seen and examined. Alert, oriented, denies abdominal pain or distress. Has walker for ambulation. Leg edema is improving. Refused to go ro rehab as advised by PT. Discussed with DR Vanessa, plan to discharge home today. Advised to participate at the AA meetings or outpatient drug rehab. Advised to follow up in the office in 1 week.
--- NOTE | 2018-09-01 22:22 | CP.PCM.DIS ---
Provider - Provider Date of Admission: 08/28/18 13:30 Attending physician: Néstor Vanessa MD [facility] Course - Lab Results Lab Results: Most Recent Lab Values WBC 10.5 K/uL (4.8-10.8) D 09/01/18 10:53 RBC 2.33 Mil/uL (4.40-5.90) L 09/01/18 10:53 Hgb 9.2 g/dL (12.0-18.0) L 09/01/18 10:53 Hct 26.3 % (35.0-51.0) L 09/01/18 10:53 MCV 112.9 fL (80.0-94.0) H 09/01/18 10:53 MCH 39.7 pg (27.0-31.0) H 09/01/18 10:53 MCHC 35.2 g/dL (33.0-37.0) 09/01/18 10:53 RDW 19.3 % (11.5-14.5) H 09/01/18 10:53 Plt Count 254 K/uL (130-400) 09/01/18 10:53 MPV 8.9 fL (7.2-11.7) 09/01/18 10:53 Neut % (Auto) 72.5 % (50.0-75.0) 09/01/18 10:53 Lymph % (Auto) 15.9 % (20.0-40.0) L 09/01/18 10:53 [place] % (Auto) 9.7 % (0.0-10.0) 09/01/18 10:53 Eos % (Auto) 0.8 % (0.0-4.0) 09/01/18 10:53 Baso % (Auto) 1.1 % (0.0-2.0) 09/01/18 10:53 Neut # (Auto) 7.6 K/uL (1.8-7.0) H 09/01/18 10:53 Lymph # (Auto) 1.7 K/uL (1.0-4.3) 09/01/18 10:53 [place] # (Auto) 1.0 K/uL (0.0-0.8) H 09/01/18 10:53 Eos # (Auto) 0.1 K/uL (0.0-0.7) 09/01/18 10:53 Baso # (Auto) 0.1 K/uL (0.0-0.2) 09/01/18 10:53 Differential Comment 08/28/18 08:24 PT 17.2 SECONDS (9.7-12.2) H 09/01/18 10:53 INR 1.6 09/01/18 10:53 APTT 36 SECONDS (21-34) H 09/01/18 10:53 Sodium 134 mmol/L (132-148) 09/01/18 06:27 Potassium 4.3 mmol/L (3.6-5.2) 09/01/18 06:27 Chloride 97 mmol/L (98-107) L 09/01/18 06:27 Carbon Dioxide 28 mmol/L (22-30) 09/01/18 06:27 Anion Gap 14 (10-20) 09/01/18 06:27 BUN 9 mg/dL (9-20) 09/01/18 06:27 Creatinine 1.0 mg/dL (0.8-1.5) 09/01/18 06:27 Est GFR ( Amer) > 60 09/01/18 06:27 Est GFR (Non-Af Amer) > 60 09/01/18 06:27 Random Glucose 95 mg/dL (75-110) 09/01/18 06:27 Calcium 8.3 mg/dl (8.6-10.4) L 09/01/18 06:27 Phosphorus 2.6 mg/dL (2.5-4.5) 08/29/18 07:20 Magnesium 2.1 mg/dL (1.6-2.3) 08/31/18 11:45 Ferritin 629.0 ng/mL 09/01/18 10:53 Total Bilirubin 5.0 mg/dL (0.2-1.3) H 08/29/18 07:20 Direct Bilirubin 2.9 mg/dL (0.0-0.4) H 08/29/18 07:20 AST 192 U/L (17-59) H 08/29/18 07:20 ALT 51 U/L (21-72) 08/29/18 07:20 Alkaline Phosphatase 167 U/L (38-126) H D 08/29/18 07:20 Ammonia 92 umol/L (9-33) H D 09/01/18 10:53 NT-Pro-B Natriuret Pep 520 pg/mL (0-900) 08/28/18 08:24 Total Protein 5.9 g/dL (6.3-8.3) L 08/29/18 07:20 Albumin 2.4 g/dL (3.5-5.0) L 08/29/18 07:20 Globulin 3.5 gm/dL (2.2-3.9) 08/29/18 07:20 Albumin/Globulin Ratio 0.7 (1.0-2.1) L 08/29/18 07:20 Alpha Fetoprotein 2.7 ng/mL (0.0-7.5) 09/01/18 10:53 Vitamin B12 768 pg/mL (239-931) 09/01/18 10:53 Urine Color Rosalee (YELLOW) 08/28/18 18:19 Urine Clarity Clear (Clear) 08/28/18 18:19 Urine pH 5.0 (5.0-8.0) 08/28/18 18:19 Ur Specific [place] 1.015 (1.003-1.030) 08/28/18 18:19 Urine Protein Negative mg/dL (NEGATIVE) 08/28/18 18:19 Urine Glucose (UA) Normal mg/dL (Normal) 08/28/18 18:19 Urine Ketones Negative mg/dL (NEGATIVE) 08/28/18 18:19 Urine Blood Negative (NEGATIVE) 08/28/18 18:19 Urine Nitrate Negative (NEGATIVE) 08/28/18 18:19 Urine Bilirubin 1+ (NEGATIVE) H 08/28/18 18:19 Urine Urobilinogen 4.0 mg/dL (0.2-1.0) 08/28/18 18:19 Ur Leukocyte Esterase Neg [place]/uL (Negative) 08/28/18 18:19 Urine WBC (Auto) 2 /hpf (0-5) 08/28/18 18:19 Urine RBC (Auto) < 1 /hpf (0-3) 08/28/18 18:19 Ur Squamous Epith Cells 1 /hpf (0-5) 08/28/18 18:19 Hyaline Casts 6-10 /lpf (0-2) H 08/28/18 18:19 Alcohol, Quantitative 247 mg/dl (0-10) H 08/28/18 08:24 Discharge Plan - Discharge Medications Prescriptions: Spironolactone [Aldactone] 50 mg PO BID #60 tab Lactulose [Enulose] 20 gm PO DAILY #500 ml Multivitamins [Hexavitamin] 1 tab PO DAILY #30 tab - Follow Up Plan Condition: STABLE Disposition: HOME/ ROUTINE Instructions: Cirrhosis, Dependent Edema (DC), What to Do When Your INR Is Too High , Lactulose, Spironolactone, Vitamins (Multiple/Oral), Prothrombin Time (PT) Test and International Normalized Ratio (INR) Additional Instructions: Discharge home as per , follow up in office in 1 week advised to avoid alcohol/ AA meetings Referrals: Néstor Vanessa MD [Staff Provider] -
--- NOTE | 2018-09-02 01:21 | PN ---
DATE: 08/31/2018 SUBJECTIVE: The patient, Efrain, is having some edema. He is not withdrawing. He is afebrile. PHYSICAL EXAMINATION: VITAL SIGNS: Blood pressure 124/73, pulse 92, respiratory rate 20, temperature 99.5. LUNGS: Clear. CARDIOVASCULAR SYSTEM: S1 and S2, regular. ABDOMEN: Soft. ASSESSMENT: 1. Chronic liver disease, rule out cirrhosis. 2. Anemia due to epistaxis. PLAN: Continue current medications. Diuretics. Intake and output. Monitor patient. Néstor Vanessa MD
--- NOTE | 2018-09-02 03:12 | DS ---
DATE: 09/01/2018 SUBJECTIVE: The patient, Efrain, is for discharge. He is feeling better. He has edema. His ammonia level is high but he is awake, alert, oriented x3. We will prescribe him lactulose for home. He will also get Aldactone. No fever. No chills. No nausea or vomiting. Tolerating diet. Awake, alert. He agreed to stop alcohol in future. PHYSICAL EXAMINATION: VITAL SIGNS: BP 116/70, pulse 74, respiratory rate 20, temperature 98.1. LUNGS: Clear. CARDIOVASCULAR SYSTEM: S1 and S2, regular. ABDOMEN: Soft. ASSESSMENT: 1. Alcoholic liver disease, possible cirrhosis. 2. Thrombocytopenia, coagulopathy. 3. Alcoholism. PLAN: Discharge the patient. Monitor the patient. Néstor Vanessa MD
--- NOTE | 2018-09-04 04:48 | CON ---
DATE: 08/30/[address] Lei to Dr. Rasheeda Palm HISTORY OF PRESENT ILLNESS: I was called for GI consultation by the admitting MD. The patient was seen and fully examined on 08/30/2018 in the presence of the medical staff in the floor. A short handwriting consultation sheet left in the chart at the time of my GI consultation on 08/30/2018. The entire chart is reviewed including but not limited to most recent lab and radiology study results, current and previous medication list, current and previous medical events, allergy to medication list as well as all the available current and previous medical records. This is a 57-year-old male with known history of alcoholism, excessive alcohol intake recently, was admitted to the hospital with generalized weakness and malaise, poor oral intake with mild upper extremities fine tremors, also loss of appetite, but no reported active bleeding during this admission. No reported actual chest pain, palpitation, significant shortness of breath. The patient reported no active bleeding at the time of the admission. The patient had been complaining of nasal bleeding recently. It has to be mentioned that this patient was admitted to the hospital a few days ago, and upper and lower endoscopy were done during that admission, please see my official report. After being admitted to the hospital, it was found the patient to have again lower hemoglobin and hematocrit with thrombocytopenia with mildly elevated blood glucose level. PAST MEDICAL HISTORY: Including mainly, but not limited to, 1. Alcoholism. 2. Alcoholic liver disease. 3. Hypertension. 4. Peptic ulcer disease. FAMILY HISTORY: Unknown. SOCIAL HISTORY: Positive for excessive alcohol intake and substance abuse, mainly smoking marijuana. CURRENT MEDICATIONS: Post the admission, medication lists were reviewed. PHYSICAL EXAMINATION: GENERAL: A 57-year-old male. VITAL SIGNS: Afebrile with pulse of 96 at the time he was seen by me, respiratory rate 20 to 24, blood pressure of 108/66. HEENT: Showed pale dry oral mucous membrane. Bilateral icteric sclerae. NECK: Lymph nodes, no lymphadenitis or lymphadenopathy. CARDIOPULMONARY: Heart, positive S1 and S2 with increased rate. LUNGS: Few scattered crepitation with decreased air entry at bases. ABDOMEN: Mildly obese, mildly distended with generalized tenderness. No other mass or organomegaly. No rebound tenderness or guarding, but generalized abdominal tenderness. RECTAL EXAMINATION: The patient refused. EXTREMITIES: Lower extremities with mild edematous changes, with mild upper extremities fine tremors. NEURO: No reported new neurological deficits, sensory or motor. ASSESSMENT: 1. Alcoholism. 2. Alcoholic liver disease. 3. Jaundice secondary to above. 4. Abnormal liver function tests secondary to above. 5. Anemia with reexacerbation of peptic ulcer disease. 6 To rule out an early phase of acute alcoholic hepatitis and/or possible acute alcoholic pancreatitis. SUGGESTIONS: 1. Agree with your plan. 2. Serum lipase, amylase level. 3. Peripheral hyperalimentation. 4. Repeat cancer markers including alpha-fetoprotein and CEA. 5. Ativan IV. 6. Proton pump inhibitors IV. 7. Antireflux measure. 8. Guaiac all the stools daily x3. 9. Further recommendation to follow. Thank you for letting me participate in your patient's case management. Garrett Lei MD
== END 2018-09-01 16:08 | disposition home or self-care (01) | DRG 280 ==
LOC: C.ER 07:50 → C.9E 13:30 → C.3T 16:00
PROVIDERS: ADMIT Internal Medicine; ATTEND Internal Medicine
DX: K70.30 Alcoholic cirrhosis of liver without ascites (principal); K76.6 Portal hypertension; D68.9 Coagulation defect, unspecified; K72.90 Hepatic failure, unspecified without coma; E46 Unspecified protein-calorie malnutrition; D69.6 Thrombocytopenia, unspecified; K51.50 Left sided colitis without complications; D50.0 Iron deficiency anemia secondary to blood loss (chronic); E87.6 Hypokalemia; I10 Essential (primary) hypertension; F10.20 Alcohol dependence, uncomplicated; D63.8 Anemia in other chronic diseases classified elsewhere; K64.8 Other hemorrhoids; K57.90 Diverticulosis of intestine, part unspecified, without perforation or abscess without bleeding; K27.9 Peptic ulcer, site unspecified, unspecified as acute or chronic, without hemorrhage or perforation; F17.200 Nicotine dependence, unspecified, uncomplicated

== ENCOUNTER 2018-09-07 16:08 | Inpatient (IN) | payer OTHER ==
--- NOTE | 2018-09-07 19:28 | C.PDOC ---
History Of Present Illness 57-year-old male presents to the ED complaining of shortness of breath and back pain, worsened today. Of note patient was recently admitted for similar complaints, and discharged home 1 week ago. On arrival, patient is speaking in complete sentences. No other complaints offered. Patient denies any fever, chills, nausea, vomiting. Time Seen by Provider: 09/07/18 19:25 Chief Complaint (Nursing): Lower Extremity Problem/Injury History Per: Patient History/Exam Limitations: no limitations Onset/Duration Of Symptoms: Days Current Symptoms Are (Timing): Still Present Past Medical History Reviewed: Historical Data, Nursing Documentation, Vital Signs Vital Signs: Last Vital Signs Temp 97.7 F 09/07/18 16:27 Pulse 67 09/07/18 16:27 Resp 18 09/07/18 16:27 BP 127/79 09/07/18 16:27 Pulse Ox 98 09/07/18 16:27 - Medical History PMH: HTN, Peripheral Edema Denies: Chronic Kidney Disease - [facility] Procedures DETOXIFICATION SERVICES FOR SUBSTANCE ABUSE TREATMENT (07/14/17) EXCISION OF DESCENDING COLON, ENDO, DIAGN (08/19/18) EXCISION OF SMALL INTESTINE, ENDO, DIAGN (08/19/18) TRANSFUSE NONAUT FROZEN PLASMA IN PERIPH VEIN, PERC (08/19/18) Family History: States: No Known Family Hx - Social History Hx Alcohol Use: Yes Hx Substance Use: Yes - Immunization History Hx Tetanus Toxoid Vaccination: No Hx Influenza Vaccination: No Hx Pneumococcal Vaccination: No Review Of Systems Constitutional: Negative for: Fever, Chills Eyes: Negative for: Vision Change ENT: Negative for: Throat Pain Cardiovascular: Negative for: Chest Pain, Palpitations Respiratory: Positive for: Shortness of Breath Gastrointestinal: Negative for: Nausea, Vomiting, Diarrhea Musculoskeletal: Positive for: Back Pain Neurological: Negative for: Weakness, Numbness Psych: Negative for: Anxiety Physical Exam - Physical Exam Appears: Non-toxic, No Acute Distress Skin: Warm, Dry Head: Normacephalic Eye(s): bilateral: Scleral Icterus Oral Mucosa: Moist Neck: Trachea Midline, Supple Chest: Symmetrical Cardiovascular: Rhythm Regular Respiratory: Rales (scattered rales bilaterally), No Rhonchi, No Wheezing Gastrointestinal/Abdominal: Soft, No Tenderness, Distention (abdomen distended, + fluid wave), No Guarding, Ascites Back: No CVA Tenderness, Paraspinal Tenderness (to paralumbar region) Extremity: No Tenderness, Pedal Edema Extremity: Bilateral: Atraumatic, Normal Color And Temperature, Other (Pedal edema to bilateral lower extremities) Pulses: Left Dorsalis Pedis: Normal, Right Dorsalis Pedis: Normal Neurological/Psych: Oriented x3 Gait: Steady ED Course And Treatment - Laboratory Results Result Diagrams: 09/07/18 19:56 09/07/18 19:56 ECG: Interpreted By Me, Viewed By Me ECG Rhythm: Sinus Rhythm (70), Nonspecific Changes O2 Sat by Pulse Oximetry: 98 (RA) Pulse Ox Interpretation: Normal - Radiology CXR: Interpreted by Me, Viewed By Me CXR Interpretation: No: Infiltrates, Fracture, Pnemothorax Progress Note: Blood work and urine ordered, including coag panel and lipase. EKG and CXR ordered and reviewed. Administered 30 mg Toradol IM. Disposition Discussed With : Néstor Vanessa Comment: accepted the pt on his service and took over the care at 9:25 PM Doctor Will See Patient In The: Hospital Counseled Patient/Family Regarding: Studies Performed, Diagnosis - Disposition Disposition: HOSPITALIZED Disposition Time: 19:26 Condition: GUARDED Forms: [employer] (Amharic) - Clinical Impression Clinical Impression: Leg edema, KIRKPATRICK (dyspnea on exertion), Anemia, Jaundice, Alcoholic cirrhosis of liver with ascites - Scribe Statement The provider has reviewed the documentation as recorded by the Augie Levy Provider Attestation: All medical record entries made by the Carmitaibbhavin were at my direction and personally dictated by me. I have reviewed the chart and agree that the record accurately reflects my personal performance of the history, physical exam, medical decision making, and the department course for this patient. I have also personally directed, reviewed, and agree with the discharge instructions and disposition. Decision To Admit - Pt Status Changed To: Hospital Disposition Of: Inpatient - Admit Certification Admit to Inpatient:: After my assessment, the patient will require hospitalization for at least two midnights. This is because of the severity of symptoms shown, intensity of services needed, and/or the medical risk in this patient being treated as an outpatient. - InPatient: Physician Admission Certification: I certify that this patient requires 2 or more midnights of care for the following reason:: After my assessment, the patient will require hospitalization for at least two midnights. This is because of the severity of symptoms shown, intensity of services needed, and/or the medical risk in this patient being treated as an outpatient. - . Bed Request Type: Regular Admitting Physician: Néstor Vanessa Patient Diagnosis: Leg edema, KIRKPATRICK (dyspnea on exertion), Anemia, Jaundice, Alcoholic cirrhosis of liver with ascites
[2018-09-07 20:03] LABS: BASO # 0.2 K/uL (0.0-0.2); BASO % 1.8 % (0.0-2.0); EOS # 0.1 K/uL (0.0-0.7); EOS % 1.1 % (0.0-4.0); HEMOGLOBIN 10.6 g/dL (12.0-18.0); LYMPH # 1.8 K/uL (1.0-4.3); MEAN CELL VOLUME 112.5 fL (80.0-94.0); MEAN CORPUSCULAR HEMOGLOBIN 38.2 pg (27.0-31.0); MEAN PLATELET VOLUME 9.2 fL (7.2-11.7); MONO # 1.2 K/uL (0.0-0.8); MONO % 12.6 % (0.0-10.0); NEUT # 6.3 K/uL (1.8-7.0); NEUT % 65.5 % (50.0-75.0); NRBC % 0.1 % (0.0-2.0); RBC 2.77 Mil/uL (4.40-5.90); RED CELL DISTRIBUTION WIDTH 18.2 % (11.5-14.5); WHITE BLOOD COUNT 9.6 K/uL (4.8-10.8)
[2018-09-07 20:15] LABS: INR 1.6; PROTHROMBIN TIME 17.1 SECONDS (9.7-12.2)
[2018-09-07 20:29] LABS: ALB/GLOB RATIO 0.8 (1.0-2.1); ALBUMIN 3.7 g/dL (3.5-5.0); ALT/SGPT 44 U/L (21-72); AST/SGOT 180 U/L (17-59); BLOOD UREA NITROGEN 9 mg/dL (9-20); CALCIUM 9.1 mg/dl (8.6-10.4); GFR NON-AFRICAN AMERICAN > 60; LIPASE 148 U/L (23-300)
[2018-09-07 20:36] LABS: B-TYPE NATRIURETIC PEPTIDE 714 pg/mL (0-900)
[2018-09-07 21:25] VITALS: RESP 20
[2018-09-07 23:15] VITALS: BMI 33.6
[2018-09-08] MEDS ORDERED: Phytonadione 10 mg/ml Inj (Adult) SC STA (08:38)
[2018-09-08] MEDS: Pantoprazole 40 mg EC Tab PO SCH (09:40)
[2018-09-08] MEDS: Multiple Vitamins Tab PO SCH (09:42)
[2018-09-08] MEDS ORDERED: Enoxaparin 30 mg Syringe SC SCH (10:00)
--- NOTE | 2018-09-08 10:29 | RAD ---
HISTORY: leg edema COMPARISON: Chest x-ray performed 07/14/17 TECHNIQUE: Chest, one view. FINDINGS: Examination limited by habitus and hypoinflation. The patient's chin obscures evaluation of the lung apices. LUNGS: No focal consolidation. Please note that chest x-ray has limited sensitivity for the detection of pulmonary masses. PLEURA: No significant pleural effusion identified. No definite pneumothorax . CARDIOVASCULAR: Cardiomegaly. OSSEOUS STRUCTURES: Degenerative changes. VISUALIZED UPPER ABDOMEN: Elevation of the right hemidiaphragm. OTHER FINDINGS: None. IMPRESSION: Cardiomegaly.
--- NOTE | 2018-09-08 13:15 | PN ---
DATE: 09/08/2018 LOCATION: 353, bed A. SUBJECTIVE: This is a 57-year-old male seen initially for GI consultation on 09/07/2018 as requested by the admitting medical staff, reexamined again today, appeared to be somewhat awake, alert with period of being forgetful, but reoriented on and off. The entire chart is reviewed including but not limited to the most recent lab and radiology study results, current and the previous medication list, current and the previous medical events, and the patient is still complaining of increased abdominal girth, generalized edematous changes, especially both lower extremities, but no reported active bleeding, chest pain or palpitation, but some epistaxis reported. Most recent lab results done yesterday showed hemoglobin of 10.6, hematocrit 31.1 with normal white blood cells and platelet counts with increased total bilirubin, increased ASA due to the patient's alcoholism with ammonia level 45. PHYSICAL EXAMINATION: GENERAL: A 57-year-old male. VITAL SIGNS: Afebrile with pulse of 66, respiratory rate 20 to 22, blood pressure of 132/84. HEENT: Showed pale, dry oral mucous membrane. Bilateral icteric sclerae. LUNGS: Few scattered crepitation. Breathing sounds are present bilaterally. HEART: Positive S1 and S2 with increased rate. ABDOMEN: Soft with moderate distention, positive for ascites with mild generalized tenderness. No mass or organomegaly. No rebound tenderness or guarding. EXTREMITIES: With generalized edematous changes. No clubbing or cyanosis. NEUROLOGICAL: Mild occasional both hands fine tremors were seen. No other significant new neurological deficits, sensory or motor. On record, the patient had recently upper and lower endoscopy last month in a very recent admission. Please see my endoscopy reports. IMPRESSION: 1. Alcoholism with alcoholic liver disease. 2. Abnormal liver function tests with jaundice secondary to above. 3. Refractory ascites due to liver cirrhosis, most likely. 4. Known history of hypertension. Anemia secondary to above. Re-exacerbation of peptic ulcer disease. 5. Mild hepatic encephalopathy. 6. To rule out acute alcoholic recurrent pancreatitis. SUGGESTIONS: 1. Agree with your plan. 2. Serum lipase and amylase level. 3. Repeat abdominal paracentesis guided ultrasound by the IR staff. 4. Correct any underlying electrolyte imbalance. 5. Correct any underlying coagulopathy. 6. Proton pump inhibitors IV. 7. Neomycin p.o. 8. Further recommendations to follow. The patient will need vitamin K subcu due to his increased PT 17.1. We will follow up closely with you. Garrett Lei MD
--- NOTE | 2018-09-08 17:35 | US ---
Date of service: 09/08/2018 PROCEDURE: Limited abdominal ultrasound HISTORY: r/o ascites COMPARISON: 08/20/2018 TECHNIQUE: Standard protocol for this study/examination. FINDINGS: No intra-abdominal ascites. IMPRESSION: No significant intra-abdominal ascites identified.
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
--- NOTE | 2018-09-09 06:10 | HP ---
CHIEF COMPLAINT: Abdominal distention, shortness of breath, and pain. HISTORY OF PRESENT ILLNESS: This is a 57-year-old white male with history of alcoholism, alcoholic liver disease with alcoholic hepatitis, coagulopathy, prior GI bleed, obesity who is alcoholic, and according to him, he is not drinking since his last discharge few days ago, in his usual of health. He is ambulatory and dependent in activities of daily living. He was hospitalized twice in the last two to three weeks with epistaxis initially, found to be due to coagulopathy, thrombocytopenia, and then second time, the patient was admitted with edema of the leg. The patient came in again because of abdominal distention, abdominal pain, back pain, leg edema, generalized weakness, difficulty walking. He denies any dyspnea on exertion, orthopnea, no PND. He denies any chest pain. No nausea, vomiting. The patient is dyspneic and has dyspnea on exertion. There is no history of trauma, fall, loss of consciousness. The patient denies any seizure like activity. He has tingling and numbness in the feet. His abdomen is distention. He denies any bruising right now. He denies any history of polyuria, polydipsia, polyphagia. He denies any history of hematuria, pyuria. PAST MEDICAL HISTORY: Positive for alcoholism, alcoholic liver disease. SOCIAL HISTORY: He smokes, he drinks, and according to him, he just quit. MEDICATIONS: Current medications at home, he is supposed to be on thiamine, multivitamin, trazodone, clonidine, Aldactone, Protonix, multivitamin, and lactulose. PHYSICAL EXAMINATION: GENERAL: A middle-aged male, in moderate acute distress because of abdominal distention. VITAL SIGNS: Blood pressure 134/64, pulse 76, respiratory rate 20, temperature 98.4. SKIN: No bruises. No purpura. No petechiae. HEENT: Atraumatic, normocephalic. Positive pallor. Negative jaundice. Extraocular movements are intact. NECK: Supple. No JVD. No lymph node. No thyromegaly. No carotid bruit. CHEST WALL: Bilateral symmetrical expansion. LUNGS: Clear. No rales. No rhonchi. CVS: S1, S2 regular. ABDOMEN: Soft, nontender. Bowel sounds are positive. EXTREMITIES: +2 pitting edema. BUSINESS INFO CONSULTANT: Awake, alert, and oriented x3. ASSESSMENT: 1. Alcoholic liver disease with edema. 2. Massive ascites with pain paracentesis. 3. Alcoholism. PLAN: Admit. Monitor. Detailed orders written. Seen and examined. Néstor Vanessa MD
--- NOTE | 2018-09-09 08:05 | CARD ---
APPROVED REPORT Date of service: 09/07/2018 EKG Measurement Heart [id number] <Conclusion> Normal sinus rhythm Rightward axis Borderline ECG
[2018-09-09] MEDS: Pantoprazole 40 mg EC Tab PO SCH (09:36)
[2018-09-09] MEDS: Multiple Vitamins Tab PO SCH (09:37)
--- NOTE | 2018-09-09 12:52 | PN ---
DATE: 09/09/2018 LOCATION: 353, bed A. SUBJECTIVE: This is a 57-year-old male seen and examined in rounds without significant clinical changes, but still has intermittent period of epistaxis with very small amount of trace of fresh blood. The patient is still extremities fine tremors, mainly in both hands. The entire chart is reviewed including but not limited to the most recent lab and radiology study results, current and the previous medication list, current and the previous medical events, and old record. The patient's CEA level is still elevated to 8.7. Today's lab results still pending. The most recently done ultrasound of the abdomen report is seen. PHYSICAL EXAMINATION: GENERAL: A 57-year-old male. VITAL SIGNS: Afebrile with pulse of 88, respiratory 20-22, blood pressure 130/72. HEENT: Showed pale dry oral mucous membrane. Bilateral icteric sclerae. LUNGS: Few scattered mild crepitation. Decreased air entry at bases. HEART: Positive S1 and S2. ABDOMEN: Soft with mild generalized tenderness. No mass or organomegaly. No rebound tenderness or guarding. EXTREMITIES: With edematous changes, especially in the lower extremities but no clubbing or cyanosis. NEUROLOGIC: No reported new neurological deficits, sensory or motor. IMPRESSION: 1. Alcoholism. 2. Alcoholic liver disease. 3. Abnormal liver function test with jaundice secondary to above. 4. Mild hepatic encephalopathy, improving gradually. 5. Known history of hypertension. 6. Anemia secondary to above with re-exacerbation of peptic ulcer disease. 7. Rule out possible acute alcoholic pancreatitis. SUGGESTIONS: 1. Continue current management. 2. Repeat serum lipase, amylase level. Currently liquid p.o. 3. Antireflux measure. 4. Further recommendation to follow. Garrett Lei MD
--- NOTE | 2018-09-09 23:58 | CP.PCM.PN ---
Subjective - Date & Time of Evaluation Date of Evaluation: 09/09/18 Time of Evaluation: 08:25 - Subjective Subjective: dictated Objective - Vital Signs/Intake and Output Vital Signs (last 24 hours): Temp Pulse Resp BP Pulse Ox 97.4 F L 85 20 138/80 97 09/09/18 16:00 09/09/18 16:00 09/09/18 16:00 09/09/18 17:38 09/09/18 16:00 - Medications Medications: Current Medications Enoxaparin Sodium (Lovenox) 30 mg SC DAILY [facility] Furosemide (Lasix) 40 mg PO BID [facility] Last Admin: 09/09/18 17:38 Dose: 40 mg Lactulose (Enulose) 20 gm PO DAILY [facility] Last Admin: 09/09/18 09:37 Dose: 20 gm Morphine Sulfate (Morphine) 2 mg SC Q4 PRN PRN Reason: Pain, severe (8-10) Last Admin: 09/09/18 20:30 Dose: 2 mg Multivitamins (Hexavitamin) 1 tab PO DAILY [facility] Last Admin: 09/09/18 09:37 Dose: 1 tab Neomycin Sulfate (Neomycin Tab) 500 mg PO Q6H [facility] Last Admin: 09/09/18 21:27 Dose: 500 mg Pantoprazole Sodium (Protonix Ec Tab) 40 mg PO DAILY [facility] Last Admin: 09/09/18 09:36 Dose: 40 mg Spironolactone (Aldactone) 50 mg PO BID [facility] Last Admin: 09/09/18 17:38 Dose: 50 mg Thiamine HCl (Vitamin B1 Tab) 100 mg PO DAILY [facility] Last Admin: 09/09/18 09:37 Dose: 100 mg Trazodone HCl (Desyrel) 50 mg PO HS PRN PRN Reason: Insomnia - Labs Labs: 09/07/18 19:56 09/07/18 19:56 PT 17.1 SECONDS (9.7-12.2) H 09/07/18 19:56 INR 1.6 09/07/18 19:56
--- NOTE | 2018-09-10 06:36 | PN ---
DATE: 09/10/2018 SUBJECTIVE: The patient has less edema, less abdominal distention. He still has some pain in both hands. He denies any fever or chills. No cough. No sore throat. The patient has been seen by GI. PHYSICAL EXAMINATION: VITAL SIGNS: Blood pressure 138/80, pulse 85, respiratory rate 20, and temperature 97.4. LUNGS: Clear. No rales. No rhonchi. CVS: S1 and S2 regular. No heave. No thrill. ABDOMEN: Soft. Positive ascites. Positive fluid thrill. EXTREMITIES: +2 pitting edema. METAL SPRAYER: Awake, alert, and oriented x3. ASSESSMENT AND PLAN: Alcoholic liver disease. The patient has poor underlying portal hypertension due to swollen liver. The patient has ascites like edema. The patient is on diuretic, and he is tolerating well, and we will continue to monitor electrolytes and continue diuretics and pain medication on a p.r.n. basis. Néstor Vanessa MD
[2018-09-10 06:41] LABS: BASO # 0.1 K/uL (0.0-0.2); BASO % 0.9 % (0.0-2.0); EOS # 0.1 K/uL (0.0-0.7); HEMOGLOBIN 10.7 g/dL (12.0-18.0); LYMPH # 1.9 K/uL (1.0-4.3); LYMPH % 20.7 % (20.0-40.0); MEAN CORPUSCULAR HEMOGLOBIN 38.1 pg (27.0-31.0); MEAN CORPUSCULAR HGB CONC 34.3 g/dL (33.0-37.0); MEAN PLATELET VOLUME 8.8 fL (7.2-11.7); MONO # 1.2 K/uL (0.0-0.8); MONO % 12.4 % (0.0-10.0); NEUT # 6.1 K/uL (1.8-7.0); RBC 2.8 Mil/uL (4.40-5.90); RED CELL DISTRIBUTION WIDTH 17.6 % (11.5-14.5); WHITE BLOOD COUNT 9.4 K/uL (4.8-10.8)
[2018-09-10 07:43] LABS: ALB/GLOB RATIO 0.7 (1.0-2.1); ALBUMIN 3.5 g/dL (3.5-5.0); ALT/SGPT 42 U/L (21-72); AST/SGOT 200 U/L (17-59); BLOOD UREA NITROGEN 7 mg/dL (9-20); CALCIUM 9.1 mg/dl (8.6-10.4); GFR NON-AFRICAN AMERICAN > 60
[2018-09-10] MEDS: Pantoprazole 40 mg EC Tab PO SCH ×2 (10:00→15:32)
[2018-09-10] MEDS: Multiple Vitamins Tab PO SCH (10:00)
[2018-09-10] MEDS: Potassium Chloride 20 mEq ER Tab PO SCH ×2 (12:30→15:34)
--- NOTE | 2018-09-10 15:05 | PN ---
DATE: 09/10/2018 LOCATION: 353, bed A. SUBJECTIVE: This is a 57-year-old male seen and examined in rounds today with subsequent decrease of abdominal distention, lower extremity edema as well as less abdominal pain without any reported active bleeding; however, the patient is still complaining of both hands discomfort feeling. No chest pain or palpitation. No reported active bleeding or significant shortness of breath. The entire chart is reviewed including but not limited to the most recent lab and radiology study results, current and the previous medication list, current and the previous medical events. Today's lab showed hemoglobin of 10.7, hematocrit 31.1 with normal white blood cells and platelet count with AST 200, most likely secondary to his alcoholism with total bilirubin 5.1, alkaline phosphatase 137 with increased ammonia level to 115 for which neomycin should be given. CEA level reported to be 8.7 before. PHYSICAL EXAMINATION: GENERAL: A 57-year-old male. VITAL SIGNS: Afebrile with pulse of 84, respiratory rate 20 to 22, blood pressure 140/72. HEENT: Showed pale, dry oral mucous membrane. Bilateral icteric sclerae. LUNGS: Scattered crepitation. Decreased air entry at bases. HEART: Positive S1 and S2. ABDOMEN: Soft with mild distention, positive for ascites without mass or organomegaly. EXTREMITIES: With edematous changes, less than before without clubbing, cyanosis, but with slight very occasional both hands fine tremors. NEUROLOGICAL: No reported new neurological deficit, sensory or motor. IMPRESSION: 1. Alcoholism. 2. Alcoholic liver disease. 3. Abnormal liver function test with liver cirrhosis. 4. Jaundice secondary to above. 5. Known history of hypertension. 6. Hepatic encephalopathy. 7. Anemia, most likely secondary to above. 8. To rule out possible alcoholic hepatitis. SUGGESTIONS: 1. Agree with your plan. 2. Follow up in serum lipase and amylase level. 3. The patient may need lactulose enema. 4. Further recommendation to follow and increase induced diarrhea. Garrett Lei MD
[2018-09-10] MEDS ORDERED: Potassium Chloride 20 mEq/15 ml LIQ UD PO STA (22:55)
--- NOTE | 2018-09-10 22:56 | CP.PCM.PN ---
Subjective - Date & Time of Evaluation Date of Evaluation: 09/10/18 Time of Evaluation: 08:34 - Subjective Subjective: dictated Objective - Vital Signs/Intake and Output Vital Signs (last 24 hours): Temp Pulse Resp BP Pulse Ox 98.5 F 84 20 120/76 95 09/10/18 16:00 09/10/18 16:00 09/10/18 16:00 09/10/18 18:03 09/10/18 16:00 - Medications Medications: Current Medications Enoxaparin Sodium (Lovenox) 30 mg SC DAILY [facility] Furosemide (Lasix) 40 mg PO BID [facility] Last Admin: 09/10/18 18:03 Dose: 40 mg Lactulose (Enulose) 20 gm PO Q12 [facility] Morphine Sulfate (Morphine) 2 mg SC Q4 PRN PRN Reason: Pain, severe (8-10) Last Admin: 09/10/18 18:04 Dose: 2 mg Multivitamins (Hexavitamin) 1 tab PO DAILY [facility] Last Admin: 09/10/18 10:00 Dose: Not Given Neomycin Sulfate (Neomycin Tab) 500 mg PO Q6H [facility] Last Admin: 09/10/18 22:14 Dose: 500 mg Ondansetron HCl (Zofran Odt) 4 mg PO Q6H PRN PRN Reason: Nausea/Vomiting Last Admin: 09/10/18 21:09 Dose: 4 mg Pantoprazole Sodium (Protonix Ec Tab) 40 mg PO DAILY [facility] Last Admin: 09/10/18 15:32 Dose: 40 mg Potassium Chloride (K-Dur 20 Meq Er Tab) 20 meq PO DAILY [facility] Stop: 09/12/18 11:31 Last Admin: 09/10/18 15:34 Dose: 20 meq Spironolactone (Aldactone) 50 mg PO BID [facility] Last Admin: 09/10/18 17:54 Dose: 50 mg Thiamine HCl (Vitamin B1 Tab) 100 mg PO DAILY [facility] Last Admin: 09/10/18 15:32 Dose: 100 mg Trazodone HCl (Desyrel) 50 mg PO HS PRN PRN Reason: Insomnia - Labs Labs: 09/10/18 06:27 09/10/18 06:29 PT 17.1 SECONDS (9.7-12.2) H 09/07/18 19:56 INR 1.6 09/07/18 19:56
[2018-09-11 07:38] LABS: BLOOD UREA NITROGEN 5 mg/dL (9-20); CALCIUM 9.2 mg/dl (8.6-10.4); GFR NON-AFRICAN AMERICAN > 60
--- NOTE | 2018-09-11 09:10 | PN ---
DATE: 09/10/2018 SUBJECTIVE: Dino Zuniga is diuresing. His abdominal distention and leg swelling is down. Potassium is down to 3.5. He is afebrile. No shortness of breath. PHYSICAL EXAMINATION: VITAL SIGNS: Blood pressure 120/76, pulse 54, respiratory rate 20, and temperature 98.5. LUNGS: Clear. No rales. No rhonchi. CARDIOVASCULAR SYSTEM: S1 and S2, regular. No heave. No thrill. ABDOMEN: Soft and nontender. Bowel sounds are positive. EXTREMITIES: +2 pitting edema. MICROCOMPUTER TECHNICIAN: Awake, alert, and oriented x3. ASSESSMENT AND PLAN: 1. Edema , it is mostly due to alcoholic liver disease. 2. Alcoholic liver disease, rule out cirrhosis. 3. Coagulopathy, anemia. 4. Obesity. PLAN: Diuretics. Intake and output. Monitor the patient. Néstor Vanessa MD
[2018-09-11] MEDS: Multiple Vitamins Tab PO SCH (11:00)
[2018-09-11] MEDS: Potassium Chloride 20 mEq ER Tab PO SCH (11:00)
[2018-09-11] MEDS: Pantoprazole 40 mg EC Tab PO SCH (11:00)
--- NOTE | 2018-09-11 23:23 | CP.PCM.PN ---
Subjective - Date & Time of Evaluation Date of Evaluation: 09/11/18 Time of Evaluation: 08:38 - Subjective Subjective: dictated Objective - Vital Signs/Intake and Output Vital Signs (last 24 hours): Temp Pulse Resp BP Pulse Ox 97.5 F L 75 20 142/78 96 09/11/18 16:00 09/11/18 16:00 09/11/18 16:00 09/11/18 17:23 09/11/18 16:00 - Medications Medications: Current Medications Enoxaparin Sodium (Lovenox) 30 mg SC DAILY [facility] Furosemide (Lasix) 40 mg PO BID [facility] Last Admin: 09/11/18 17:23 Dose: 40 mg Lactulose (Enulose) 20 gm PO Q12 [facility] Last Admin: 09/11/18 21:52 Dose: 20 gm Morphine Sulfate (Morphine) 2 mg SC Q4 PRN PRN Reason: Pain, severe (8-10) Last Admin: 09/11/18 20:34 Dose: 2 mg Multivitamins (Hexavitamin) 1 tab PO DAILY [facility] Last Admin: 09/11/18 11:00 Dose: 1 tab Neomycin Sulfate (Neomycin Tab) 500 mg PO Q6H [facility] Last Admin: 09/11/18 20:32 Dose: 500 mg Ondansetron HCl (Zofran Odt) 4 mg PO Q6H PRN PRN Reason: Nausea/Vomiting Last Admin: 09/11/18 08:04 Dose: 4 mg Pantoprazole Sodium (Protonix Ec Tab) 40 mg PO DAILY [facility] Last Admin: 09/11/18 11:00 Dose: 40 mg Potassium Chloride (K-Dur 20 Meq Er Tab) 20 meq PO DAILY [facility] Stop: 09/12/18 11:31 Last Admin: 09/11/18 11:00 Dose: 20 meq Spironolactone (Aldactone) 50 mg PO BID [facility] Last Admin: 09/11/18 17:23 Dose: 50 mg Thiamine HCl (Vitamin B1 Tab) 100 mg PO DAILY [facility] Last Admin: 09/11/18 11:00 Dose: 100 mg Trazodone HCl (Desyrel) 50 mg PO HS PRN PRN Reason: Insomnia - Labs Labs: 09/10/18 06:27 09/11/18 06:46 PT 17.1 SECONDS (9.7-12.2) H 10/08/18 19:56 INR 1.6 09/07/18 19:56
[2018-09-12] MEDS: Multiple Vitamins Tab PO SCH (11:00)
[2018-09-12] MEDS: Potassium Chloride 20 mEq ER Tab PO SCH (11:00)
[2018-09-12] MEDS: Pantoprazole 40 mg EC Tab PO SCH (11:00)
--- NOTE | 2018-09-12 12:14 | PN ---
DATE: 09/12/2018 LOCATION: 352, bed A. SUBJECTIVE: This is a 57-year-old male seen and examined in rounds early today without significant clinical changes or reported active bleeding with intermittent period of abdominal pain, postprandial abdominal distention with a complaint of generalized weakness and malaise and mild increase of abdominal girth. No reported chest pain, palpitation. No significant increase of shortness of breath, chills or fever, but lower extremities edematous changes. The most recent lab results as well as the entire chart is reviewed. The patient still has low hemoglobin and hematocrit with low BUN and ammonia level of 74 with CEA to 8.7. Most recently done abdominal ultrasound reviewed. PHYSICAL EXAMINATION: GENERAL: A 57-year-old male. VITAL SIGNS: Afebrile with pulse of 84, respiratory 20 to 22, blood pressure 136/80. HEENT: Showed pale dry oral mucous membrane. Nonicteric sclerae. LUNGS: Few scattered crepitation. Decreased air entry at bases. HEART: Positive S1 and S2. ABDOMEN: Soft, mildly obese, mildly distended with small amount of ascites. No mass or organomegaly could be appreciated. EXTREMITIES: With lower extremity edematous changes. No clubbing or cyanosis. NEUROLOGIC: No reported new neurological deficits, sensory or motor. IMPRESSION: 1. Alcoholism with alcoholic liver disease. 2. Abnormal liver function tests due to above. 3. Mild hepatic encephalopathy with elevated ammonia level. 4. Anemia most likely secondary to chronic disease. 5. Recent history of peptic ulcer disease diagnosed by upper endoscopy. SUGGESTIONS: 1. Continue current management. 2. Increase lactulose dose until induced diarrhea, then repeat ammonia level. 3. Follow up cancer markers including alpha-fetoprotein. 4. Further recommendation to follow. Garrett Lei MD
[2018-09-12 12:15] LABS: BLOOD UREA NITROGEN 4 mg/dL (9-20); CALCIUM 9.2 mg/dl (8.6-10.4); GFR NON-AFRICAN AMERICAN > 60
--- NOTE | 2018-09-12 20:07 | CP.PCM.PN ---
Subjective - Date & Time of Evaluation Date of Evaluation: 09/12/18 Time of Evaluation: 08:39 - Subjective Subjective: dictated Objective - Vital Signs/Intake and Output Vital Signs (last 24 hours): Temp Pulse Resp BP Pulse Ox 98.4 F 82 20 128/84 98 09/12/18 08:00 09/12/18 08:00 09/12/18 08:00 09/12/18 17:08 09/12/18 08:00 Intake and Output: 09/12/18 09/13/18 18:59 06:59 Intake Total 260 Balance 260 - Medications Medications: Current Medications Enoxaparin Sodium (Lovenox) 30 mg SC DAILY [facility] Furosemide (Lasix) 40 mg PO BID [facility] Last Admin: 09/12/18 17:08 Dose: 40 mg Gabapentin (Neurontin) 100 mg PO TID [facility] Last Admin: 09/12/18 17:11 Dose: 100 mg Lactulose (Enulose) 20 gm PO DAILY [facility] Morphine Sulfate (Morphine) 2 mg SC Q4 PRN PRN Reason: Pain, severe (8-10) Last Admin: 09/12/18 16:51 Dose: 2 mg Multivitamins (Hexavitamin) 1 tab PO DAILY [facility] Last Admin: 09/12/18 11:00 Dose: 1 tab Neomycin Sulfate (Neomycin Tab) 500 mg PO Q6H [facility] Last Admin: 09/12/18 14:26 Dose: Not Given Ondansetron HCl (Zofran Odt) 4 mg PO Q6H PRN PRN Reason: Nausea/Vomiting Last Admin: 09/11/18 08:04 Dose: 4 mg Pantoprazole Sodium (Protonix Ec Tab) 40 mg PO DAILY [facility] Last Admin: 09/12/18 11:00 Dose: 40 mg Spironolactone (Aldactone) 50 mg PO BID [facility] Last Admin: 09/12/18 17:11 Dose: 50 mg Thiamine HCl (Vitamin B1 Tab) 100 mg PO DAILY [facility] Last Admin: 09/12/18 11:00 Dose: 100 mg Trazodone HCl (Desyrel) 50 mg PO HS PRN PRN Reason: Insomnia - Labs Labs: 09/10/18 06:27 09/12/18 11:34 PT 17.1 SECONDS (9.7-12.2) H 09/07/18 19:56 INR 1.6 09/07/18 19:56
[2018-09-13] MEDS: Multiple Vitamins Tab PO SCH (09:28)
[2018-09-13] MEDS: Pantoprazole 40 mg EC Tab PO SCH (09:28)
--- NOTE | 2018-09-13 11:04 | PN ---
DATE: 09/13/2018 LOCATION: 352, bed A. SUBJECTIVE: This is a 57-year-old male, seen and examined in rounds with intermittent period of mild abdominal pain and abdominal distention with postprandial abdominal discomfort with period of slight semi-confusion. The entire chart is reviewed including but not limited to most recent lab and radiology study results, current and the previous medication list, current and the previous medical events and today's lab results still pending. However, the latest blood workup showed ammonia level to be 74 with increased AST as well as total bilirubin of 5.1. PHYSICAL EXAMINATION: GENERAL: A 57-year-old male. VITAL SIGNS: Afebrile with pulse of 92, respiratory rate 20 to 22, blood pressure of 124/78. HEENT: Showed pale dry oral mucoid membrane. Bilateral icteric sclerae. LUNGS: Few scattered crepitation. Decreased air entry at bases. HEART: Positive S1 and S2. ABDOMEN: Soft though has mild distention with generalized tenderness, mildly obese. No mass or organomegaly. No rebound tenderness or guarding. IMPRESSION: 1. Alcoholism with alcoholic liver disease. 2. Jaundice with abnormal liver function tests, secondary to above. 3. Mild hepatic encephalopathy, slightly improving clinically and biochemically. 4. Anemia with re-exacerbation of peptic ulcer disease. SUGGESTIONS: 1. Continue current management. 2. Follow up on ammonia level. 3. Antireflux measures. Further recommendation to follow. Garrett Lei MD
--- NOTE | 2018-09-13 18:03 | CP.PCM.PN ---
Subjective - Date & Time of Evaluation Date of Evaluation: 09/13/18 Time of Evaluation: 08:41 - Subjective Subjective: dictated Objective - Vital Signs/Intake and Output Vital Signs (last 24 hours): Temp Pulse Resp BP Pulse Ox 98.3 F 87 20 130/80 96 09/13/18 08:00 09/13/18 08:00 09/13/18 08:00 09/13/18 17:45 09/13/18 08:00 Intake and Output: 09/13/18 09/13/18 06:59 18:59 Intake Total 400 300 Balance 400 300 - Medications Medications: Current Medications Enoxaparin Sodium (Lovenox) 30 mg SC DAILY [facility] Furosemide (Lasix) 40 mg PO BID [facility] Last Admin: 09/13/18 17:45 Dose: 40 mg Gabapentin (Neurontin) 100 mg PO TID [facility] Last Admin: 09/13/18 17:41 Dose: 100 mg Lactulose (Enulose) 20 gm PO DAILY [facility] Last Admin: 09/13/18 09:28 Dose: 20 gm Morphine Sulfate (Morphine) 2 mg SC Q4 PRN PRN Reason: Pain, severe (8-10) Last Admin: 09/13/18 14:46 Dose: 2 mg Multivitamins (Hexavitamin) 1 tab PO DAILY [facility] Last Admin: 09/13/18 09:28 Dose: 1 tab Ondansetron HCl (Zofran Odt) 4 mg PO Q6H PRN PRN Reason: Nausea/Vomiting Last Admin: 09/13/18 10:09 Dose: 4 mg Pantoprazole Sodium (Protonix Ec Tab) 40 mg PO DAILY [facility] Last Admin: 09/13/18 09:28 Dose: 40 mg Spironolactone (Aldactone) 50 mg PO BID [facility] Last Admin: 09/13/18 17:42 Dose: 50 mg Thiamine HCl (Vitamin B1 Tab) 100 mg PO DAILY [facility] Last Admin: 09/13/18 09:28 Dose: 100 mg Trazodone HCl (Desyrel) 50 mg PO HS PRN PRN Reason: Insomnia - Labs Labs: 09/10/18 06:27 09/12/18 11:34 PT 17.1 SECONDS (9.7-12.2) H 09/07/18 19:56 INR 1.6 09/07/18 19:56
--- NOTE | 2018-09-14 05:19 | CON ---
This is from Dr. Lei to Dr. Néstor Vanessa. INDICATIONS: I was called for GI consultation by the admitting MD. The patient is seen and fully examined on 09/07/2018 as requested by the admitting staff. The entire chart is reviewed, including, but not limited to most recent lab and radiology study results, current and the previous medication list, current and the previous medical events, allergy to medication list as well as all the available current and the previous medical records. Case discussed at length with the staff before and immediately after my GI consultation on 09/07/2018. A short handwriting consultation sheet and note left in the chart at the time of my GI consultation. HISTORY OF PRESENT ILLNESS: This is a 57-year-old male who was admitted to the hospital through the emergency room with a main complaint of shortness of breath, lower and mid back pain, abdominal discomfort with postprandial abdominal distention and increased abdominal gas with slight upper extremities fine tremors, but the patient appears to be awake and alert. The patient admitted to recent alcohol intake. No reported active bleeding, significant chest pain, chills, fever, or active GI bleeding. On record, the patient was admitted recently for same complaints associated with increased abdominal gas and anemia for which upper and lower endoscopy was performed. PAST MEDICAL HISTORY: Including mainly, but not limited to: 1. Alcoholism. 2. Alcoholic liver disease. 3. Peptic ulcer disease. 4. Colitis, diagnosed by recent endoscopy. 5. Peripheral edema syndrome. FAMILY HISTORY: Unknown. SOCIAL HISTORY: Positive for substance abuse as well as excessive alcohol intake. CURRENT MEDICATIONS: Post admission medication lists were reviewed. ALLERGIC TO MEDICATIONS: PER RECORDS. LABORATORY DATA: After being admitted to the hospital, initial blood workup showed hemoglobin of 10.6, hematocrit 31.1 with normal white blood cells and normal platelet count with blood glucose level of 122, but normal BUN and creatinine and elevated liver function test. PHYSICAL EXAMINATION: GENERAL: A 57-year-old male. VITAL SIGNS: Afebrile with pulse of 70, respiratory rate 20-22, blood pressure of 130/76. HEENT: Showed pale dry oral mucous membrane. Bilateral icteric sclerae. LUNGS: Few scattered bilateral mild crepitation. Breathing sounds are decreased at bases. LYMPH NODES: No lymphadenitis or lymphadenopathy. HEART: Positive S1 and S2. ABDOMEN: Soft with [id number] distention. Positive for small amount of ascites with generalized tenderness. No appreciated mass or organomegaly with no rebound tenderness or guarding. NEUROLOGIC: No reported new focal deficits. IMPRESSION: 1. Re-exacerbation of peptic ulcer disease. 2. Alcoholic liver disease with liver cirrhosis, most likely related to alcoholism. 3. 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 4. Chronic lower back pain syndrome by history. SUGGESTIONS: 1. Agree with your plan. 2. Ammonia level. 3. Started neomycin 500 mg one tablet p.o. every 6 hours. 4. Repeat alpha-fetoprotein, abdominal ultrasound, CEA with proton pump inhibitors. 5. Further recommendation to follow. Garrett Lei MD
--- NOTE | 2018-09-14 06:30 | PN ---
DATE: 09/13/2018 SUBJECTIVE: Mr. Zuniga is afebrile. No DT. His ammonia level is . He complains of cramps in the legs. PHYSICAL EXAMINATION: GENERAL: BP 130/80, pulse 87, respiratory rate 20, temperature 98.3. LUNGS: Clear. CVS: S1 and S2, regular. ABDOMEN: Soft. ASSESSMENT: 1. Chronic liver disease. 2. Coagulopathy. 3. Anemia due to . PLAN: Medical management. Monitor the patient. Néstor Vanessa MD
--- NOTE | 2018-09-14 06:32 | PN ---
DATE: 09/12/2018 SUBJECTIVE: The patient, Efrain, is complaining of extensive cramps in the legs. He is less edematous, less ascites, no fever. PHYSICAL EXAMINATION: VITAL SIGNS: Blood pressure 119/86, pulse 82, respiratory rate 20, temperature 98.4. LUNGS: Clear. CVS: S1 and S2 regular. ABDOMEN: Soft. ASSESSMENT: 1. Leg cramps, most likely diabetic polyneuropathy. 2. Alcoholic liver disease with fluid retention and ascites. 3. Coagulopathy. PLAN: Add gabapentin. Monitor the patient. Néstor Vanessa MD
--- NOTE | 2018-09-14 06:32 | PN ---
DATE: 09/11/2018 SUBJECTIVE: The patient is diuresing. His legs less swollen. He feels better. PHYSICAL EXAMINATION: VITAL SIGNS: BP 133/82, pulse 88, respiratory rate 20, temperature 98. LUNGS: Clear. CARDIOVASCULAR SYSTEM: S1 and S2, regular. ABDOMEN: Soft. ASSESSMENT: 1. Alcoholic liver disease. 2. Alcoholism. PLAN: Continue diuretic. Monitor the patient. Néstor Vanessa MD
[2018-09-14 07:34] VITALS: BP 123/79; PULSE 84; TEMP 98.7; O2SAT 97
[2018-09-14] MEDS: Multiple Vitamins Tab PO SCH (09:25)
[2018-09-14] MEDS: Pantoprazole 40 mg EC Tab PO SCH (09:26)
--- NOTE | 2018-09-14 18:05 | CP.PCM.PN ---
Subjective - Date & Time of Evaluation Date of Evaluation: 09/14/18 Time of Evaluation: 11:00 - Subjective Subjective: alert, awake, ambulates steady, NAD. Objective - Vital Signs/Intake and Output Vital Signs (last 24 hours): Temp Pulse Resp BP Pulse Ox 98.7 F 84 20 123/79 97 09/14/18 07:33 09/14/18 07:33 09/14/18 07:33 09/14/18 09:26 09/14/18 07:33 Intake and Output: 09/14/18 09/14/18 06:59 18:59 Intake Total 350 1020 Balance 350 1020 - Labs Labs: 09/10/18 06:27 09/12/18 11:34 PT 17.1 SECONDS (9.7-12.2) H 09/07/18 19:56 INR 1.6 09/07/18 19:56 Assessment and Plan - Assessment and Plan (Free Text) Assessment: Patient admitted with weakness secondary to alcoholic cirrhosis, seen and examined. Alert and orientedx3, ambulatory, no sob, tolerating diet. Denies any abdominal pain, nausea or vomiting. Tolerates diet, ambulatory steady. Discussed with DR Cavanaugh, plan to discharge home. Advised to follow up with PMD in 1 week.
--- NOTE | 2018-09-14 22:13 | PN ---
DATE: 09/14/2018 LOCATION: 352, bed A. SUBJECTIVE: This is a 57-year-old male, seen and examined on rounds today early without significant clinical changes or reported active bleeding. The entire chart is reviewed including but not limited to most recent lab and radiology study results, current and previous medication list, current and the previous medical events, and today's ammonia level is 103, but the patient is fully awake, alert, and oriented. Denied any chest pain, palpitation, any abdominal pain, nausea or vomiting. No shortness of breath. No chills or fever. PHYSICAL EXAMINATION: GENERAL: A 57-year-old male. VITAL SIGNS: Afebrile with a pulse of 80, respiratory rate 20 to 22, blood pressure 130/76. HEENT: Showed dry, mildly pale oral mucoid membrane. Nonicteric sclerae. LUNGS: Clear. Breathing sounds are present bilaterally. HEART: Positive S1 and S2. ABDOMEN: Soft with mild generalized tenderness, with slight distention. No mass or organomegaly. No rebound tenderness or guarding. EXTREMITIES: Without significant clubbing, cyanosis, or edema. It has to be mentioned that the patient had generalized jaundice with bilateral icteric sclerae. NEUROLOGICAL: No reported new neurological deficit, sensory, or motor. IMPRESSION: 1. Alcoholism with alcoholic liver disease and liver cirrhosis. 2. Abnormal liver function tests secondary to above. 3. Jaundice secondary to above. No evidence of obstructive jaundice. 4. Mild hepatic encephalopathy, stable clinically. 5. Re-exacerbation of peptic ulcer disease. SUGGESTIONS: 1. Continue current management. 2. Keep the patient on lactulose p.o. as well as neomycin. 3. The patient needs psychiatric reevaluation even after discharge to home. We will follow up closely with you as needed. We will sign off the case. Garrett Lei MD
--- NOTE | 2018-10-02 03:01 | DS ---
DISCHARGE DIAGNOSES: 1. Alcoholic liver disease with ascites. 2. Acute alcoholic hepatitis, negative cirrhosis. 3. Alcoholism. 4. Obesity. HOSPITALIZATION COURSE: This is a 57-year-old white male who was admitted because of leg swelling, difficulty walking, pain in the legs, burning, tingling and paresthesia. The patient was admitted to the floor. He was found to have ascites and lower extremity edema which responded with diuretics. The patient's condition started improving. The patient does not have cirrhosis. Due to his passive liver congestion, the patient was found to have portal hypertension. The patient did not have cirrhosis. The patient was diuresed. The patient had tingling and pain in the feet, and the patient responded to treatment with diet and he is for discharge. Néstor Vanessa MD
== END 2018-09-14 17:23 | disposition home or self-care (01) | DRG 557 ==
LOC: C.ER 16:08 → C.9E 21:24 → C.3T 23:45
PROVIDERS: ADMIT Internal Medicine; ATTEND Internal Medicine
DX: K70.11 Alcoholic hepatitis with ascites (principal); K72.90 Hepatic failure, unspecified without coma; E11.42 Type 2 diabetes mellitus with diabetic polyneuropathy; D68.9 Coagulation defect, unspecified; K76.6 Portal hypertension; D63.8 Anemia in other chronic diseases classified elsewhere; E66.9 Obesity, unspecified; F10.20 Alcohol dependence, uncomplicated; F17.200 Nicotine dependence, unspecified, uncomplicated; I10 Essential (primary) hypertension; K27.9 Peptic ulcer, site unspecified, unspecified as acute or chronic, without hemorrhage or perforation; K76.0 Fatty (change of) liver, not elsewhere classified; K76.1 Chronic passive congestion of liver; K52.9 Noninfective gastroenteritis and colitis, unspecified

== ENCOUNTER 2018-10-05 19:52 | Emergency (ER) | payer OTHER ==
[2018-10-05 19:52] VITALS: BMI 33.6
[2018-10-05 20:00] VITALS: BP 116/71; PULSE 90; RESP 16; TEMP 99.1; O2SAT 99
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
[2018-10-06] MEDS ORDERED: Bacitracin 500 Units/gm Oint Foilpak UD ONE (04:53)
--- NOTE | 2018-10-06 08:35 | CT ---
Date of service: 10/05/2018 PROCEDURE: CT HEAD WITHOUT CONTRAST. HISTORY: fall COMPARISON: 08/24/2018 TECHNIQUE: Axial computed tomography images were obtained through the head/brain without intravenous contrast. Radiation dose: Total exam DLP = 988.05 mGy-cm. This CT exam was performed using one or more of the following dose reduction techniques: Automated exposure control, adjustment of the mA and/or kV according to patient size, and/or use of iterative reconstruction technique. FINDINGS: HEMORRHAGE: No intracranial hemorrhage. BRAIN: No mass effect or edema. Although the head is tilted-some degree of mild cerebral atrophy is bleed present. No significant appearing chronic microvascular ischemic changes. VENTRICLES: Unremarkable. No hydrocephalus. CALVARIUM: Unremarkable. PARANASAL SINUSES: Unremarkable as visualized. No significant inflammatory changes. MASTOID AIR CELLS: Unremarkable as visualized. No inflammatory changes. OTHER FINDINGS: Small calcification in left para frontal scalp unchanged-the soft tissues here appear minimally more prominent-small soft tissue swelling here relating to trauma a consideration. Correlate clinically. IMPRESSION: No interval hemorrhage or mass effect.. Concordant results (preliminary interpretation) provided by [employer].
== END 2018-10-05 20:55 | disposition left against medical advice (07) ==
LOC: C.ER 19:52
DX: F10.10 Alcohol abuse, uncomplicated (principal); I10 Essential (primary) hypertension

== ENCOUNTER 2018-10-06 01:06 | Emergency (ER) | payer OTHER ==
[2018-10-06 01:06] VITALS: BMI 33.6
[2018-10-06 01:18] VITALS: RESP 20; O2SAT 96
--- NOTE | 2018-10-06 02:50 | C.PDOC ---
History Of Present Illness 57 year old male with a Hx of ETOH abuse presents to the ER with a complaint of bilateral knee pain after he tripped and fell [employer]. Patient was seen earlier today for ETOH intoxication, he had a CT head done for a fall he had 2 days ago that was read as normal. Denies weakness, numbness, LOC, or head injury. Tetanus is UTD. Time Seen by Provider: 10/06/18 01:24 Chief Complaint (Nursing): Lower Extremity Problem/Injury History Per: Patient History/Exam Limitations: no limitations Onset/Duration Of Symptoms: Hrs Current Symptoms Are (Timing): Still Present Recent travel outside of the [place]: No - Knee Description Of Injury: Fell Past Medical History Reviewed: Historical Data, Nursing Documentation, Vital Signs Vital Signs: Last Vital Signs Temp 97.6 F 10/06/18 01:16 Pulse 94 H 10/06/18 01:16 Resp 20 10/06/18 01:16 BP 107/68 10/06/18 01:16 Pulse Ox 96 10/06/18 01:16 - Medical History PMH: HTN, Peripheral Edema Denies: Chronic Kidney Disease - [facility] Procedures DETOXIFICATION SERVICES FOR SUBSTANCE ABUSE TREATMENT (07/14/17) EXCISION OF DESCENDING COLON, ENDO, DIAGN (08/19/18) EXCISION OF SMALL INTESTINE, ENDO, DIAGN (08/19/18) TRANSFUSE NONAUT FROZEN PLASMA IN PERIPH VEIN, PERC (08/19/18) Family History: States: Unknown Family Hx - Social History Hx Alcohol Use: Yes (2 weeks ago) Hx Substance Use: Yes - Immunization History Hx Tetanus Toxoid Vaccination: No Hx Influenza Vaccination: No Hx Pneumococcal Vaccination: No Review Of Systems Musculoskeletal: Positive for: Other (Bilateral knee pain) Skin: Positive for: Other (Excoriations to bilateral knees) Neurological: Negative for: Weakness, Numbness, Other (LOC) Physical Exam - Physical Exam Appears: Non-toxic Skin: Warm, Dry Head: Atraumatic, Normacephalic Eye(s): bilateral: Normal Inspection Extremity: No Tenderness, Pedal Edema (Bilateral), Capillary Refill (<2 seconds), No Deformity, No Swelling, Other (Excoriations to bilateral knees, ROM of knees causes pain, No cellulitis) Pulses: Left Dorsalis Pedis: Normal, Right Dorsalis Pedis: Normal Neurological/Psych: Oriented x3, Normal Speech, Normal Motor, Normal Sensation Gait: Steady ED Course And Treatment O2 Sat by Pulse Oximetry: 96 (Room air) Pulse Ox Interpretation: Normal - Other Rad Bilateral knee x-ray X-Ray: Interpreted by Me, Viewed By Me Interpretation: No acute fractures or dislocations. Progress Note: Bilateral knee x-ray ordered, results were negative. Toradol administered. Wound cleansed and dressed. Patient is resting comfortably in the ER in no acute distress, able to ambulate with steady gait, vitals are stable, will discharge home with instructions to follow up with PMD. Disposition - Disposition Disposition: HOME/ ROUTINE Disposition Time: 05:09 Condition: STABLE Forms: [employer] (Indonesian) - Clinical Impression Clinical Impression: Abrasion of knee, bilateral, Alcohol abuse - PA / [employer] HELPER / 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 - Scribe Statement The provider has reviewed the documentation as recorded by the Scribe Ciaran Edmonds All medical record entries made by the Scribe were at my direction and personally dictated by me. I have reviewed the chart and agree that the record accurately reflects my personal performance of the history, physical exam, medical decision making, and the department course for this patient. I have also personally directed, reviewed, and agree with the discharge instructions and disposition.
[2018-10-06] MEDS ORDERED: Bacitracin Ointment 30 GM TUBE TOP STA (05:04)
[2018-10-06 05:08] VITALS: BP 94/51; PULSE 105; TEMP 97.7
--- NOTE | 2018-10-06 07:43 | RAD ---
Date of service: 10/06/2018 PROCEDURE: Bilateral Knee Radiographs. HISTORY: pain bilateral knees COMPARISON: None. FINDINGS: BONES: Right Knee: No fracture Left Knee: No fracture JOINTS: Right Knee: Minimal osteoarthritis. Left knee: Minimal osteoarthritis. SOFT TISSUES: Right Knee: Normal. Left Knee: Normal. JOINT EFFUSION: Right Knee: None. Left Knee: None. OTHER FINDINGS: Bilateral chondrocalcinosis IMPRESSION: No fracture or lytic lesions noted. Minimal bilateral knee joint arthrosis each medial femoral tibial joint appears most narrowed. Bilateral chondrocalcinosis.
== END 2018-10-06 06:15 | disposition home or self-care (01) ==
LOC: C.ER 01:06
DX: S80.212A Abrasion, left knee, initial encounter (principal); S80.211A Abrasion, right knee, initial encounter; W01.0XXA Fall on same level from slipping, tripping and stumbling without subsequent striking against object, initial encounter; Y92.9 Unspecified place or not applicable; F10.10 Alcohol abuse, uncomplicated
CPT/HCPCS: 73562; 82948; 96372; 99284; J1885

== ENCOUNTER 2018-10-06 22:19 | Emergency (ER) | payer OTHER ==
[2018-10-06 22:19] VITALS: BMI 33.6
--- NOTE | 2018-10-06 23:36 | C.PDOC ---
History Of Present Illness 57 year old with PMHx alcohol abuse presents to the ED for evaluation after sustaining a fall yesterday. Patient was seen in the ED twice last night for a fall as well. However patient reports he fell again after being discharged for a second time. Patient reports he was wearing flip flops last night and sustained abrasion to bilateral 2nd toes. Patient's is up to date with his tetanus as per old records. Patient denies LOC, headache, head injury, visual changes, nausea, vomit, dizziness, weakness, numbness, alcohol abuse today. Time Seen by Provider: 10/06/18 22:46 Chief Complaint (Nursing): Lower Extremity Problem/Injury History Per: Patient History/Exam Limitations: no limitations Onset/Duration Of Symptoms: Days Current Symptoms Are (Timing): Still Present Recent travel outside of the [place]: No Additional History Per: Patient - Ankle/Foot Description Of Injury: Fell Past Medical History Reviewed: Historical Data, Nursing Documentation, Vital Signs Vital Signs: Last Vital Signs Temp 98.5 F 10/06/18 22:25 Pulse 96 H 10/06/18 22:25 Resp 19 10/06/18 22:25 BP 119/76 10/06/18 22:25 Pulse Ox 99 10/06/18 22:25 - Medical History PMH: HTN, Peripheral Edema Denies: Chronic Kidney Disease Surgical History: No Surg Hx - [facility] Procedures DETOXIFICATION SERVICES FOR SUBSTANCE ABUSE TREATMENT (07/14/17) EXCISION OF DESCENDING COLON, ENDO, DIAGN (08/19/18) EXCISION OF SMALL INTESTINE, ENDO, DIAGN (08/19/18) TRANSFUSE NONAUT FROZEN PLASMA IN PERIPH VEIN, PERC (08/19/18) Family History: States: Unknown Family Hx - Social History Hx Alcohol Use: Yes Hx Substance Use: No (DENIES) - Immunization History Hx Tetanus Toxoid Vaccination: No Hx Influenza Vaccination: Yes Hx Pneumococcal Vaccination: Yes Review Of Systems Constitutional: Negative for: Fever, Chills Eyes: Negative for: Vision Change Cardiovascular: Negative for: Chest Pain, Palpitations Respiratory: Negative for: Cough, Shortness of Breath Gastrointestinal: Negative for: Nausea, Vomiting, Abdominal Pain Musculoskeletal: Positive for: Foot Pain Skin: Negative for: Rash Neurological: Negative for: Weakness, Numbness, Headache, Dizziness Physical Exam - Physical Exam Appears: Non-toxic, No Acute Distress Skin: Normal Color, Warm, Dry Head: Atraumatic, Normacephalic Eye(s): bilateral: Normal Inspection, PERRL, EOMI Oral Mucosa: Moist Neck: Normal ROM, Supple Chest: Symmetrical Cardiovascular: Rhythm Regular Respiratory: Normal Breath Sounds, No Rales, No Rhonchi, No Wheezing Gastrointestinal/Abdominal: Soft, No Tenderness, No Guarding, No Rebound, Other (obese) Back: Other (contusion left sided buttock) Extremity: Normal ROM, No Tenderness, Pedal Edema (bilateral pitting), Capillary Refill (< 2 seconds), Other (contusion left lateral thigh, healing abrasion to bilateral knees,abrasions to 2nd toes feet) Pulses: Left Dorsalis Pedis: Normal, Right Dorsalis Pedis: Normal Neurological/Psych: Oriented x3, Normal Speech, Normal Cognition Gait: Steady ED Course And Treatment O2 Sat by Pulse Oximetry: 99 (ON RA) Pulse Ox Interpretation: Normal Medical Decision Making Medical Decision Making: Plan: * clinically sober * observation 00:55 - patient signed out to Dr. escalante pending clinical sobriety Disposition Counseled Patient/Family Regarding: Studies Performed, Diagnosis, Need For Followup - Disposition Disposition Time: 01:08 Condition: STABLE Forms: [employer] (Czech) - Clinical Impression Clinical Impression: Alcohol abuse, Multiple abrasions - Scribe Statement The provider has reviewed the documentation as recorded by the Scribe Trent Hutchison All medical record entries made by the Scribe were at my direction and personally dictated by me. I have reviewed the chart and agree that the record accurately reflects my personal performance of the history, physical exam, medical decision making, and the department course for this patient. I have also personally directed, reviewed, and agree with the discharge instructions and disposition. Physician Patient Turnover Patient Signed Over To: Lina Escalante Handoff Comments: pending sobriety
[2018-10-07] MEDS ORDERED: Acetaminophen 650mg/20.3ml solution UD PO STA (01:02)
[2018-10-07 06:24] VITALS: BP 117/71; PULSE 79; RESP 20; TEMP 98.1; O2SAT 100
== END 2018-10-07 06:00 | disposition home or self-care (01) ==
LOC: C.ER 22:19
DX: F10.129 Alcohol abuse with intoxication, unspecified (principal); S90.415A Abrasion, left lesser toe(s), initial encounter; S90.414A Abrasion, right lesser toe(s), initial encounter; S80.212A Abrasion, left knee, initial encounter; S80.211A Abrasion, right knee, initial encounter; W01.0XXA Fall on same level from slipping, tripping and stumbling without subsequent striking against object, initial encounter; Y92.9 Unspecified place or not applicable

== ENCOUNTER 2018-10-08 18:05 | Emergency (ER) | payer OTHER ==
[2018-10-08 18:05] VITALS: BMI 33.6
[2018-10-08 18:24] VITALS: BP 114/70; PULSE 87; RESP 16; TEMP 97.7; O2SAT 100
--- NOTE | 2018-10-08 18:54 | C.PDOC ---
History Of Present Illness 57 y/o male presents complaining of chronic bilateral leg pain, sent by PMDs office for ETOH intoxication. On arrival he admits to drinking alcohol. Denies recent fall or trauma. Of note patient has been seen here many times, recently for alcohol abuse. Patient denies any worsening edema, fevers, chills, numbness, tingling, or extremity weakness. He had a negative duplex ultrasound on 08/28. Patient was seen and admitted for the same last month. Noted to be ambulating around the ED by nursing staff, in no apparent distress. Time Seen by Provider: 10/08/18 18:34 Chief Complaint (Nursing): Groin Pain History Per: Patient History/Exam Limitations: no limitations Onset/Duration Of Symptoms: Days Current Symptoms Are (Timing): Still Present Past Medical History Reviewed: Historical Data, Nursing Documentation, Vital Signs Vital Signs: Last Vital Signs Temp 97.7 F 10/08/18 18:23 Pulse 87 10/08/18 18:23 Resp 16 10/08/18 18:23 BP 114/70 10/08/18 18:23 Pulse Ox 100 10/08/18 18:23 - Medical History PMH: HTN, Peripheral Edema, Chronic Pain (leg) Denies: Chronic Kidney Disease - [facility] Procedures DETOXIFICATION SERVICES FOR SUBSTANCE ABUSE TREATMENT (07/14/17) EXCISION OF DESCENDING COLON, ENDO, DIAGN (08/19/18) EXCISION OF SMALL INTESTINE, ENDO, DIAGN (08/19/18) TRANSFUSE NONAUT FROZEN PLASMA IN PERIPH VEIN, PERC (08/19/18) Family History: States: Unknown Family Hx - Social History Hx Alcohol Use: Yes Hx Substance Use: No (DENIES) - Immunization History Hx Tetanus Toxoid Vaccination: No Hx Influenza Vaccination: Yes Hx Pneumococcal Vaccination: Yes Review Of Systems Constitutional: Negative for: Fever, Chills Musculoskeletal: Positive for: Leg Pain (chronic bilateral leg pain) Skin: Negative for: Lesions Neurological: Negative for: Weakness, Numbness, Incoordination Physical Exam - Physical Exam Appears: Non-toxic, No Acute Distress Skin: Warm, Dry, No Rash Head: Atraumatic, Normacephalic Eye(s): bilateral: Normal Inspection, PERRL, EOMI Oral Mucosa: Moist Neck: Normal ROM Chest: Symmetrical Cardiovascular: Rhythm Regular, No Murmur Respiratory: Normal Breath Sounds, No Accessory Muscle Use Gastrointestinal/Abdominal: Soft, No Tenderness, No Distention Extremity: Normal ROM (with full ROM of bilateral lower extremities), Pedal Edema (bilateral) Extremity: Bilateral: Atraumatic, Normal Color And Temperature Pulses: Left Dorsalis Pedis: Normal, Right Dorsalis Pedis: Normal Neurological/Psych: Oriented x3, Normal Speech ED Course And Treatment O2 Sat by Pulse Oximetry: 100 (RA) Pulse Ox Interpretation: Normal Medical Decision Making Medical Decision Making: Plan: Patient given Tylenol PO for pain. Witnessed by ED staff to be ambulating with steady gait, no acute distress. Patient is stable for discharge home. discussed with pmd agrees with dc Disposition Counseled Patient/Family Regarding: Diagnosis, Need For Followup - Disposition Disposition: HOME/ ROUTINE Disposition Time: 18:45 Condition: STABLE Additional Instructions: return to er with worsening symptoms or concenrs. Instructions: Alcohol Use - When Is Drinking a Problem?, Cameron Splints (DC) Forms: [employer] (Romansh) - POA Present On Arrival: None - Clinical Impression Clinical Impression: Chronic leg pain - Scribe Statement The provider has reviewed the documentation as recorded by the Scribe (Batsheva Levy) Provider Attestation: All medical record entries made by the Scribe were at my direction and personally dictated by me. I have reviewed the chart and agree that the record accurately reflects my personal performance of the history, physical exam, medical decision making, and the department course for this patient. I have also personally directed, reviewed, and agree with the discharge instructions and disposition.
== END 2018-10-08 19:12 | disposition home or self-care (01) ==
LOC: C.ER 18:05
DX: G89.29 Other chronic pain (principal); M79.604 Pain in right leg; M79.605 Pain in left leg; I10 Essential (primary) hypertension

== ENCOUNTER 2018-10-17 18:18 | Inpatient (IN) | payer OTHER ==
[2018-10-17 18:19] VITALS: BMI 33.6
--- NOTE | 2018-10-17 18:29 | C.PDOC ---
History Of Present Illness 57 years old male brought to ED by EMS for altered mental status. As per family members, patient was speaking in the morning and was laying in bed all day, then patient became non-verbalizing around unknown time. Patient usually drinks a lot but did not have any drinks today. As per EMS, patient has generalized weakness, not enough movement, and unresponsive. Patient also fell two days ago after he left a hospital (unknown which hospital) and sustained bruises that extend from epigastric area around to his right side, left lower quadrant, and right thigh. Code Stroke called in ER at 18:22. Patient also has PMHx of HTN and high cholesterol. Chief Complaint (Nursing): Altered Mental Status History Per: EMS, Family History/Exam Limitations: Clinical Condition Onset/Duration Of Symptoms: Hrs Onset Of Symptoms: Cannot Confirm Onset Current Symptoms Are (Timing): Still Present Usual Baseline: Non-responsive, Non-verbal Exacerbating Factor(s): Unknown Use Of Anticoag/Antiplatelets: Unknown Decreased Ability To: Stand, Walk, Sit Recent travel outside of the [place] States: No Past Medical History Reviewed: Historical Data, Nursing Documentation, Vital Signs - Medical History PMH: HTN, Peripheral Edema, Chronic Pain (leg) Denies: Chronic Kidney Disease - [facility] Procedures DETOXIFICATION SERVICES FOR SUBSTANCE ABUSE TREATMENT (07/14/17) EXCISION OF DESCENDING COLON, ENDO, DIAGN (08/19/18) EXCISION OF SMALL INTESTINE, ENDO, DIAGN (08/19/18) TRANSFUSE NONAUT FROZEN PLASMA IN PERIPH VEIN, PERC (08/19/18) Family History: States: Unknown Family Hx - Social History Hx Alcohol Use: Yes Hx Substance Use: No (DENIES) - Immunization History Hx Tetanus Toxoid Vaccination: No Hx Influenza Vaccination: Yes Hx Pneumococcal Vaccination: Yes Review Of Systems Review Of Systems: ROS cannot be obtained secondary to pt's inabilty to answer questions. (Clinical condition) Physical Exam - Physical Exam Appears: Confused Skin: Normal Color, Warm, Dry ED Course And Treatment - Laboratory Results Result Diagrams: 10/18/18 06:43 10/18/18 06:43 ECG: Interpreted By Me, Viewed By Me ECG Rhythm: Sinus Tachycardia Interpretation Of ECG: Sinus Tachycardia at rate 106bpm. Normal NH and QRS i ntervals. No ST elevation. Artifact noted. Rate From EC - Other Rad Chest X-Ray X-Ray: Read By Radiologist Interpretation: FINDINGS: LUNGS: Mild venous congestion. PLEURA: No significant pleural effusion identified, no pneumothorax apparent. CARDIOVASCULAR: Aortic atherosclerotic calcification present. Cardiomegaly. OSSEOUS STRUCTURES: Postsurgical changes in the spine. VISUALIZED UPPER ABDOMEN: Normal. OTHER FINDINGS: None. IMPRESSION: Mild venous congestion. - CT Scan/US CT Chest/Abd/Pel Other Rad Studies (CT/US): Read By Radiologist, Radiology Report Reviewed CT/US Interpretation: IMPRESSION: 1. Moderately enlarged heart with pulmonary venous congestive changes and pulmonary edema. 2. Bibasilar atelectatic changes. 3. Fatty liver. 4. Suspicious cholecystitis with evidence of pericholecystic inflammatory stranding. 5. Enteritis and colitis. 6. Mild abdominal ascites and fluid tracking into the right paracolic gutter. 7. Small fat-containing umbilical hernia. 8. Old healed fracture involving the right tenth posterior rib. CT Head Other Rad Studies (CT/US): Read By Radiologist, Radiology Report Reviewed CT/US Interpretation: IMPRESSION: No evidence of acute intracranial pathology. CTA Head Other Rad Studies (CT/US): Read By Radiologist, Radiology Report Reviewed CT/US Interpretation: FINDINGS: VASCULATURE: NECK: COMMON CAROTID ARTERIES. No significant stenosis. No dissection or occlusion. EXTERNAL CAROTID ARTERIES. Patent. NECK: INTERNAL CAROTID ARTERIES. No stenosis by NASCET criteria. No dissection or occlusion. VERTEBRAL ARTERIES. No significant stenosis. No dissection or occlusion. HEAD: ANTERIOR CEREBRAL ARTERIES. No significant stenosis. No occlusion. No aneurysm. MIDDLE CEREBRAL ARTERIES. No significant stenosis. No occlusion. No aneurysm. POSTERIOR CEREBRAL ARTERIES. No significant stenosis. No occlusion. No aneurysm. BASILAR ARTERY. No significant stenosis. No occlusion. No aneurysm. OTHER: SOFT TISSUES. No acute finding. BONES. No acute osseous abnormality. IMPRESSION: Unremarkable CTA of the head and neck. Critical Care Time - Critical Care Note Total Time (in mins): 90 Documented critical care: time excludes all time spent performing seperately billable procedures. Medical Decision Making Medical Decision Making: Plan: * Blood bank * EKG * CXR * CT Chest, abdomen and pelvis * CTA Head * CT Head 18:22: * Code Stroke called in ER 1924: * Case discussed with Dr. Segura (neurologist career transition specialist). Recommends to order EEG and to call him back after CTA results. 2036: * Case discussed with Dr. Vanessa, who accepts the patient for admission. 2051: * Case discussed with Dr. Fabiana Koch ([employer]). Recommends to order Ultrasound and administer Narcan. 2119 * Dr. Koch in ED to evaluate pt. and accepts pt to the ICU. Patient was unresponsive to Narcan. Patient has elevated ammonia level. recommends NGT, Lactulose via NGT and NH Dulcolax. Disposition - Disposition Disposition: HOSPITALIZED Condition: SERIOUS - PA / SEISMIC COMPUTER / 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 - Scribe Statement The provider has reviewed the documentation as recorded by the Carmitaibbhavin Jolly All medical record entries made by the Augie were at my direction and personally dictated by me. I have reviewed the chart and agree that the record accurately reflects my personal performance of the history, physical exam, medical decision making, and the department course for this patient. I have also personally directed, reviewed, and agree with the discharge instructions and disposition.
[2018-10-17] MEDS ORDERED: Iodixanol 320 MG/ML 100 ML BOTTLE IV ONE (18:30)
[2018-10-17 18:34] LABS: HEMOGLOBIN 10.8 g/dL (12.0-18.0); LYMPH # 1.6 K/uL (1.0-4.3); MONO # 0.9 K/uL (0.0-0.8)
[2018-10-17 18:41] LABS: BASO # 0.1 K/uL (0.0-0.2); BASO % 0.6 % (0.0-2.0); EOS % 0.2 % (0.0-4.0); LYMPH % 17.6 % (20.0-40.0); MEAN CELL VOLUME 102.3 fL (80.0-94.0); MEAN CORPUSCULAR HEMOGLOBIN 35.4 pg (27.0-31.0); MEAN CORPUSCULAR HGB CONC 34.6 g/dL (33.0-37.0); MEAN PLATELET VOLUME 9.3 fL (7.2-11.7); MONO % 10.3 % (0.0-10.0); NEUT # 6.5 K/uL (1.8-7.0); NEUT % 71.3 % (50.0-75.0); NRBC % 0.4 % (0.0-2.0); RBC 3.05 Mil/uL (4.40-5.90); RED CELL DISTRIBUTION WIDTH 18.2 % (11.5-14.5); WHITE BLOOD COUNT 9.1 K/uL (4.8-10.8)
[2018-10-17 18:45] LABS: ALB/GLOB RATIO 0.7 (1.0-2.1); ALBUMIN 3.2 g/dL (3.5-5.0); BLOOD UREA NITROGEN 25 mg/dL (9-20); CALCIUM 7.7 mg/dl (8.6-10.4); GFR NON-AFRICAN AMERICAN > 60; HDL CHOLESTEROL 29 mg/dL (30-70)
[2018-10-17 18:48] LABS: INR 2.1; PROTHROMBIN TIME 23.2 SECONDS (9.7-12.2)
[2018-10-17 18:49] LABS: ALT/SGPT 20 U/L (21-72); AST/SGOT 204 U/L (17-59)
[2018-10-17 18:56] LABS: LDL CHOLESTEROL 71 mg/dL (0-129)
--- NOTE | 2018-10-17 19:37 | RAD ---
Date of service: 10/17/2018 HISTORY: Code Stroke COMPARISON: No prior. FINDINGS: LUNGS: Mild venous congestion. PLEURA: No significant pleural effusion identified, no pneumothorax apparent. CARDIOVASCULAR: Aortic atherosclerotic calcification present. Cardiomegaly. OSSEOUS STRUCTURES: Postsurgical changes in the spine. VISUALIZED UPPER ABDOMEN: Normal. OTHER FINDINGS: None. IMPRESSION: Mild venous congestion.
[2018-10-17 20:35] LABS: B-TYPE NATRIURETIC PEPTIDE 3360 pg/mL (0-900)
[2018-10-17] MEDS ORDERED: Naloxone 0.4 mg/ml Inj (Adult) ONE (20:56)
[2018-10-17] MEDS ORDERED: Naloxone 0.4 mg/ml Inj (Adult) IVP ONE (20:58)
[2018-10-17 21:17] LABS: BARBITURATES, UR NEGATIVE (NEGATIVE); BENZODIAZEPINES, UR NEGATIVE (NEGATIVE); OPIATES, UR NEGATIVE (NEGATIVE); PHENCYCLIDINE, UR NEGATIVE (NEGATIVE)
[2018-10-17] MEDS ORDERED: Lactulose 10 gm/15 ml (Rectal Use) PR ONE (21:51)
[2018-10-17] MEDS ORDERED: Sodium Chloride 0.9% 500 ML IV ONE (21:52)
[2018-10-17 22:15] LABS: URINE BACTERIA RARE (<OCC); URINE BILIRUBIN 1+ (NEGATIVE); URINE BLOOD 2+ (NEGATIVE); URINE CLARITY Clear (Clear); URINE COLOR Amber (YELLOW); URINE GLUCOSE (UA) NORMAL (Normal); URINE LEUKOCYTE ESTERASE TRACE Leu/uL (Negative); URINE PROTEIN 1+ mg/dL (NEGATIVE)
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
[2018-10-17] MEDS ORDERED: Phytonadione 10 mg/ml Inj (Adult) IV STA (22:34)
[2018-10-17] MEDS ORDERED: Albumin Human 5% (12.5 gm/250 ml) IV ONE (22:35)
[2018-10-17] MEDS ORDERED: Folic Acid 1 MG, Thiamine 100 MG, Multivitamin (MVI) 10 ML in Dextrose 5% In Water 1,00... IV SCH (23:45)
[2018-10-18 00:15] LABS: ABG ALLEN TEST NEG; ARTERIAL BLOOD GAS HCO3 31.1 mmol/L (21-28); ARTERIAL BLOOD GAS O2 SAT 98.8 % (95-98); ARTERIAL BLOOD GAS PCO2 26 mm/Hg (35-45); ARTERIAL BLOOD GAS PH 7.64 (7.35-7.45); ARTERIAL BLOOD GAS PO2 80 mm/Hg (80-100); ARTERIAL BLOOD GAS TCO2 28.8 mmol/L (22-28)
[2018-10-18] MEDS ORDERED: Propofol 10 mg/ml 1,000 MG/100 ML VIAL IV PRN (00:21)
[2018-10-18] MEDS ORDERED: Rocuronium 10 mg/ml (5 ml) IV ONE (00:45)
--- NOTE | 2018-10-18 00:49 | PCM.PROC ---
Procedures Attestation:: I certify that I have explained the specified Operation(s) or Procedure(s), risks, benefits and reasonable alternatives to the Patient and/or other person responsible. The opportunity was given to ask questions and all questions answered - Intubation Sedative: Etomidate Paralytic: Rocuronimum Laryngoscope: Pina ET Tube Size: 7.5 ET Tube Uncuffed: No ET Tube Secured at Depth: 22 ET Tube Secured Locarion: Teeth ET Tube Placement Confirmation: Visualized Passing Through Cords, Breath Sounds Equal Bilaterally, No Breath Sounds Over Epigastrum, Confirmation w/Capnometry Patient Tolerated Procedure: Well Procedure Immediate Complications: None
[2018-10-18] MEDS ORDERED: Octreotide 1,250 MCG in Dextrose 5% In Water 250 ML SC PRN (01:00)
[2018-10-18] MEDS ORDERED: Pantoprazole 80 MG in Sodium Chloride 0.9% 100 ML IVP SCH (01:00)
[2018-10-18] MEDS: Etomidate 20 mg/10ml Inj IV ONE ×2 (01:38→01:40)
[2018-10-18] MEDS: Piperacill/Tazo 3.375gm in Dex 3.375 GM/50 ML BAG IVPB SCH ×2 (01:45→06:15)
--- NOTE | 2018-10-18 02:09 | PCM.PROC ---
Procedures Attestation:: I certify that I have explained the specified Operation(s) or Procedure(s), risks, benefits and reasonable alternatives to the Patient and/or other person responsible. The opportunity was given to ask questions and all questions answered - Central Line Placement Right Internal Jugular Triple Lumen Catheter Aseptic technique was employed throughout the procedure: Hand Hygiene done prior to procedure, Full sterile barriers (mask, hair cover, sterile gown, sterile gloves), Full body sterile drape, Chloraprep Antiseptic: 30 second prep for IJ or SC sites CVP Time Out Performed: Yes Pt. Placed on Pulse Ox Monitor: Yes Central Line Prep: Chlorhexidine-Alcohol Combination Local Anesthesia Used: Lidocaine 1% Amount of Anesthesia Used (mls): 5 Ultrasound Used for Placement: Yes Central Line Lumen Inserted: triple Central Line Length: 20 cm Post Procedure: Sutured in Place, Good Blood Return, All Ports Aspirated, Flushed, Capped, Sterile Dressing Applied Secured by: Suture Post procedure dressing: Gauze, Clear vapor permeable, Chlorhexidine disc (Biopatch) Post Procedure X-Ray: No Patient Tolerated Procedure: Well Immediate Complications: None Additional Comments: CVP reveal right sided pressure curve. OK to use central line
[2018-10-18 06:04] LABS: ABG ALLEN TEST NEG; ARTERIAL BLOOD GAS HEMOGLOBIN 8.8 g/dL (11.7-17.4); ARTERIAL BLOOD GAS O2 SAT 100.1 % (95-98); ARTERIAL BLOOD GAS PCO2 22 mm/Hg (35-45); ARTERIAL BLOOD GAS PH 7.65 (7.35-7.45); ARTERIAL BLOOD GAS PO2 216 mm/Hg (80-100); ARTERIAL BLOOD GAS TCO2 24.9 mmol/L (22-28)
[2018-10-18 06:06] LABS: SQUAMOUS EPITHIAL 9 /hpf (0-5); URINE BACTERIA RARE (<OCC); URINE BILIRUBIN 1+ (NEGATIVE); URINE BLOOD 2+ (NEGATIVE); URINE CLARITY Clear (Clear); URINE COLOR Amber (YELLOW); URINE GLUCOSE (UA) NORMAL (Normal); URINE LEUKOCYTE ESTERASE TRACE Leu/uL (Negative); URINE PROTEIN 1+ mg/dL (NEGATIVE)
[2018-10-18 06:49] LABS: BASO # 0.1 K/uL (0.0-0.2); BASO % 1.4 % (0.0-2.0); EOS % 0.4 % (0.0-4.0); HEMOGLOBIN 8.4 g/dL (12.0-18.0); LYMPH # 2.6 K/uL (1.0-4.3); LYMPH % 29.6 % (20.0-40.0); MEAN CELL VOLUME 102.3 fL (80.0-94.0); MEAN CORPUSCULAR HEMOGLOBIN 35.9 pg (27.0-31.0); MEAN CORPUSCULAR HGB CONC 35.1 g/dL (33.0-37.0); MEAN PLATELET VOLUME 9.6 fL (7.2-11.7); MONO # 0.8 K/uL (0.0-0.8); MONO % 8.7 % (0.0-10.0); NEUT # 5.3 K/uL (1.8-7.0); NEUT % 59.9 % (50.0-75.0); NRBC % 0.4 % (0.0-2.0); RBC 2.34 Mil/uL (4.40-5.90); RED CELL DISTRIBUTION WIDTH 18.2 % (11.5-14.5); WHITE BLOOD COUNT 8.8 K/uL (4.8-10.8)
--- NOTE | 2018-10-18 06:55 | CT ---
Date of service: 10/17/2018 PROCEDURE: CT HEAD WITHOUT CONTRAST. HISTORY: Code Stroke COMPARISON: None available. TECHNIQUE: Axial computed tomography images were obtained through the head/brain without intravenous contrast. Radiation dose: Total exam DLP = 1033.76 mGy-cm. This CT exam was performed using one or more of the following dose reduction techniques: Automated exposure control, adjustment of the mA and/or kV according to patient size, and/or use of iterative reconstruction technique. FINDINGS: HEMORRHAGE: No intracranial hemorrhage. BRAIN: No mass effect or edema. Scattered focal lucencies in the subcortical and periventricular white matter suggestive for chronic microvascular ischemic change. VENTRICLES: Unremarkable. No hydrocephalus. CALVARIUM: Unremarkable. PARANASAL SINUSES: Mild mucosal thickening of the right maxillary sinus. MASTOID AIR CELLS: Unremarkable as visualized. No inflammatory changes. OTHER FINDINGS: Probable old bilateral nasal bone deformities. IMPRESSION: No acute intracranial abnormality. If symptoms persists, consider correlation with MRI. These findings were preliminarily reported at 6:45 p.m. on 10/17/[address] Gregorio Roberts from [place].
[2018-10-18 07:09] LABS: CALCIUM 7.5 mg/dl (8.6-10.4)
--- NOTE | 2018-10-18 07:37 | RAD ---
Chest x-ray single frontal view HISTORY: Intubation. COMPARISON: 10/17/2018 FINDINGS: Endotracheal tube extending into the midthoracic trachea. NG tube extending into the distal esophagus/stomach. Distal tip not well visualized. Mild venous congestion. Blunted right costophrenic angle. Left costophrenic angle not imaged. Cardiomegaly. Postsurgical changes in the spine. Impression: Endotracheal tube extending into the midthoracic trachea. NG tube extending into the distal esophagus/stomach. Distal tip not well visualized. Mild venous congestion. Blunted right costophrenic angle. Left costophrenic angle not imaged. Cardiomegaly.
--- NOTE | 2018-10-18 07:45 | RAD ---
Chest x-ray single frontal view HISTORY: Central line placement. COMPARISON: 10/18/2018 FINDINGS: Right central venous catheter with tip extending into the right SVC. Other lines and tubes in unchanged position. Postsurgical changes in the cervical spine. Diffuse increased interstitial lung markings. Mild venous congestion. Elevated right hemidiaphragm. Mild cardiomegaly. Degenerative changes in the spine and shoulders. Impression: Right central venous catheter with tip extending into the right SVC. Other lines and tubes in unchanged position. Distal tip of the NG tube is not well visualized. Postsurgical changes in the cervical spine. Diffuse increased interstitial lung markings. Mild venous congestion. Elevated right hemidiaphragm. Mild cardiomegaly.
--- NOTE | 2018-10-18 07:56 | RAD ---
Chest x-ray single frontal view HISTORY: Intubated. COMPARISON: 10/18/2018 FINDINGS: Lines and tubes in stable position. Distal tip of the NG tube is not well visualized. Elevated right hemidiaphragm. Mild venous congestion. Patchy increased markings in the right infrahilar region Top normal heart size. Tortuous ectatic aorta. Postsurgical changes in the spine. Impression: Lines and tubes in stable position. Distal tip of the NG tube is not well visualized. Elevated right hemidiaphragm. Mild venous congestion. Patchy increased markings in the right infrahilar region Top normal heart size. Tortuous ectatic aorta.
--- NOTE | 2018-10-18 08:23 | US ---
Right upper quadrant abdominal ultrasound HISTORY: Cholecystitis. Comparison: CT scan dated 10/17/2018 Technique: Real-time sonography was performed through the right upper quadrant of the abdomen. FINDINGS: Limited portable ICU study. Liver: Prominent liver measuring 23 centimeters in length. Increased echogenicity of the hepatic parenchymal cortex suggestive for fatty infiltration versus hepatic parenchymal disease. Clinical correlation. Please note portal venous flow was not well documented on this study. Clinical correlation. Gallbladder: No calculi or sludge. Top normal wall thickness of 3 millimeters. Negative sonographic Padilla's sign. Common bile duct is prominent measuring 5.5 millimeters. Pancreas is not visualized. Limited visualization of the aorta and IVC. Right kidney: 13.4 x 6.4 x 6.6 centimeters. Mild fullness versus mild hydronephrosis of the right renal collecting system. Impression: Limited portable ICU study. Prominent liver measuring 23 centimeters in length. Increased echogenicity of the hepatic parenchymal cortex suggestive for fatty infiltration versus hepatic parenchymal disease. Clinical correlation. Please note portal venous flow was not well documented on this study. Clinical correlation. Pancreas not well visualized. Mild fullness versus mild hydronephrosis of the right renal collecting system.
[2018-10-18] MEDS: Albuterol-Ipratrop 3 mg / 0.5 (3 ml) UD INH SCH ×2 (09:04→14:24)
[2018-10-18] MEDS: Magnesium Sulfate 1 gm in D5W 1 GM/100 ML BAG IVPB SCH ×2 (09:31→10:10)
[2018-10-18] MEDS ORDERED: Pantoprazole 40 mg EC Tab PO SCH (10:00)
[2018-10-18] MEDS ORDERED: Multiple Vitamins Tab PO SCH (10:00)
[2018-10-18] MEDS ORDERED: Albumin Human 25% (12.5 gm/50 ml) IV SCH (11:15)
[2018-10-18] MEDS ORDERED: Phenylephrine 30 MG in Sodium Chloride 0.9% 250 ML IV PRN (11:16)
[2018-10-18] MEDS ORDERED: Sodium Chloride 0.9% 3,000 ML IV ONE (11:39)
[2018-10-18] MEDS ORDERED: Midazolam 50 mg/10 ml 100 MG in Dextrose 5% In Water 80 ML IV SCH (11:45)
--- NOTE | 2018-10-18 11:57 | CT ---
Date of service: 10/17/2018 PROCEDURE: CT Angiography of the Brain and Neck. HISTORY: code stroke COMPARISON: None available. TECHNIQUE: CT angiography of the head and neck was performed following intravenous contrast administration. Coronal and sagittal maximum intensity projection reformatted images were generated. Contrast Dose: Visipaque 320, 100 cc Radiation dose: Total exam DLP = 573.29 mGy-cm. This CT exam was performed using one or more of the following dose reduction techniques: Automated exposure control, adjustment of the mA and/or kV according to patient size, and/or use of iterative reconstruction technique. FINDINGS: INTERNAL CEREBRAL ARTERIES: Unremarkable. The skull base, petrous, cavernous and supraclinoid segments are bilaterally widely patent. ANTERIOR CEREBRAL ARTERIES: Unremarkable. A1 and A2 segments are widely patent. Smaller distal branches unremarkable, as visualized. MIDDLE CEREBRAL ARTERIES: Unremarkable. M1 and M2 segments are widely patent. Perisylvian branches grossly symmetric. POSTERIOR CIRCULATION: Basilar Artery: Unremarkable. 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 No occlusion bilaterally. Posterior Cerebral Arteries: Unremarkable. Posterior Inferior Cerebellar Arteries: Unremarkable. NECK CTA: Common Carotid arteries: The bilateral common carotid appear widely patent from their origins to their bifurcations with no significant stenosis appreciated. No evidence to suggest common carotid artery dissection. Internal Carotid arteries: No significant stenosis is appreciated throughout the cervical internal carotid artery segments bilaterally and there is no evidence of dissection either. External Carotid arteries: Appear unremarkable bilaterally. Vertebral arteries: The bilateral vertebral arteries appear normal in caliber from their origins to their distal cervical segments. No significant stenosis or definite pattern of dissection. ANEURYSM/ VASCULAR MALFORMATIONS: None. OTHER FINDINGS: None. IMPRESSION: No significant stenosis or occlusion is appreciated in CT angiography of the brain and neck. 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
[2018-10-18] MEDS ORDERED: Dextrose 50% SYRINGE Inj (50 ml) IV STA (12:00)
[2018-10-18] MEDS ORDERED: Piperacill/Tazo 2.25gm in Dex 2.25 GM/50 ML BAG IVPB SCH (12:00)
[2018-10-18] MEDS ORDERED: Dextrose 50% SYRINGE Inj (50 ml) ONE (12:00)
[2018-10-18 12:41] VITALS: TEMP 101.6
[2018-10-18] MEDS ORDERED: Acetaminophen 650mg/20.3ml solution UD PO ONE (12:45)
--- NOTE | 2018-10-18 12:48 | PN ---
DATE: 10/18/2018 LOCATION: ICU 11. SUBJECTIVE: This is a 57-year-old male seen and examined initially for GI consultation yesterday. Re-examined again today with reported coffee-ground material in the NG tube, believed to be secondary to upper GI blood loss, but without any significant clinical changes. The entire chart is reviewed including but not limited to most recent lab and radiology study results, current and the previous medication list, current and the previous medical events. Case discussed with the staff at length. Today's lab results showed subsequent drop of hemoglobin to 8.4, hematocrit 23.9 with thrombocytopenia of 64 and abnormal ABGs with BUN of 36, creatinine 2.2, calcium 7.5, phosphorus 1.7 with low magnesium and ammonia level of 299. Urinalysis report is seen. All the available radiology study results seen. PHYSICAL EXAMINATION: GENERAL: A 57-year-old male. VITAL SIGNS: Afebrile with pulse of 102, blood pressure of 82/42. HEENT: Showed pale dry oral mucous membrane. Nonicteric sclerae. LUNGS: Few scattered crepitation. Decreased air entry at bases. HEART: Positive S1 and S2. ABDOMEN: Soft. Bowel sounds are present. No mass or organomegaly. No rebound tenderness or guarding. EXTREMITIES: With mild lower extremity edematous changes. The patient is still intubated to vent. IMPRESSION: 1. Upper gastrointestinal blood loss. 2. Anemia secondary to above as well as most likely chronic disease. 3. Change of mental status of unclear etiology. 4. Known history of hypertension, chronic lower extremities pain syndrome with peripheral edema. 5. Dehydration with renal insufficiency. Thrombocytopenia of unclear etiology that could be secondary to drug-induced. 6. Abnormal liver function test with AST 204 but ALT of 20 with total bilirubin of 7.6, most likely secondary to alcohol-induced liver cirrhosis with hepatic encephalopathy and increased ammonia level. SUGGESTIONS: 1. Continue current management. 2. Lactulose through the NG tube. 3. through the NG tube. 4. Endoscopic evaluation of the GI tract after receiving consent from the family. Further recommendation to follow. Garrett Lei MD [facility] # [id number]
[2018-10-18] MEDS ORDERED: Mannitol 12.5 gm/50 ml Inj IV SCH (14:15)
--- NOTE | 2018-10-18 14:31 | CT ---
CT chest abdomen and pelvis HISTORY: Bruising. COMPARISON: None available. TECHNIQUE: Multiple contiguous axial images were performed through the chest, abdomen, and pelvis with the use of intravenous contrast. Subsequently, sagittal and coronal reformatted images were obtained. This CT exam was performed using one or more of the following dose reduction techniques: Automated exposure control, adjustment of the mA and/or kV according to patient size, and/or use of iterative reconstruction technique. Findings: CT chest: No significant axillary adenopathy. Heterogeneity of the thyroid. Aortic atherosclerotic calcification and plaque. Aneurysmal prominence of the ascending aorta measuring 3.5 centimeters. Shotty mediastinal and hilar lymph nodes. Coronary calcification. No pleural or pericardial effusion. Moderately enlarged heart. Degenerative changes in the spine. Chronic deformity of the posterior right 11th rib. Cortical irregularity at the anterior aspect of the left 5th rib as demonstrated on series 4, image 76 which may represent a nondisplaced fracture. Clinical correlation. Postsurgical and degenerative changes in the spine. Right lung: Scattered atelectasis. Left lung: Scattered atelectasis. Inspissated secretions seen within the posterior aspect of the trachea. CT abdomen and pelvis: Prominent liver with diffuse fatty infiltration. Distended gallbladder. Splenule. Spleen otherwise preserved. Adrenal glands are preserved. Fatty atrophy of the pancreas. Small hiatal hernia. Distended stomach. Few distended loops of small bowel seen within the upper mid abdomen which may represent enteritis. Right kidney: Contrast within the right renal collecting system and ureter. Left Kidney: Contrast within the left renal collecting system and ureter. Contrast within the posterior aspect of the distended urinary bladder. Heterogeneous prostate. Evaluation of the lower abdominal bowel demonstrates underdistention of the descending and sigmoid colons. Fluid noted the right paracolic gutter. Mild thickening of the cecum as well as proximal to mid ascending colon with some adjacent fat stranding. Thickening of the terminal ileum. This may represent the sequelae of acute infectious and or inflammatory changes. Appendix not well identified on this study. Clinical correlation. Aortic atherosclerotic calcification and plaque. Few shotty para-aortic, mesenteric, and inguinal lymph nodes. Small fat containing umbilical hernia. Degenerative changes in the spine. Bridging sclerosis of the right SI joint. Prominent posterior disc osteophyte complex at the L5-S1 level. Impression: CT chest: 1. Cortical irregularity at the anterior aspect of the left 5th rib as demonstrated on series 4, image 76 which may represent a nondisplaced fracture. Clinical correlation. 2. Chronic deformity of the posterior right 11th rib. 3. Moderately enlarged heart. CT abdomen and pelvis: 1. Fluid noted in the right paracolic gutter. Mild thickening of the cecum as well as proximal to mid ascending colon with some adjacent fat stranding. Thickening of the terminal ileum. This may represent the sequelae of acute infectious and or inflammatory changes. Appendix not well identified on this study. Clinical correlation. 2. Few distended loops of small bowel seen within the upper mid abdomen which may represent enteritis. 3. Prominent liver with diffuse fatty infiltration. 4. Distended gallbladder. Additional findings as above. A preliminary report was generated at 8:02 p.m. on 10/17/[address] Gregorio Roberts from [employer].
[2018-10-18 15:00] VITALS: BP 52/0
[2018-10-18 15:06] VITALS: PULSE 111; RESP 40; O2SAT 72
--- NOTE | 2018-10-18 15:39 | CP.PCM.PRO ---
Pronouncement of Note - Clinical Findings Physical Exam: No Response Verbal/Painful Stimuli, Absent Peripheral Puls es{Carotid & Femoral}, Absent Heart & Breath Sounds, No Pupillary Light Reflex, No Corneal Reflex, Pupils Fixed & Dilated, Absence of Vital Signs - Notifications Pronouncement Notifications: Family Notified, Atending Notified Ui Programmer Notified: Yes - Autopsy Autopsy Requested: No [place] [id number]
--- NOTE | 2018-10-18 15:55 | CP.CCUPN ---
CCU Subjective - Physician Review Subjective (Free Text): 10/18/18 15:56 comatose and developed seizure activity. CCU Objective - Vital Signs / Intake & Output Vital Signs (Last 4 hours): Vital Signs Temp Pulse Resp BP Pulse Ox 10/18/18 15:05 111 H 40 H 72 L 10/18/18 15:00 130 H 32 H 90 L 10/18/18 14:59 52/0 L 10/18/18 14:49 105 H 18 70/36 L 92 L 10/18/18 14:48 113 H 18 76/38 L 92 L 10/18/18 14:30 103 H 28 H 91 L 10/18/18 14:20 110 H 15 76/28 L 95 10/18/18 14:05 104 H 12 76/25 L 96 10/18/18 14:00 102 H 34 H 88 L 10/18/18 13:52 106 H 20 73/25 L 97 10/18/18 13:50 122 H 32 H 44/15 L 94 L 10/18/18 13:36 107 H 19 88/34 L 97 10/18/18 13:30 105 H 38 H 87 L 10/18/18 13:21 101.6 F H 103 H 17 75/25 L 96 10/18/18 13:06 106 H 18 74/32 L 96 10/18/18 13:00 109 H 23 98 10/18/18 12:51 99 H 21 68/30 L 97 10/18/18 12:30 104 H 15 98 10/18/18 12:27 98 H 14 78/21 L 98 10/18/18 12:00 101.6 F H 102 H 22 62/25 L 99 10/18/18 11:56 106 H 20 65/25 L 97 10/18/18 11:54 104 H 19 65/25 L 98 Intake and Output (Last 8hrs): Intake & Output 10/18/18 10/18/18 10/18/18 06:59 14:59 22:59 Intake Total 1288.0 5841.8 Output Total 1575 40 Balance -287.0 5801.8 Weight 240 lb 1.6 oz Intake: IV 479 Intake, IV Amount 1288.0 5050.8 Left Forearm 60 3710 Right Antecubital 488 Right Distal Port 350 187.2 Right Distal Port Y site 13.8 Right Medial Port 252 378 Right Proximal Port 78.0 133.8 Right Proximal Port Y 60 site Right medial Port y-site 520 Right promixmal port 18 stopcock left fa y-site 60 30 Oral 0 0 Blood Product 312 Output: Gastric Amount 700 Stomach 700 Urine 875 40 Urethral (Perez) 875 40 Stool 0 0 Other: # Bowel Movements 0 - Physical Exam Head: Positive for: Atraumatic, Normocephalic, Tenderness, Contusion, Swelling, Ecchymosis, Abrasion, Laceration, Other Pupils: Positive for: Non-Reactive Conjunctiva: Positive for: Other (edematous) Mouth: Positive for: Moist Mucous Membranes, Dry, Drooling, Trismus, Normal Lips, Normal Tounge, Normal Teeth, Other Pharnyx: Positive for: Normal, ERYTHEMA, EXUDATE, TONSILS ENLARGED, Peritonsilar Swelling, Uvular Deviation, Muffled/Hoarse Voice, Str[place], Soft Palate/Uvular Edema, Other Respiratory/Chest: Positive for: Clear to Auscultation Cardiovascular: Positive for: Regular Rate and Rhythm, Normal S1, S2 Abdomen: Positive for: Distention. Negative for: Tenderness, Normal Bowel Sounds (ascites) Upper Extremity: Positive for: Normal Inspection Lower Extremity: Positive for: Normal Inspection Neurological: Negative for: GCS=15 Psychiatric: Negative for: Alert - Medications Active Medications: Active Medications Generic Name Dose Route Start Last Admin Trade Name Freq PRN Reason Stop Dose Admin Acetazolamide 500 mg 10/18/18 09:30 10/18/18 09:33 Diamox 500 Mg Inj IV 10/18/18 21:31 500 mg Q12H SHARRI Administration Albumin Human 12.5 gm 10/18/18 11:15 10/18/18 11:52 Albumin Human 25% (12.5 Gm/50 Ml) IV 12.5 gm Q8H SHARRI Administration Albuterol/Ipratropium 3 ml 10/18/18 08:00 10/18/18 14:24 Duoneb 3 Mg/0.5 Mg (3 Ml) Ud INH 3 ml RQ6 SHARRI Administration Hydrocortisone Sodium Succinate 100 mg 10/18/18 11:30 10/18/18 11:42 Solu-Cortef IVP Not Given Q8H SHARRI Folic Acid 1 mg/ Thiamine HCl 1,011.2 mls @ 42 mls/hr 10/17/18 23:45 10/18/18 01:06 100 mg/ Multivitamins/Vitamin IV 42 mls/hr C 10 ml/ Dextrose .Q24H SHARRI Administration Propofol 1,000 mg in 100 mls @ 3.606 mls/hr 10/18/18 00:21 10/18/18 10:51 Diprivan IV Infused .Q24H PRN Titration TITRATE PER MD ORDER Protocol 5 MCG/KG/MIN Octreotide Acetate 1,250 mcg/ 252.5 mls @ 10.1 mls/hr 10/18/18 01:00 10/18/18 02:13 Dextrose SC 10.1 mls/hr .Q24H PRN Administration Protocol 50 MCG/HR Vancomycin HCl 1 gm/ Sodium 250 mls @ 166.7 mls/hr 10/18/18 01:00 10/18/18 01:42 Chloride IVPB 166.7 mls/hr Q24H SHARRI Administration Protocol Norepinephrine Bitartrate 4 mg 254 mls @ 15.24 mls/hr 10/18/18 03:30 10/18/18 14:48 / Sodium Chloride IV 6.14 mcg/min .[id number] PRN 23.4 mls/hr TITRATE PER MD ORDER Administration Protocol 4 MCG/MIN Fentanyl Citrate 2,500 mcg/ 250 mls @ 21.78 mls/hr 10/18/18 09:00 10/18/18 09:31 Sodium Chloride IV 2 mcg/kg/hr .[id number] SHARRI 21.78 mls/hr Administration Protocol 2 MCG/KG/HR Vasopressin 40 units/ Sodium 42 mls @ 0.63 mls/hr 10/18/18 09:00 10/18/18 14:49 Chloride IV 0.04 units/min .Q24H SHARRI 2.52 mls/hr Administration Protocol 0.01 UNITS/MIN Phenylephrine HCl 30 mg/ 253 mls @ 10.12 mls/hr 10/18/18 11:16 10/18/18 13:21 Sodium Chloride IV 180 mcg/min .Q24H PRN 91.08 mls/hr TITRATE PER MD ORDER Titration Protocol 20 MCG/MIN Midazolam HCl 100 mg/ Dextrose 100 mls @ 2.18 mls/hr 10/18/18 11:45 10/18/18 14:00 IV 0.06 mg/kg/hr .Q24H SHARRI 6.53 mls/hr Titration Protocol 0.02 MG/KG/HR Piperacillin Sod/Tazobactam Sod 2.25 gm in 50 mls @ 100 mls/hr 10/18/18 12:00 10/18/18 12:22 Zosyn 2.25 Gm Iv Premix IVPB 100 mls/hr Q6H SHARRI Administration Protocol Levetiracetam 500 mg/ Dextrose 105 mls @ 420 mls/hr 10/19/18 02:00 IVPB Q12H SHARRI Mannitol 500 mls @ 500 mls/hr 10/18/18 14:45 10/18/18 14:44 Mannitol IV 10/19/18 03:44 500 mls/hr Q6H SHARRI Administration Lactulose 20 gm 10/17/18 22:30 10/18/18 13:33 Enulose NG 20 gm Q8H SHARRI Administration Multivitamins 1 tab 10/18/18 10:00 10/18/18 11:50 Hexavitamin PO 1 tab DAILY SHARRI Administration Neomycin Sulfate 500 mg 10/18/18 08:30 10/18/18 13:33 Neomycin Tab PO 500 mg Q6H SHARRI Administration Pantoprazole Sodium 40 mg 10/18/18 11:30 10/18/18 11:52 Protonix Inj IVP 40 mg Q12H SHARRI Administration Rifaximin 550 mg 10/17/18 23:45 10/18/18 11:50 Xifaxan PO 550 mg BID SHARRI Administration Protocol Thiamine HCl 100 mg 10/18/18 10:00 10/18/18 11:50 Vitamin B1 Tab PO 100 mg DAILY SHARRI Administration - Patient Studies Lab Studies: Lab Studies 10/18/18 10/18/18 10/18/18 Range/Units 13:32 13:32 11:52 WBC (4.8-10.8) K/uL RBC (4.40-5.90) Mil/uL Hgb (12.0-18.0) g/dL Hct (35.0-51.0) % MCV (80.0-94.0) fL MCH (27.0-31.0) pg MCHC (33.0-37.0) g/dL RDW (11.5-14.5) % Plt Count (130-400) K/uL MPV (7.2-11.7) fL Neut % (Auto) (50.0-75.0) % Lymph % (Auto) (20.0-40.0) % [place] % (Auto) (0.0-10.0) % Eos % (Auto) (0.0-4.0) % Baso % (Auto) (0.0-2.0) % Neut # (Auto) (1.8-7.0) K/uL Lymph # (Auto) (1.0-4.3) K/uL [place] # (Auto) (0.0-0.8) K/uL Eos # (Auto) (0.0-0.7) K/uL Baso # (Auto) (0.0-0.2) K/uL Differential Comment PT (9.7-12.2) SECONDS INR APTT (21-34) SECONDS Puncture Site pCO2 (35-45) mm/Hg pO2 (80-100) mm/Hg HCO3 (21-28) mmol/L ABG pH (7.35-7.45) ABG Total CO2 (22-28) mmol/L ABG O2 Saturation (95-98) % ABG Base Excess (-2.0-3.0) mmol/L ABG Hemoglobin (11.7-17.4) g/dL ABG Carboxyhemoglobin (0.5-1.5) % POC ABG HHb (Measured) (0.0-5.0) % ABG Methemoglobin (0.0-3.0) % Bertrand Test ABG Potassium (3.6-5.2) mmol/L A-a O2 Difference mm/Hg Respiratory Index Hgb O2 Saturation (95.0-98.0) % Glucose (75-110) mg/dl Lactate (0.7-2.1) mmol/L Liter Flow Vent Mode Mechanical Rate FiO2 % PEEP Crit Value Called To Crit Value Called By Crit Value Read Back Blood Gas Notified Time Sodium (132-148) mmol/L Potassium (3.6-5.2) mmol/L Chloride (98-107) mmol/L Carbon Dioxide (22-30) mmol/L Anion Gap (10-20) BUN (9-20) mg/dL Creatinine (0.8-1.5) mg/dL Est GFR ( Amer) Est GFR (Non-Af Amer) POC Glucose (mg/dL) 61 L (65-110) mg/dL Random Glucose (75-110) mg/dL Hemoglobin A1c (4.2-6.5) % Calcium (8.6-10.4) mg/dl Phosphorus (2.5-4.5) mg/dL Magnesium (1.6-2.3) mg/dL Total Bilirubin (0.2-1.3) mg/dL AST (17-59) U/L ALT (21-72) U/L Alkaline Phosphatase (38-126) U/L Ammonia (9-33) umol/L Total Creatine Kinase (55-170) U/L Troponin I (0.00-0.120) ng/mL NT-Pro-B Natriuret Pep (0-900) pg/mL Total Protein (6.3-8.3) g/dL Albumin (3.5-5.0) g/dL Globulin (2.2-3.9) gm/dL Albumin/Globulin Ratio (1.0-2.1) Triglycerides (0-149) mg/dL Cholesterol (0-199) mg/dL LDL Cholesterol Direct (0-129) mg/dL HDL Cholesterol (30-70) mg/dL Alpha Fetoprotein 2.5 (0.0-7.5) ng/mL Carcinoembryonic Ag 11.3 H (0-3.0) ng/mL Arterial Blood Potassium (3.6-5.2) mmol/L Urine Color (YELLOW) Urine Clarity (Clear) Urine pH (5.0-8.0) Ur Specific [place] (1.003-1.030) Urine Protein (NEGATIVE) mg/dL Urine Glucose (UA) (Normal) mg/dL Urine Ketones (NEGATIVE) mg/dL Urine Blood (NEGATIVE) Urine Nitrate (NEGATIVE) Urine Bilirubin (NEGATIVE) Urine Urobilinogen (0.2-1.0) mg/dL Ur Leukocyte Esterase (Negative) Rosetta/uL Urine WBC (Auto) (0-5) /hpf Urine RBC (Auto) (0-3) /hpf Ur Squamous Epith Cells (0-5) /hpf Urine Bacteria (<OCC) Urine Opiates Screen (NEGATIVE) Urine Methadone Screen (NEGATIVE) Ur Barbiturates Screen (NEGATIVE) Ur Phencyclidine Scrn (NEGATIVE) Ur Amphetamines Screen (NEGATIVE) U Benzodiazepines Scrn (NEGATIVE) U Oth Cocaine Metabols (NEGATIVE) U Cannabinoids Screen (NEGATIVE) Alcohol, Quantitative (0-10) mg/dl Blood Type Antibody Screen 10/18/18 10/18/18 10/18/18 Range/Units 11:51 06:43 06:43 WBC (4.8-10.8) K/uL RBC (4.40-5.90) Mil/uL Hgb (12.0-18.0) g/dL Hct (35.0-51.0) % MCV (80.0-94.0) fL MCH (27.0-31.0) pg MCHC (33.0-37.0) g/dL RDW (11.5-14.5) % Plt Count (130-400) K/uL MPV (7.2-11.7) fL Neut % (Auto) (50.0-75.0) % Lymph % (Auto) (20.0-40.0) % [place] % (Auto) (0.0-10.0) % Eos % (Auto) (0.0-4.0) % Baso % (Auto) (0.0-2.0) % Neut # (Auto) (1.8-7.0) K/uL Lymph # (Auto) (1.0-4.3) K/uL [place] # (Auto) (0.0-0.8) K/uL Eos # (Auto) (0.0-0.7) K/uL Baso # (Auto) (0.0-0.2) K/uL Differential Comment PT (9.7-12.2) SECONDS INR APTT (21-34) SECONDS Puncture Site pCO2 (35-45) mm/Hg pO2 (80-100) mm/Hg HCO3 (21-28) mmol/L ABG pH (7.35-7.45) ABG Total CO2 (22-28) mmol/L ABG O2 Saturation (95-98) % ABG Base Excess (-2.0-3.0) mmol/L ABG Hemoglobin (11.7-17.4) g/dL ABG Carboxyhemoglobin (0.5-1.5) % POC ABG HHb (Measured) (0.0-5.0) % ABG Methemoglobin (0.0-3.0) % Bertrand Test ABG Potassium (3.6-5.2) mmol/L A-a O2 Difference mm/Hg Respiratory Index Hgb O2 Saturation (95.0-98.0) % Glucose (75-110) mg/dl Lactate (0.7-2.1) mmol/L Liter Flow Vent Mode Mechanical Rate FiO2 % PEEP Crit Value Called To Crit Value Called By Crit Value Read Back Blood Gas Notified Time Sodium 136 (132-148) mmol/L Potassium 4.1 (3.6-5.2) mmol/L Chloride 93 L (98-107) mmol/L Carbon Dioxide 23 (22-30) mmol/L Anion Gap 23 H (10-20) BUN 36 H (9-20) mg/dL Creatinine 2.2 H (0.8-1.5) mg/dL Est GFR ( Amer) 38 Est GFR (Non-Af Amer) 31 POC Glucose (mg/dL) 55 L (65-110) mg/dL Random Glucose 75 (75-110) mg/dL Hemoglobin A1c (4.2-6.5) % Calcium 7.5 L (8.6-10.4) mg/dl Phosphorus 1.7 L (2.5-4.5) mg/dL Magnesium 1.0 L* D (1.6-2.3) mg/dL Total Bilirubin (0.2-1.3) mg/dL AST (17-59) U/L ALT (21-72) U/L Alkaline Phosphatase (38-126) U/L Ammonia 299 H D (9-33) umol/L Total Creatine Kinase (55-170) U/L Troponin I (0.00-0.120) ng/mL NT-Pro-B Natriuret Pep (0-900) pg/mL Total Protein (6.3-8.3) g/dL Albumin (3.5-5.0) g/dL Globulin (2.2-3.9) gm/dL Albumin/Globulin Ratio (1.0-2.1) Triglycerides (0-149) mg/dL Cholesterol (0-199) mg/dL LDL Cholesterol Direct (0-129) mg/dL HDL Cholesterol (30-70) mg/dL Alpha Fetoprotein (0.0-7.5) ng/mL Carcinoembryonic Ag (0-3.0) ng/mL Arterial Blood Potassium (3.6-5.2) mmol/L Urine Color (YELLOW) Urine Clarity (Clear) Urine pH (5.0-8.0) Ur Specific [place] (1.003-1.030) Urine Protein (NEGATIVE) mg/dL Urine Glucose (UA) (Normal) mg/dL Urine Ketones (NEGATIVE) mg/dL Urine Blood (NEGATIVE) Urine Nitrate (NEGATIVE) Urine Bilirubin (NEGATIVE) Urine Urobilinogen (0.2-1.0) mg/dL Ur Leukocyte Esterase (Negative) [place]/uL Urine WBC (Auto) (0-5) /hpf Urine RBC (Auto) (0-3) /hpf Ur Squamous Epith Cells (0-5) /hpf Urine Bacteria (<OCC) Urine Opiates Screen (NEGATIVE) Urine Methadone Screen (NEGATIVE) Ur Barbiturates Screen (NEGATIVE) Ur Phencyclidine Scrn (NEGATIVE) Ur Amphetamines Screen (NEGATIVE) U Benzodiazepines Scrn (NEGATIVE) U Oth Cocaine Metabols (NEGATIVE) U Cannabinoids Screen (NEGATIVE) Alcohol, Quantitative (0-10) mg/dl Blood Type Antibody Screen 10/18/18 10/18/18 10/18/18 Range/Units 06:43 06:15 06:13 WBC 8.8 (4.8-10.8) K/uL RBC 2.34 L (4.40-5.90) Mil/uL Hgb 8.4 L D (12.0-18.0) g/dL Hct 23.9 L (35.0-51.0) % MCV 102.3 H (80.0-94.0) fL MCH 35.9 H (27.0-31.0) pg MCHC 35.1 (33.0-37.0) g/dL RDW 18.2 H (11.5-14.5) % Plt Count 64 L (130-400) K/uL MPV 9.6 (7.2-11.7) fL Neut % (Auto) 59.9 (50.0-75.0) % Lymph % (Auto) 29.6 (20.0-40.0) % [place] % (Auto) 8.7 (0.0-10.0) % Eos % (Auto) 0.4 (0.0-4.0) % Baso % (Auto) 1.4 (0.0-2.0) % Neut # (Auto) 5.3 (1.8-7.0) K/uL Lymph # (Auto) 2.6 (1.0-4.3) K/uL [place] # (Auto) 0.8 (0.0-0.8) K/uL Eos # (Auto) 0.0 (0.0-0.7) K/uL Baso # (Auto) 0.1 (0.0-0.2) K/uL Differential Comment PT (9.7-12.2) SECONDS INR APTT (21-34) SECONDS Puncture Site pCO2 (35-45) mm/Hg pO2 (80-100) mm/Hg HCO3 (21-28) mmol/L ABG pH (7.35-7.45) ABG Total CO2 (22-28) mmol/L ABG O2 Saturation (95-98) % ABG Base Excess (-2.0-3.0) mmol/L ABG Hemoglobin (11.7-17.4) g/dL ABG Carboxyhemoglobin (0.5-1.5) % POC ABG HHb (Measured) (0.0-5.0) % ABG Methemoglobin (0.0-3.0) % Bertrand Test ABG Potassium (3.6-5.2) mmol/L A-a O2 Difference mm/Hg Respiratory Index Hgb O2 Saturation (95.0-98.0) % Glucose (75-110) mg/dl Lactate (0.7-2.1) mmol/L Liter Flow Vent Mode Mechanical Rate FiO2 % PEEP Crit Value Called To Crit Value Called By Crit Value Read Back Blood Gas Notified Time Sodium (132-148) mmol/L Potassium (3.6-5.2) mmol/L Chloride (98-107) mmol/L Carbon Dioxide (22-30) mmol/L Anion Gap (10-20) BUN (9-20) mg/dL Creatinine (0.8-1.5) mg/dL Est GFR ( Amer) Est GFR (Non-Af Amer) POC Glucose (mg/dL) 70 67 (65-110) mg/dL Random Glucose (75-110) mg/dL Hemoglobin A1c (4.2-6.5) % Calcium (8.6-10.4) mg/dl Phosphorus (2.5-4.5) mg/dL Magnesium (1.6-2.3) mg/dL Total Bilirubin (0.2-1.3) mg/dL AST (17-59) U/L ALT (21-72) U/L Alkaline Phosphatase (38-126) U/L Ammonia (9-33) umol/L Total Creatine Kinase (55-170) U/L Troponin I (0.00-0.120) ng/mL NT-Pro-B Natriuret Pep (0-900) pg/mL Total Protein (6.3-8.3) g/dL Albumin (3.5-5.0) g/dL Globulin (2.2-3.9) gm/dL Albumin/Globulin Ratio (1.0-2.1) Triglycerides (0-149) mg/dL Cholesterol (0-199) mg/dL LDL Cholesterol Direct (0-129) mg/dL HDL Cholesterol (30-70) mg/dL Alpha Fetoprotein (0.0-7.5) ng/mL Carcinoembryonic Ag (0-3.0) ng/mL Arterial Blood Potassium (3.6-5.2) mmol/L Urine Color (YELLOW) Urine Clarity (Clear) Urine pH (5.0-8.0) Ur Specific [place] (1.003-1.030) Urine Protein (NEGATIVE) mg/dL Urine Glucose (UA) (Normal) mg/dL Urine Ketones (NEGATIVE) mg/dL Urine Blood (NEGATIVE) Urine Nitrate (NEGATIVE) Urine Bilirubin (NEGATIVE) Urine Urobilinogen (0.2-1.0) mg/dL Ur Leukocyte Esterase (Negative) [place]/uL Urine WBC (Auto) (0-5) /hpf Urine RBC (Auto) (0-3) /hpf Ur Squamous Epith Cells (0-5) /hpf Urine Bacteria (<OCC) Urine Opiates Screen (NEGATIVE) Urine Methadone Screen (NEGATIVE) Ur Barbiturates Screen (NEGATIVE) Ur Phencyclidine Scrn (NEGATIVE) Ur Amphetamines Screen (NEGATIVE) U Benzodiazepines Scrn (NEGATIVE) U Oth Cocaine Metabols (NEGATIVE) U Cannabinoids Screen (NEGATIVE) Alcohol, Quantitative (0-10) mg/dl Blood Type Antibody Screen 10/18/18 10/18/18 10/17/18 Range/Units 05:51 05:30 23:55 WBC (4.8-10.8) K/uL RBC (4.40-5.90) Mil/uL Hgb (12.0-18.0) g/dL Hct (35.0-51.0) % MCV (80.0-94.0) fL MCH (27.0-31.0) pg MCHC (33.0-37.0) g/dL RDW (11.5-14.5) % Plt Count (130-400) K/uL MPV (7.2-11.7) fL Neut % (Auto) (50.0-75.0) % Lymph % (Auto) (20.0-40.0) % [place] % (Auto) (0.0-10.0) % Eos % (Auto) (0.0-4.0) % Baso % (Auto) (0.0-2.0) % Neut # (Auto) (1.8-7.0) K/uL Lymph # (Auto) (1.0-4.3) K/uL [place] # (Auto) (0.0-0.8) K/uL Eos # (Auto) (0.0-0.7) K/uL Baso # (Auto) (0.0-0.2) K/uL Differential Comment PT (9.7-12.2) SECONDS INR APTT (21-34) SECONDS Puncture Site Radial Lfem pCO2 22 L 26 L (35-45) mm/Hg pO2 216 H 80 (80-100) mm/Hg HCO3 28.0 31.1 H (21-28) mmol/L ABG pH 7.65 H* 7.64 H* (7.35-7.45) ABG Total CO2 24.9 28.8 H (22-28) mmol/L ABG O2 Saturation 100.1 H 98.8 H (95-98) % ABG Base Excess 3.9 H 7.9 H (-2.0-3.0) mmol/L ABG Hemoglobin 8.8 L (11.7-17.4) g/dL ABG Carboxyhemoglobin 1.9 H (0.5-1.5) % POC ABG HHb (Measured) -0.1 L (0.0-5.0) % ABG Methemoglobin 1.1 (0.0-3.0) % Bertrand Test Neg Neg ABG Potassium 3.4 L (3.6-5.2) mmol/L A-a O2 Difference 184.0 116.0 mm/Hg Respiratory Index 0.9 1.5 Hgb O2 Saturation 97.2 (95.0-98.0) % Glucose 96 (75-110) mg/dl Lactate 5.0 H* (0.7-2.1) mmol/L Liter Flow 3.0 Vent Mode Simv/pc Mechanical Rate 18 FiO2 60.0 32.0 % PEEP 5 Crit Value Called To Dr. katie florence Crit Value Called By mohinder Nassar rcp Crit Value Read Back Y Y Blood Gas Notified Time 605 15 Sodium 138.0 (132-148) mmol/L Potassium (3.6-5.2) mmol/L Chloride 102.0 (98-107) mmol/L Carbon Dioxide (22-30) mmol/L Anion Gap (10-20) BUN (9-20) mg/dL Creatinine (0.8-1.5) mg/dL Est GFR ( Amer) Est GFR (Non-Af Amer) POC Glucose (mg/dL) (65-110) mg/dL Random Glucose (75-110) mg/dL Hemoglobin A1c (4.2-6.5) % Calcium (8.6-10.4) mg/dl Phosphorus (2.5-4.5) mg/dL Magnesium (1.6-2.3) mg/dL Total Bilirubin (0.2-1.3) mg/dL AST (17-59) U/L ALT (21-72) U/L Alkaline Phosphatase (38-126) U/L Ammonia (9-33) umol/L Total Creatine Kinase (55-170) U/L Troponin I (0.00-0.120) ng/mL NT-Pro-B Natriuret Pep (0-900) pg/mL Total Protein (6.3-8.3) g/dL Albumin (3.5-5.0) g/dL Globulin (2.2-3.9) gm/dL Albumin/Globulin Ratio (1.0-2.1) Triglycerides (0-149) mg/dL Cholesterol (0-199) mg/dL LDL Cholesterol Direct (0-129) mg/dL HDL Cholesterol (30-70) mg/dL Alpha Fetoprotein (0.0-7.5) ng/mL Carcinoembryonic Ag (0-3.0) ng/mL Arterial Blood Potassium 3.4 L (3.6-5.2) mmol/L Urine Color [place] (YELLOW) Urine Clarity Clear (Clear) Urine pH 6.0 (5.0-8.0) Ur Specific [place] 1.045 H (1.003-1.030) Urine Protein 1+ H (NEGATIVE) mg/dL Urine Glucose (UA) Normal (Normal) mg/dL Urine Ketones Negative (NEGATIVE) mg/dL Urine Blood 2+ H (NEGATIVE) Urine Nitrate Negative (NEGATIVE) Urine Bilirubin 1+ H (NEGATIVE) Urine Urobilinogen 4.0 (0.2-1.0) mg/dL Ur Leukocyte Esterase Trace (Negative) [place]/uL Urine WBC (Auto) 14 H (0-5) /hpf Urine RBC (Auto) 33 H (0-3) /hpf Ur Squamous Epith Cells 9 H (0-5) /hpf Urine Bacteria Rare (<OCC) Urine Opiates Screen (NEGATIVE) Urine Methadone Screen (NEGATIVE) Ur Barbiturates Screen (NEGATIVE) Ur Phencyclidine Scrn (NEGATIVE) Ur Amphetamines Screen (NEGATIVE) U Benzodiazepines Scrn (NEGATIVE) U Oth Cocaine Metabols (NEGATIVE) U Cannabinoids Screen (NEGATIVE) Alcohol, Quantitative (0-10) mg/dl Blood Type Antibody Screen 10/17/18 10/17/18 10/17/18 Range/Units 21:09 20:59 20:59 WBC (4.8-10.8) K/uL RBC (4.40-5.90) Mil/uL Hgb (12.0-18.0) g/dL Hct (35.0-51.0) % MCV (80.0-94.0) fL MCH (27.0-31.0) pg MCHC (33.0-37.0) g/dL RDW (11.5-14.5) % Plt Count (130-400) K/uL MPV (7.2-11.7) fL Neut % (Auto) (50.0-75.0) % Lymph % (Auto) (20.0-40.0) % [place] % (Auto) (0.0-10.0) % Eos % (Auto) (0.0-4.0) % Baso % (Auto) (0.0-2.0) % Neut # (Auto) (1.8-7.0) K/uL Lymph # (Auto) (1.0-4.3) K/uL [place] # (Auto) (0.0-0.8) K/uL Eos # (Auto) (0.0-0.7) K/uL Baso # (Auto) (0.0-0.2) K/uL Differential Comment PT (9.7-12.2) SECONDS INR APTT (21-34) SECONDS Puncture Site pCO2 (35-45) mm/Hg pO2 (80-100) mm/Hg HCO3 (21-28) mmol/L ABG pH (7.35-7.45) ABG Total CO2 (22-28) mmol/L ABG O2 Saturation (95-98) % ABG Base Excess (-2.0-3.0) mmol/L ABG Hemoglobin (11.7-17.4) g/dL ABG Carboxyhemoglobin (0.5-1.5) % POC ABG HHb (Measured) (0.0-5.0) % ABG Methemoglobin (0.0-3.0) % Bertrand Test ABG Potassium (3.6-5.2) mmol/L A-a O2 Difference mm/Hg Respiratory Index Hgb O2 Saturation (95.0-98.0) % Glucose (75-110) mg/dl Lactate (0.7-2.1) mmol/L Liter Flow Vent Mode Mechanical Rate FiO2 % PEEP Crit Value Called To Crit Value Called By Crit Value Read Back Blood Gas Notified Time Sodium (132-148) mmol/L Potassium (3.6-5.2) mmol/L Chloride (98-107) mmol/L Carbon Dioxide (22-30) mmol/L Anion Gap (10-20) BUN (9-20) mg/dL Creatinine (0.8-1.5) mg/dL Est GFR ( Amer) Est GFR (Non-Af Amer) POC Glucose (mg/dL) (65-110) mg/dL Random Glucose (75-110) mg/dL Hemoglobin A1c (4.2-6.5) % Calcium (8.6-10.4) mg/dl Phosphorus (2.5-4.5) mg/dL Magnesium (1.6-2.3) mg/dL Total Bilirubin (0.2-1.3) mg/dL AST (17-59) U/L ALT (21-72) U/L Alkaline Phosphatase (38-126) U/L Ammonia 236 H D (9-33) umol/L Total Creatine Kinase (55-170) U/L Troponin I (0.00-0.120) ng/mL NT-Pro-B Natriuret Pep (0-900) pg/mL Total Protein (6.3-8.3) g/dL Albumin (3.5-5.0) g/dL Globulin (2.2-3.9) gm/dL Albumin/Globulin Ratio (1.0-2.1) Triglycerides (0-149) mg/dL Cholesterol (0-199) mg/dL LDL Cholesterol Direct (0-129) mg/dL HDL Cholesterol (30-70) mg/dL Alpha Fetoprotein (0.0-7.5) ng/mL Carcinoembryonic Ag (0-3.0) ng/mL Arterial Blood Potassium (3.6-5.2) mmol/L Urine Color [place] (YELLOW) Urine Clarity Clear (Clear) Urine pH 6.0 (5.0-8.0) Ur Specific [place] 1.023 (1.003-1.030) Urine Protein 1+ H (NEGATIVE) mg/dL Urine Glucose (UA) Normal (Normal) mg/dL Urine Ketones Negative (NEGATIVE) mg/dL Urine Blood 2+ H (NEGATIVE) Urine Nitrate Negative (NEGATIVE) Urine Bilirubin 1+ H (NEGATIVE) Urine Urobilinogen 4.0 (0.2-1.0) mg/dL Ur Leukocyte Esterase Trace (Negative) [place]/uL Urine WBC (Auto) 17 H (0-5) /hpf Urine RBC (Auto) 6 H (0-3) /hpf Ur Squamous Epith Cells (0-5) /hpf Urine Bacteria Rare (<OCC) Urine Opiates Screen Negative (NEGATIVE) Urine Methadone Screen Negative (NEGATIVE) Ur Barbiturates Screen Negative (NEGATIVE) Ur Phencyclidine Scrn Negative (NEGATIVE) Ur Amphetamines Screen Negative (NEGATIVE) U Benzodiazepines Scrn Negative (NEGATIVE) U Oth Cocaine Metabols Negative (NEGATIVE) U Cannabinoids Screen Positive H (NEGATIVE) Alcohol, Quantitative (0-10) mg/dl Blood Type Antibody Screen 10/17/18 10/17/18 10/17/18 Range/Units 20:10 18:29 18:29 WBC (4.8-10.8) K/uL RBC (4.40-5.90) Mil/uL Hgb (12.0-18.0) g/dL Hct (35.0-51.0) % MCV (80.0-94.0) fL MCH (27.0-31.0) pg MCHC (33.0-37.0) g/dL RDW (11.5-14.5) % Plt Count (130-400) K/uL MPV (7.2-11.7) fL Neut % (Auto) (50.0-75.0) % Lymph % (Auto) (20.0-40.0) % [place] % (Auto) (0.0-10.0) % Eos % (Auto) (0.0-4.0) % Baso % (Auto) (0.0-2.0) % Neut # (Auto) (1.8-7.0) K/uL Lymph # (Auto) (1.0-4.3) K/uL [place] # (Auto) (0.0-0.8) K/uL Eos # (Auto) (0.0-0.7) K/uL Baso # (Auto) (0.0-0.2) K/uL Differential Comment PT (9.7-12.2) SECONDS INR APTT (21-34) SECONDS Puncture Site pCO2 (35-45) mm/Hg pO2 (80-100) mm/Hg HCO3 (21-28) mmol/L ABG pH (7.35-7.45) ABG Total CO2 (22-28) mmol/L ABG O2 Saturation (95-98) % ABG Base Excess (-2.0-3.0) mmol/L ABG Hemoglobin (11.7-17.4) g/dL ABG Carboxyhemoglobin (0.5-1.5) % POC ABG HHb (Measured) (0.0-5.0) % ABG Methemoglobin (0.0-3.0) % Bertrand Test ABG Potassium (3.6-5.2) mmol/L A-a O2 Difference mm/Hg Respiratory Index Hgb O2 Saturation (95.0-98.0) % Glucose (75-110) mg/dl Lactate (0.7-2.1) mmol/L Liter Flow Vent Mode Mechanical Rate FiO2 % PEEP Crit Value Called To Crit Value Called By Crit Value Read Back Blood Gas Notified Time Sodium (132-148) mmol/L Potassium (3.6-5.2) mmol/L Chloride (98-107) mmol/L Carbon Dioxide (22-30) mmol/L Anion Gap (10-20) BUN (9-20) mg/dL Creatinine (0.8-1.5) mg/dL Est GFR ( Amer) Est GFR (Non-Af Amer) POC Glucose (mg/dL) (65-110) mg/dL Random Glucose (75-110) mg/dL Hemoglobin A1c 5.2 (4.2-6.5) % Calcium (8.6-10.4) mg/dl Phosphorus (2.5-4.5) mg/dL Magnesium (1.6-2.3) mg/dL Total Bilirubin (0.2-1.3) mg/dL AST (17-59) U/L ALT (21-72) U/L Alkaline Phosphatase (38-126) U/L Ammonia (9-33) umol/L Total Creatine Kinase (55-170) U/L Troponin I (0.00-0.120) ng/mL NT-Pro-B Natriuret Pep 3360 H (0-900) pg/mL Total Protein (6.3-8.3) g/dL Albumin (3.5-5.0) g/dL Globulin (2.2-3.9) gm/dL Albumin/Globulin Ratio (1.0-2.1) Triglycerides (0-149) mg/dL Cholesterol (0-199) mg/dL LDL Cholesterol Direct (0-129) mg/dL HDL Cholesterol (30-70) mg/dL Alpha Fetoprotein (0.0-7.5) ng/mL Carcinoembryonic Ag (0-3.0) ng/mL Arterial Blood Potassium (3.6-5.2) mmol/L Urine Color (YELLOW) Urine Clarity (Clear) Urine pH (5.0-8.0) Ur Specific [place] (1.003-1.030) Urine Protein (NEGATIVE) mg/dL Urine Glucose (UA) (Normal) mg/dL Urine Ketones (NEGATIVE) mg/dL Urine Blood (NEGATIVE) Urine Nitrate (NEGATIVE) Urine Bilirubin (NEGATIVE) Urine Urobilinogen (0.2-1.0) mg/dL Ur Leukocyte Esterase (Negative) [place]/uL Urine WBC (Auto) (0-5) /hpf Urine RBC (Auto) (0-3) /hpf Ur Squamous Epith Cells (0-5) /hpf Urine Bacteria (<OCC) Urine Opiates Screen (NEGATIVE) Urine Methadone Screen (NEGATIVE) Ur Barbiturates Screen (NEGATIVE) Ur Phencyclidine Scrn (NEGATIVE) Ur Amphetamines Screen (NEGATIVE) U Benzodiazepines Scrn (NEGATIVE) U Oth Cocaine Metabols (NEGATIVE) U Cannabinoids Screen (NEGATIVE) Alcohol, Quantitative < 10 (0-10) mg/dl Blood Type O POSITIVE Antibody Screen Negative 10/17/18 10/17/18 10/17/18 Range/Units 18:29 18:29 18:29 WBC 9.1 (4.8-10.8) K/uL RBC 3.05 L (4.40-5.90) Mil/uL Hgb 10.8 L (12.0-18.0) g/dL Hct 31.2 L (35.0-51.0) % MCV 102.3 H D (80.0-94.0) fL MCH 35.4 H (27.0-31.0) pg MCHC 34.6 (33.0-37.0) g/dL RDW 18.2 H (11.5-14.5) % Plt Count 54 L D (130-400) K/uL MPV 9.3 (7.2-11.7) fL Neut % (Auto) 71.3 (50.0-75.0) % Lymph % (Auto) 17.6 L (20.0-40.0) % [place] % (Auto) 10.3 H (0.0-10.0) % Eos % (Auto) 0.2 (0.0-4.0) % Baso % (Auto) 0.6 (0.0-2.0) % Neut # (Auto) 6.5 (1.8-7.0) K/uL Lymph # (Auto) 1.6 (1.0-4.3) K/uL [place] # (Auto) 0.9 H (0.0-0.8) K/uL Eos # (Auto) 0.0 (0.0-0.7) K/uL Baso # (Auto) 0.1 (0.0-0.2) K/uL Differential Comment PT 23.2 H (9.7-12.2) SECONDS INR 2.1 APTT 40 H (21-34) SECONDS Puncture Site pCO2 (35-45) mm/Hg pO2 (80-100) mm/Hg HCO3 (21-28) mmol/L ABG pH (7.35-7.45) ABG Total CO2 (22-28) mmol/L ABG O2 Saturation (95-98) % ABG Base Excess (-2.0-3.0) mmol/L ABG Hemoglobin (11.7-17.4) g/dL ABG Carboxyhemoglobin (0.5-1.5) % POC ABG HHb (Measured) (0.0-5.0) % ABG Methemoglobin (0.0-3.0) % Bertrand Test ABG Potassium (3.6-5.2) mmol/L A-a O2 Difference mm/Hg Respiratory Index Hgb O2 Saturation (95.0-98.0) % Glucose (75-110) mg/dl Lactate (0.7-2.1) mmol/L Liter Flow Vent Mode Mechanical Rate FiO2 % PEEP Crit Value Called To Crit Value Called By Crit Value Read Back Blood Gas Notified Time Sodium 133 (132-148) mmol/L Potassium 4.4 (3.6-5.2) mmol/L Chloride 92 L (98-107) mmol/L Carbon Dioxide 29 (22-30) mmol/L Anion Gap 17 (10-20) BUN 25 H (9-20) mg/dL Creatinine 1.2 (0.8-1.5) mg/dL Est GFR ( Amer) > 60 Est GFR (Non-Af Amer) > 60 POC Glucose (mg/dL) (65-110) mg/dL Random Glucose 108 (75-110) mg/dL Hemoglobin A1c (4.2-6.5) % Calcium 7.7 L (8.6-10.4) mg/dl Phosphorus (2.5-4.5) mg/dL Magnesium (1.6-2.3) mg/dL Total Bilirubin 7.6 H (0.2-1.3) mg/dL AST 204 H (17-59) U/L ALT 20 L D (21-72) U/L Alkaline Phosphatase 242 H D (38-126) U/L Ammonia (9-33) umol/L Total Creatine Kinase 333 H (55-170) U/L Troponin I 0.0530 (0.00-0.120) ng/mL NT-Pro-B Natriuret Pep (0-900) pg/mL Total Protein 7.7 (6.3-8.3) g/dL Albumin 3.2 L (3.5-5.0) g/dL Globulin 4.5 H (2.2-3.9) gm/dL Albumin/Globulin Ratio 0.7 L (1.0-2.1) Triglycerides 121 (0-149) mg/dL Cholesterol 123 (0-199) mg/dL LDL Cholesterol Direct 71 (0-129) mg/dL HDL Cholesterol 29 L (30-70) mg/dL Alpha Fetoprotein (0.0-7.5) ng/mL Carcinoembryonic Ag (0-3.0) ng/mL Arterial Blood Potassium (3.6-5.2) mmol/L Urine Color (YELLOW) Urine Clarity (Clear) Urine pH (5.0-8.0) Ur Specific [place] (1.003-1.030) Urine Protein (NEGATIVE) mg/dL Urine Glucose (UA) (Normal) mg/dL Urine Ketones (NEGATIVE) mg/dL Urine Blood (NEGATIVE) Urine Nitrate (NEGATIVE) Urine Bilirubin (NEGATIVE) Urine Urobilinogen (0.2-1.0) mg/dL Ur Leukocyte Esterase (Negative) [place]/uL Urine WBC (Auto) (0-5) /hpf Urine RBC (Auto) (0-3) /hpf Ur Squamous Epith Cells (0-5) /hpf Urine Bacteria (<OCC) Urine Opiates Screen (NEGATIVE) Urine Methadone Screen (NEGATIVE) Ur Barbiturates Screen (NEGATIVE) Ur Phencyclidine Scrn (NEGATIVE) Ur Amphetamines Screen (NEGATIVE) U Benzodiazepines Scrn (NEGATIVE) U Oth Cocaine Metabols (NEGATIVE) U Cannabinoids Screen (NEGATIVE) Alcohol, Quantitative (0-10) mg/dl Blood Type Antibody Screen Laboratory Results - last 24 hr 10/17/18 10/17/18 10/17/18 18:29 18:29 18:29 WBC 9.1 RBC 3.05 L Hgb 10.8 L Hct 31.2 L MCV 102.3 H D MCH 35.4 H MCHC 34.6 RDW 18.2 H Plt Count 54 L D MPV 9.3 Neut % (Auto) 71.3 Lymph % (Auto) 17.6 L [place] % (Auto) 10.3 H Eos % (Auto) 0.2 Baso % (Auto) 0.6 Neut # (Auto) 6.5 Lymph # (Auto) 1.6 [place] # (Auto) 0.9 H Eos # (Auto) 0.0 Baso # (Auto) 0.1 Differential Comment PT 23.2 H INR 2.1 APTT 40 H Puncture Site pCO2 pO2 HCO3 ABG pH ABG Total CO2 ABG O2 Saturation ABG Base Excess ABG Hemoglobin ABG Carboxyhemoglobin POC ABG HHb (Measured) ABG Methemoglobin Bertrand Test ABG Potassium A-a O2 Difference Respiratory Index Hgb O2 Saturation Glucose Lactate Liter Flow Vent Mode Mechanical Rate FiO2 PEEP Crit Value Called To Crit Value Called By Crit Value Read Back Blood Gas Notified Time Sodium 133 Potassium 4.4 Chloride 92 L Carbon Dioxide 29 Anion Gap 17 BUN 25 H Creatinine 1.2 Est GFR ( Amer) > 60 Est GFR (Non-Af Amer) > 60 POC Glucose (mg/dL) Random Glucose 108 Hemoglobin A1c Calcium 7.7 L Phosphorus Magnesium Total Bilirubin 7.6 H AST 204 H ALT 20 L D Alkaline Phosphatase 242 H D Ammonia Total Creatine Kinase 333 H Troponin I 0.0530 NT-Pro-B Natriuret Pep Total Protein 7.7 Albumin 3.2 L Globulin 4.5 H Albumin/Globulin Ratio 0.7 L Triglycerides 121 Cholesterol 123 LDL Cholesterol Direct 71 HDL Cholesterol 29 L Alpha Fetoprotein Carcinoembryonic Ag Arterial Blood Potassium Urine Color Urine Clarity Urine pH Ur Specific [place] Urine Protein Urine Glucose (UA) Urine Ketones Urine Blood Urine Nitrate Urine Bilirubin Urine Urobilinogen Ur Leukocyte Esterase Urine WBC (Auto) Urine RBC (Auto) Ur Squamous Epith Cells Urine Bacteria Urine Opiates Screen Urine Methadone Screen Ur Barbiturates Screen Ur Phencyclidine Scrn Ur Amphetamines Screen U Benzodiazepines Scrn U Oth Cocaine Metabols U Cannabinoids Screen Alcohol, Quantitative Blood Type Antibody Screen 10/17/18 10/17/18 10/17/18 18:29 18:29 20:10 WBC RBC Hgb Hct MCV MCH MCHC RDW Plt Count MPV Neut % (Auto) Lymph % (Auto) [place] % (Auto) Eos % (Auto) Baso % (Auto) Neut # (Auto) Lymph # (Auto) [place] # (Auto) Eos # (Auto) Baso # (Auto) Differential Comment PT INR APTT Puncture Site pCO2 pO2 HCO3 ABG pH ABG Total CO2 ABG O2 Saturation ABG Base Excess ABG Hemoglobin ABG Carboxyhemoglobin POC ABG HHb (Measured) ABG Methemoglobin Bertrand Test ABG Potassium A-a O2 Difference Respiratory Index Hgb O2 Saturation Glucose Lactate Liter Flow Vent Mode Mechanical Rate FiO2 PEEP Crit Value Called To Crit Value Called By Crit Value Read Back Blood Gas Notified Time Sodium Potassium Chloride Carbon Dioxide Anion Gap BUN Creatinine Est GFR ( Amer) Est GFR (Non-Af Amer) POC Glucose (mg/dL) Random Glucose Hemoglobin A1c 5.2 Calcium Phosphorus Magnesium Total Bilirubin AST ALT Alkaline Phosphatase Ammonia Total Creatine Kinase Troponin I NT-Pro-B Natriuret Pep 3360 H Total Protein Albumin Globulin Albumin/Globulin Ratio Triglycerides Cholesterol LDL Cholesterol Direct HDL Cholesterol Alpha Fetoprotein Carcinoembryonic Ag Arterial Blood Potassium Urine Color Urine Clarity Urine pH Ur Specific [place] Urine Protein Urine Glucose (UA) Urine Ketones Urine Blood Urine Nitrate Urine Bilirubin Urine Urobilinogen Ur Leukocyte Esterase Urine WBC (Auto) Urine RBC (Auto) Ur Squamous Epith Cells Urine Bacteria Urine Opiates Screen Urine Methadone Screen Ur Barbiturates Screen Ur Phencyclidine Scrn Ur Amphetamines Screen U Benzodiazepines Scrn U Oth Cocaine Metabols U Cannabinoids Screen Alcohol, Quantitative < 10 Blood Type O POSITIVE Antibody Screen Negative 10/17/18 10/17/18 10/17/18 20:59 20:59 21:09 WBC RBC Hgb Hct MCV MCH MCHC RDW Plt Count MPV Neut % (Auto) Lymph % (Auto) [place] % (Auto) Eos % (Auto) Baso % (Auto) Neut # (Auto) Lymph # (Auto) [place] # (Auto) Eos # (Auto) Baso # (Auto) Differential Comment PT INR APTT Puncture Site pCO2 pO2 HCO3 ABG pH ABG Total CO2 ABG O2 Saturation ABG Base Excess ABG Hemoglobin ABG Carboxyhemoglobin POC ABG HHb (Measured) ABG Methemoglobin Bertrand Test ABG Potassium A-a O2 Difference Respiratory Index Hgb O2 Saturation Glucose Lactate Liter Flow Vent Mode Mechanical Rate FiO2 PEEP Crit Value Called To Crit Value Called By Crit Value Read Back Blood Gas Notified Time Sodium Potassium Chloride Carbon Dioxide Anion Gap BUN Creatinine Est GFR ( Amer) Est GFR (Non-Af Amer) POC Glucose (mg/dL) Random Glucose Hemoglobin A1c Calcium Phosphorus Magnesium Total Bilirubin AST ALT Alkaline Phosphatase Ammonia 236 H D Total Creatine Kinase Troponin I NT-Pro-B Natriuret Pep Total Protein Albumin Globulin Albumin/Globulin Ratio Triglycerides Cholesterol LDL Cholesterol Direct HDL Cholesterol Alpha Fetoprotein Carcinoembryonic Ag Arterial Blood Potassium Urine Color [place] Urine Clarity Clear Urine pH 6.0 Ur Specific [place] 1.023 Urine Protein 1+ H Urine Glucose (UA) Normal Urine Ketones Negative Urine Blood 2+ H Urine Nitrate Negative Urine Bilirubin 1+ H Urine Urobilinogen 4.0 Ur Leukocyte Esterase Trace Urine WBC (Auto) 17 H Urine RBC (Auto) 6 H Ur Squamous Epith Cells Urine Bacteria Rare Urine Opiates Screen Negative Urine Methadone Screen Negative Ur Barbiturates Screen Negative Ur Phencyclidine Scrn Negative Ur Amphetamines Screen Negative U Benzodiazepines Scrn Negative U Oth Cocaine Metabols Negative U Cannabinoids Screen Positive H Alcohol, Quantitative Blood Type Antibody Screen 10/17/18 10/18/18 10/18/18 23:55 05:30 05:51 WBC RBC Hgb Hct MCV MCH MCHC RDW Plt Count MPV Neut % (Auto) Lymph % (Auto) [place] % (Auto) Eos % (Auto) Baso % (Auto) Neut # (Auto) Lymph # (Auto) [place] # (Auto) Eos # (Auto) Baso # (Auto) Differential Comment PT INR APTT Puncture Site Lfem Radial pCO2 26 L 22 L pO2 80 216 H HCO3 31.1 H 28.0 ABG pH 7.64 H* 7.65 H* ABG Total CO2 28.8 H 24.9 ABG O2 Saturation 98.8 H 100.1 H ABG Base Excess 7.9 H 3.9 H ABG Hemoglobin 8.8 L ABG Carboxyhemoglobin 1.9 H POC ABG HHb (Measured) -0.1 L ABG Methemoglobin 1.1 Bertrand Test Neg Neg ABG Potassium 3.4 L A-a O2 Difference 116.0 184.0 Respiratory Index 1.5 0.9 Hgb O2 Saturation 97.2 Glucose 96 Lactate 5.0 H* Liter Flow 3.0 Vent Mode Simv/pc Mechanical Rate 18 FiO2 32.0 60.0 PEEP 5 Crit Value Called To Dr. katie florence Crit Value Called By mohinder Nassar rcp Crit Value Read Back Y Y Blood Gas Notified Time 15 605 Sodium 138.0 Potassium Chloride 102.0 Carbon Dioxide Anion Gap BUN Creatinine Est GFR ( Amer) Est GFR (Non-Af Amer) POC Glucose (mg/dL) Random Glucose Hemoglobin A1c Calcium Phosphorus Magnesium Total Bilirubin AST ALT Alkaline Phosphatase Ammonia Total Creatine Kinase Troponin I NT-Pro-B Natriuret Pep Total Protein Albumin Globulin Albumin/Globulin Ratio Triglycerides Cholesterol LDL Cholesterol Direct HDL Cholesterol Alpha Fetoprotein Carcinoembryonic Ag Arterial Blood Potassium 3.4 L Urine Color [place] Urine Clarity Clear Urine pH 6.0 Ur Specific [place] 1.045 H Urine Protein 1+ H Urine Glucose (UA) Normal Urine Ketones Negative Urine Blood 2+ H Urine Nitrate Negative Urine Bilirubin 1+ H Urine Urobilinogen 4.0 Ur Leukocyte Esterase Trace Urine WBC (Auto) 14 H Urine RBC (Auto) 33 H Ur Squamous Epith Cells 9 H Urine Bacteria Rare Urine Opiates Screen Urine Methadone Screen Ur Barbiturates Screen Ur Phencyclidine Scrn Ur Amphetamines Screen U Benzodiazepines Scrn U Oth Cocaine Metabols U Cannabinoids Screen Alcohol, Quantitative Blood Type Antibody Screen 10/18/18 10/18/18 10/18/18 06:13 06:15 06:43 WBC 8.8 RBC 2.34 L Hgb 8.4 L D Hct 23.9 L MCV 102.3 H MCH 35.9 H MCHC 35.1 RDW 18.2 H Plt Count 64 L MPV 9.6 Neut % (Auto) 59.9 Lymph % (Auto) 29.6 [place] % (Auto) 8.7 Eos % (Auto) 0.4 Baso % (Auto) 1.4 Neut # (Auto) 5.3 Lymph # (Auto) 2.6 [place] # (Auto) 0.8 Eos # (Auto) 0.0 Baso # (Auto) 0.1 Differential Comment PT INR APTT Puncture Site pCO2 pO2 HCO3 ABG pH ABG Total CO2 ABG O2 Saturation ABG Base Excess ABG Hemoglobin ABG Carboxyhemoglobin POC ABG HHb (Measured) ABG Methemoglobin Bertrand Test ABG Potassium A-a O2 Difference Respiratory Index Hgb O2 Saturation Glucose Lactate Liter Flow Vent Mode Mechanical Rate FiO2 PEEP Crit Value Called To Crit Value Called By Crit Value Read Back Blood Gas Notified Time Sodium Potassium Chloride Carbon Dioxide Anion Gap BUN Creatinine Est GFR ( Amer) Est GFR (Non-Af Amer) POC Glucose (mg/dL) 67 70 Random Glucose Hemoglobin A1c Calcium Phosphorus Magnesium Total Bilirubin AST ALT Alkaline Phosphatase Ammonia Total Creatine Kinase Troponin I NT-Pro-B Natriuret Pep Total Protein Albumin Globulin Albumin/Globulin Ratio Triglycerides Cholesterol LDL Cholesterol Direct HDL Cholesterol Alpha Fetoprotein Carcinoembryonic Ag Arterial Blood Potassium Urine Color Urine Clarity Urine pH Ur Specific [place] Urine Protein Urine Glucose (UA) Urine Ketones Urine Blood Urine Nitrate Urine Bilirubin Urine Urobilinogen Ur Leukocyte Esterase Urine WBC (Auto) Urine RBC (Auto) Ur Squamous Epith Cells Urine Bacteria Urine Opiates Screen Urine Methadone Screen Ur Barbiturates Screen Ur Phencyclidine Scrn Ur Amphetamines Screen U Benzodiazepines Scrn U Oth Cocaine Metabols U Cannabinoids Screen Alcohol, Quantitative Blood Type Antibody Screen 10/18/18 10/18/18 10/18/18 06:43 06:43 11:51 WBC RBC Hgb Hct MCV MCH MCHC RDW Plt Count MPV Neut % (Auto) Lymph % (Auto) [place] % (Auto) Eos % (Auto) Baso % (Auto) Neut # (Auto) Lymph # (Auto) [place] # (Auto) Eos # (Auto) Baso # (Auto) Differential Comment PT INR APTT Puncture Site pCO2 pO2 HCO3 ABG pH ABG Total CO2 ABG O2 Saturation ABG Base Excess ABG Hemoglobin ABG Carboxyhemoglobin POC ABG HHb (Measured) ABG Methemoglobin Bertrand Test ABG Potassium A-a O2 Difference Respiratory Index Hgb O2 Saturation Glucose Lactate Liter Flow Vent Mode Mechanical Rate FiO2 PEEP Crit Value Called To Crit Value Called By Crit Value Read Back Blood Gas Notified Time Sodium 136 Potassium 4.1 Chloride 93 L Carbon Dioxide 23 Anion Gap 23 H BUN 36 H Creatinine 2.2 H Est GFR ( Amer) 38 Est GFR (Non-Af Amer) 31 POC Glucose (mg/dL) 55 L Random Glucose 75 Hemoglobin A1c Calcium 7.5 L Phosphorus 1.7 L Magnesium 1.0 L* D Total Bilirubin AST ALT Alkaline Phosphatase Ammonia 299 H D Total Creatine Kinase Troponin I NT-Pro-B Natriuret Pep Total Protein Albumin Globulin Albumin/Globulin Ratio Triglycerides Cholesterol LDL Cholesterol Direct HDL Cholesterol Alpha Fetoprotein Carcinoembryonic Ag Arterial Blood Potassium Urine Color Urine Clarity Urine pH Ur Specific [place] Urine Protein Urine Glucose (UA) Urine Ketones Urine Blood Urine Nitrate Urine Bilirubin Urine Urobilinogen Ur Leukocyte Esterase Urine WBC (Auto) Urine RBC (Auto) Ur Squamous Epith Cells Urine Bacteria Urine Opiates Screen Urine Methadone Screen Ur Barbiturates Screen Ur Phencyclidine Scrn Ur Amphetamines Screen U Benzodiazepines Scrn U Oth Cocaine Metabols U Cannabinoids Screen Alcohol, Quantitative Blood Type Antibody Screen 10/18/18 10/18/18 10/18/18 11:52 13:32 13:32 WBC RBC Hgb Hct MCV MCH MCHC RDW Plt Count MPV Neut % (Auto) Lymph % (Auto) [place] % (Auto) Eos % (Auto) Baso % (Auto) Neut # (Auto) Lymph # (Auto) [place] # (Auto) Eos # (Auto) Baso # (Auto) Differential Comment PT INR APTT Puncture Site pCO2 pO2 HCO3 ABG pH ABG Total CO2 ABG O2 Saturation ABG Base Excess ABG Hemoglobin ABG Carboxyhemoglobin POC ABG HHb (Measured) ABG Methemoglobin Bertrand Test ABG Potassium A-a O2 Difference Respiratory Index Hgb O2 Saturation Glucose Lactate Liter Flow Vent Mode Mechanical Rate FiO2 PEEP Crit Value Called To Crit Value Called By Crit Value Read Back Blood Gas Notified Time Sodium Potassium Chloride Carbon Dioxide Anion Gap BUN Creatinine Est GFR ( Amer) Est GFR (Non-Af Amer) POC Glucose (mg/dL) 61 L Random Glucose Hemoglobin A1c Calcium Phosphorus Magnesium Total Bilirubin AST ALT Alkaline Phosphatase Ammonia Total Creatine Kinase Troponin I NT-Pro-B Natriuret Pep Total Protein Albumin Globulin Albumin/Globulin Ratio Triglycerides Cholesterol LDL Cholesterol Direct HDL Cholesterol Alpha Fetoprotein 2.5 Carcinoembryonic Ag 11.3 H Arterial Blood Potassium Urine Color Urine Clarity Urine pH Ur Specific [place] Urine Protein Urine Glucose (UA) Urine Ketones Urine Blood Urine Nitrate Urine Bilirubin Urine Urobilinogen Ur Leukocyte Esterase Urine WBC (Auto) Urine RBC (Auto) Ur Squamous Epith Cells Urine Bacteria Urine Opiates Screen Urine Methadone Screen Ur Barbiturates Screen Ur Phencyclidine Scrn Ur Amphetamines Screen U Benzodiazepines Scrn U Oth Cocaine Metabols U Cannabinoids Screen Alcohol, Quantitative Blood Type Antibody Screen EKG/Cardiology Studies: Cardiology / EKG Studies 10/17/18 18:24 ELECTROCARDIOGRAM Stat Comment: Mode Of Transportation: BED Reason For Exam: code stroke Fingerstick Blood Sugar Results: 61 Review of Systems - Review of Systems Systems not reviewed;Unavailable: Altered Mental Status Critical Care Progress Note - Nutrition Nutrition: Nutrition Category Date Time Status Heart Healthy Diet [DIET] Diets 10/17/18 Breakfast Active NPO Diet [DIET] Diets 10/19/18 Breakfast Active Assessment/Plan (1) Hepatic encephalopathy Assessment and plan: Patient was in hepatic encephalopathy with hyperammonemia. He then developed hypotension, possibly secondary to adrenal insufficiency, started on multiple pressors, then stress dose steroids. This made dialysis impossible. He then quickly developed seizures secondary to suspected cerebral edema. Mannitol was ordered and patient was escalated on versed drip. Patient was loaded with Keppra. He then became severely hypotensive and hypoxic. I called his sister to inform her of his imminent , and requested making him DNR, to which she agreed. He then became progressively bradycardic and ultimately at 15:29. Sister was at bedside. Dr. Néstor Vanessa was notified. Critical Care time 120 minutes Current Visit: Yes Status: Acute
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
--- NOTE | 2018-10-19 02:25 | CON ---
NEPHROLOGY CONSULTATION HISTORY OF PRESENT ILLNESS: The patient is a 57-year-old male with past medical history of liver dysfunction, hypertension, brought to ED for altered mental status. Nephrology is being consulted for acute renal failure. History obtained from medical staff and patient record as the patient is intubated, sedated. Family members reportedly stated that the patient had been verbal in the morning, but was lying in bed all day, then became nonverbal at some time yesterday. He usually drinks frequently, but did not have any alcohol on day of presentation. The patient also reportedly fell two days ago after being discharged from [facility]. In ED, code stroke was called for altered mental status and the patient underwent CTA of head and neck, which was unremarkable. The patient also underwent CTA of chest, abdomen, and pelvis with IV contrast that showed possible cholecystitis, enteritis, and colitis. The patient was given Narcan for altered mental status, but without any improvement in mental status, was found to have markedly elevated ammonia level; was started on lactulose via NG tube, subsequently intubated for airway protection. PAST MEDICAL HISTORY: As above. SOCIAL HISTORY: Unclear about history of alcohol abuse. FAMILY HISTORY: Unable to be obtained. REVIEW OF SYSTEMS: Limited to HPI as the patient is intubated. PHYSICAL EXAMINATION: VITAL SIGNS: This morning, blood pressure 76/25, heart rate 99, respirations 22, temperature 99.7, O2 saturation 100% on 40% FiO2 via mechanical ventilation. GENERAL: The patient is having frequent twitching of upper extremities, generalized upper body twitching. HEENT: No cervical lymphadenopathy. The patient is intubated. RESPIRATORY: The patient is tachypneic. Lungs clear to auscultation bilaterally. CARDIOVASCULAR: Heart sounds S1, S2 normal. No murmurs, no gallops, no rubs. GASTROINTESTINAL: Abdomen mildly distended, soft. GENITOURINARY: No bladder distention. EXTREMITIES: Mild bilateral lower leg edema. SKIN: Warm. No cyanosis. NEUROLOGIC: Having epileptic-like activity. LABORATORY DATA: This morning, CBC: WBC 8.8, hemoglobin 8.4, hematocrit 23.9, platelets 64. Chemistry panel: Sodium 136, potassium 4.1, chloride 93, bicarb 23, BUN 36, creatinine 2.2, increased from 1.2, glucose 75, calcium 7.5, phosphorus 1.7, magnesium 1, ammonia level 299. Hepatic labs from yesterday; T bili 7.6, AST 204, ALT 20, alk phos 242, CK 333, albumin 3.2. Urine studies: UA: Urine protein 1+, blood 2+, 33 rbc's per high-powered field, 14 wbc's per high-powered field, rare bacteria. IMAGING DATA: Chest x-ray directly visualized, questionable increased pulmonary vascular congestion. Abdominal ultrasound report mentioning negative sonographic Padilla's sign, mild fullness versus mild hydronephrosis of right renal collecting system. ASSESSMENT AND PLAN: 1. Acute renal failure, multifactorial. Most obvious is acute tubular necrosis secondary to shock with the patient being persistently hypotensive, currently on two vasopressors; may have also had contrast-induced injury after having two contrast imaging studies. Currently with stable FiO2 requirement; has significant increased anion gap, metabolic acidosis with superimposed metabolic alkalosis and respiratory alkalosis; potassium level is stable. At this point, there is no urgent need for renal replacement therapy. Need to ensure adequate intravascular volume repletion as the patient may be septic; agree with Intensive Care Unit and giving 3 L intravenous fluid bolus urgently. Avoid further nephrotoxic agents. 2. Electrolyte abnormalities. The patient with lactic acidosis in the setting of what appears to be septic shock; has profound respiratory alkalosis as well as some degree of metabolic alkalosis; the patient also with marked hypophosphatemia and hypomagnesemia; agree with Intensive Care Unit Team to increase sedation in order to correct respiratory alkalosis (may help stabilize blood pressure as well). Diamox will not work as the patient is anuric; also metabolic compensation for acidosis should dissipate as renal failure progresses. Need to be careful in replenishing phosphorus and magnesium as the patient is anuric; we will repeat BMP at noon as well as phos and mag levels before replenishing further. 3. Shock possibly due to underlying sepsis with gastrointestinal cause suspected; the patient is currently on vancomycin 1 g daily as well as Zosyn 3.375 every 6 hours. At this point, we should dose antibiotics for GFR less than 10 as the patient is anuric; we will change Zosyn dosing to 2.25 g every 8 hours, to check vancomycin random level before re-dosing. Thank you for this referral. We will be following up closely. Critical care time spent assessing the patient and discussion with Critical Care Team over 35 minutes. Froylan Post MD [facility] # [id number]
--- NOTE | 2018-10-19 07:59 | HP ---
CHIEF COMPLAINT: Altered mental status. HISTORY OF PRESENT ILLNESS: This is a 57-year-old white male with history of obesity, alcoholic liver disease, alcoholic cirrhosis of liver, edema, and family member brought him to emergency room. According to family member, the patient was speaking in the morning on the day the patient was brought into emergency room, and the patient was lying in the bed all day. He was not talking, and it was unknown how long he was not talking. According to the patient, he thinks a lot and the patient has multiple hospitalization with alcohol abuse intoxication. According to the patient on the day after he was brought into emergency room, he did not have any alcohol. EMS found the patient to be weak in general. The patient was not moving, not responsive. The patient also had a fall two days ago, after he left the hospital and sustained bruises that extend from epigastric area to his left lower quadrant, right side of the thigh. A code stroke was called in the emergency room, and the patient was admitted to ICU with past medical history of hypertension, hyperlipidemia. No further details obtainable. PAST MEDICAL HISTORY: Cirrhosis of liver, alcoholic liver disease, alcoholism, pancytopenia, GI bleed. SOCIAL HISTORY: He smokes, he drinks. FAMILY HISTORY: Unable to obtain at the moment. CURRENT MEDICATIONS: At home, he has been taking clonidine, Demadex, multivitamin, thiamine, Aldactone, Protonix, and Spiriva. PHYSICAL EXAMINATION: GENERAL: A middle-aged male, drowsy, lethargic. VITAL SIGNS: Blood pressure 76/38, pulse 113, respiratory rate 18, temperature 99. SKIN: Flushed; has extensive bruising all over including abdominal wall, arms. HEENT: Atraumatic, normocephalic. Negative pallor. Negative jaundice. Extraocular movements unable to ascertain. Pupils sluggishly reactive. NECK: Supple, flat neck vein. No JVD. No lymph node. No thyromegaly. Oral hygiene poor. CHEST WALL: Bilateral symmetrical expansion. No masses. LUNGS: Bilaterally clear. No rales. No rhonchi. CVS: S1, S2 regular. ABDOMEN: Distended with large liver and large spleen. GENITAL: Swollen. EXTREMITIES: +2 pitting edema. CENTRAL NERVOUS SYSTEM: Unresponsive. ASSESSMENT: 1. Alcoholic, hepatic encephalopathy with end-stage liver disease due to alcoholic liver disease. 2. Morbid obesity. 3. Chronic obstructive pulmonary disease. PLAN: The patient was admitted to ICU, and the patient subsequently . Néstor Vanessa MD
--- NOTE | 2018-10-19 23:04 | CARD ---
APPROVED REPORT Date of service: 10/17/2018 EKG Measurement Heart [id number] CT [id number] <Conclusion> Sinus tachycardia Possible Left atrial enlargement Prolonged QT Abnormal ECG
== END 2018-10-18 17:58 | DRG 280 ==
LOC: C.ER 18:18 → C.9E 21:28 → C.9I 21:48
PROVIDERS: ADMIT Internal Medicine; ATTEND Internal Medicine
PROC: 0BH17EZ Insertion of Endotracheal Airway into Trachea, Via Natural or Artificial Opening (ICD-10-PCS; principal; 2018-10-18)
PROC: 5A1935Z Respiratory Ventilation, Less than 24 Consecutive Hours (ICD-10-PCS; 2018-10-18)
DX: K70.30 Alcoholic cirrhosis of liver without ascites (principal); K70.41 Alcoholic hepatic failure with coma; N17.0 Acute kidney failure with tubular necrosis; G93.6 Cerebral edema; E87.4 Mixed disorder of acid-base balance; R56.9 Unspecified convulsions; K92.2 Gastrointestinal hemorrhage, unspecified; D69.6 Thrombocytopenia, unspecified; E78.5 Hyperlipidemia, unspecified; E83.42 Hypomagnesemia; E86.0 Dehydration; D63.8 Anemia in other chronic diseases classified elsewhere; F17.200 Nicotine dependence, unspecified, uncomplicated; I10 Essential (primary) hypertension; R09.02 Hypoxemia; E78.00 Pure hypercholesterolemia, unspecified; E66.01 Morbid (severe) obesity due to excess calories; Z91.19 Patient's noncompliance with other medical treatment and regimen; F12.10 Cannabis abuse, uncomplicated; J44.9 Chronic obstructive pulmonary disease, unspecified